=== PATIENT | female | born 1950 | race Caucasian/White ===

== ENCOUNTER → 2018-11-11 08:15 | Outpatient (CLI) | payer MEDICARE, SELFPAY ==
--- NOTE | 2018-11-11 08:19 | CT_ITS ---
CT lung screening EXAM: CT LUNG LOW DOSE WO CONTRAST HISTORY: 41 pack smoking history asymptomatic for lung cancer ITS.REASON: H/O TOBACCO DEPENDENCE ORDERING PHYSICIAN: Anne Whyte MD PATIENT AGE: 68 years COMPARISON: None TECHNIQUE: The exam was performed on a GE Light Speed [address] scanner using 2.90 mGy CTDI. A low dose helical CT CHEST was performed on a multi-detector scanner. All CT scans at the facility use one or more dose reduction, viz: automated exposure control, ma/kV adjustment per patient size (including targeted exams where dose is matched to indication, i.e. head), or iterative reconstruction technique. The LDCT was performed in a facility that meets the criteria for the screening program. Data regarding this exam was submitted to ACR which is an approved registry. The order for this exam indicates that it came as a result of a lung cancer screening counseling shard decision-making visit that included all the elements required of such a visit including smoking cessation. The radiologist interpreting this exam meets the CMS criteria for the LDCT lung cancer screening program. The exam is reported using the Lung-RADS classification scale and reported to the ACR registry. NOTE: This study was performed for the specific purposes of lung cancer screening and is not an alternative to diagnostic chest CT. RADIATION DOSE: CTDI vol(CT dose Index-volume) = 2.90mG DLP (Dose Length Product) = 102.00 mGcm FINDINGS: There is hyperinflation with bronchial thickening consistent with obstructive chronic bronchitis. 5 mm noncalcified nodule right apex 4 mm calcified nodule superior segment right lower lobe 4 mm nodule right middle lobe well-circumscribed Upper abdominal images show possible cholelithiasis. This may be confirmed with ultrasound. IMPRESSION: 1. Lung RADS Category: 2, benign 2. Other findings: COPD, possible cholelithiasis. RECOMMENDATIONS: 12 month LDCT follow-up
--- NOTE | 2018-11-11 08:20 | MM_ITS ---
MM Dig screening mamm BI w/CAD CAD Screening COMPARISON: Digital mammograms with CAD 08/19/2016 and 10/27/2014 INDICATION: There is no personal or family history of breast cancer. There has been a previous biopsy in each breast for benign disease. TECHNIQUE: Standard CC and MLO images were obtained. R2 CAD reviewed. FINDINGS: Scattered fibroglandular densities are seen in each breast. A few benign-appearing microcalcifications in each breast. There is a possible developing asymmetric density central portion of the left breast with a central benign-appearing calcification. The borders are somewhat ill-defined and recommend patient return for spot compression views in MLO and CC projection and ultrasound may be necessary as well. There is a biopsy clip right breast and there is a mole marker right breast. IMPRESSION: Fibrofatty parenchyma with possible developing asymmetric density left breast BI-RADS Category: 0 Need Additional Imaging Evaluation RECOMMENDED FOLLOW-UP: IMM - IMMEDIATE FOLLOW-UP RECOMMENDED (A letter has been sent to the patient regarding results of the study.)
== END ==
PROVIDERS: PCP Family Medicine; Visit Provider Family Medicine
DX: Z12.31 Encounter for screening mammogram for malignant neoplasm of breast (principal); Z12.2 Encounter for screening for malignant neoplasm of respiratory organs; Z87.891 Personal history of nicotine dependence
CPT/HCPCS: 77067

== ENCOUNTER → 2018-11-24 13:37 | Outpatient (CLI) | payer MEDICARE, SELFPAY ==
--- NOTE | 2018-11-24 13:39 | US_ITS ---
MM Dig mamm DX unilat LT CAD Left breast ultrasound complete with axilla INDICATION: Follow-up abnormal screening study ORDERING PHYSICIAN: Anne Whyte MD PATIENT AGE: 68 years COMPARISON: None TECHNIQUE: Problem-solving views performed along with left breast ultrasound FINDINGS: There is average fibroglandular tissue. A stable nodule is present in the retroareolar region at 8 mm. A persistent area of asymmetric density is present in 5:00 region of the left breast at 10 mm. This is associated with a benign-appearing calcific density and corresponds to the abnormality noted on the screening study. Left breast ultrasound with axilla: Are scattered small hypoechoic nodules including a 2 mm area at 12:00 and additional 2 mm area 12:00, 4 mm hypoechoic area at 1:00, a 4 mm cyst at 3:00. At 5:00 there is a suspicious hypoechoic area with poor through transmission of sound. This measures approximately 10 x 8 mm and is suspicious. Biopsy is recommended. Small amount present in the left breast.. IMPRESSION: Suspicious hypoechoic nodule at 10 x 8 mm 5:00 which may correspond to the mammographic abnormality. Ultrasound guided mammotome biopsy is recommended. Postbiopsy mammogram will be needed to confirm that this corresponds to the mammographic abnormality. BI-RADS Category: 4 Suspicious Abnormality-Biopsy Considered RECOMMENDED FOLLOW-UP: BIO - BIOPSY RECOMMENDED (A letter has been sent to the patient regarding results of the study.)
== END ==
PROVIDERS: PCP Family Medicine; Visit Provider Family Medicine
DX: R92.8 Other abnormal and inconclusive findings on diagnostic imaging of breast (principal)
CPT/HCPCS: 76641; 77065

== ENCOUNTER → 2018-12-08 09:24 | Outpatient (CLI) | payer MEDICARE, SELFPAY ==
--- NOTE | 2018-12-08 09:31 | US_ITS ---
US mammotome bx LT, MM clip placement LT INDICATION: Abnormal mammogram and abnormal ultrasound with a suspicious lesion at 5:00 ORDERING PHYSICIAN: Anne Whyte MD PATIENT AGE: 68 years COMPARISON: 11/24/2018 TECHNIQUE: Following obtaining informed consent using ultrasound guidance and reforming time out procedure under aseptic conditions and local anesthesia with 1% buffered lidocaine and deeper anesthesia with lidocaine mixed with epinephrine, a dermotomy was performed and 9 gauge mammotomy needle inserted in appropriate position and multiple mammotomy cores were obtained. The lesion didn't decrease in size. A biopsy clip was then placed. Post clip placement mammogram images show a biopsy changes in the area of interest in the 5:00 region of the left breast with clip in place. The patient did tolerate the procedure well without evidence of immediate complication. Pathology: Invasive ductal carcinoma IMPRESSION: Successful and uneventful mammotome biopsy of the left breast at 5:00 showing invasive ductal carcinoma. Recommendations: Surgical consult with excisional biopsy.
== END ==
PROVIDERS: PCP Family Medicine; Visit Provider Family Medicine
DX: N63.24 Unspecified lump in the left breast, lower inner quadrant (principal); R92.8 Other abnormal and inconclusive findings on diagnostic imaging of breast
CPT/HCPCS: 19083; 76942; 77065; 88305; 88360; C2618

== ENCOUNTER → 2019-02-04 10:15 | Outpatient (CLI) | payer MEDICARE, SELFPAY ==
[2019-02-04 10:36] LABS: Basophils # 0.1 K/mm3 (0-0.2); Basophils % 0.6 % (0.1-2.0); Eosinophils # 0.2 K/mm3 (0.0-0.4); Eosinophils % 2.7 % (0.1-12.0); Hematocrit 40.6 % (37.0-47.0); Hemoglobin 13.6 g/dL (12.2-16.2); Lymphocytes # 1.8 K/mm3 (0.7-4.5); Lymphocytes % 22.8 % (10-50); Mean Corpuscular HGB Conc 33.5 g/dL (31.8-35.4); Mean Corpuscular Hemoglobin 30.2 pg (27.0-31.2); Mean Platelet Volume 7.1 fl (7.4-10.4); Monocytes # 0.5 K/mm3 (0.1-1.0); Monocytes % 5.8 % (1.7-9.3); Neutrophils # 5.3 K/mm3 (1.8-7.8); Platelet Count 306 K/mm3 (142-424); Red Blood Count 4.51 M/mm3 (4.20-5.40); Red Cell Distribution Width 12.8 % (11.5-17.5); White Blood Count 7.7 K/mm3 (4.8-10.8)
[2019-02-04 12:05] LABS: Anion Gap 15.7 mEq/L (5-15); Blood Urea Nitrogen 30 mg/dL (7-18); Calcium 9.4 mg/dL (8.5-10.1); Carbon Dioxide 27 mmol/L (21.0-32.0); Chloride 102 mmol/L (98-107); Creatinine,Serum 1.57 mg/dL (0.55-1.02); Estimated Glomerular Filt Rate 33 ml/min (>60); GFR (African American) 40 ML/MIN (>60); Glucose 96 mg/dL (74-106); Potassium 4.7 mmoL/L (3.5-5.1); Sodium 140 mmol/L (136-145)
== END ==
PROVIDERS: Visit Provider Surgery
DX: C50.912 Malignant neoplasm of unspecified site of left female breast (principal)
CPT/HCPCS: 36415; 80048; 85025

== ENCOUNTER → 2019-03-07 10:31 | Outpatient (CLI) | payer MEDICARE, SELFPAY ==
[2019-03-07 11:57] LABS: Basophils # 0.1 K/mm3 (0-0.2); Basophils % 1.4 % (0.1-2.0); Eosinophils # 0.2 K/mm3 (0.0-0.4); Eosinophils % 2.6 % (0.1-12.0); Hematocrit 42.9 % (37.0-47.0); Hemoglobin 13.7 g/dL (12.2-16.2); Lymphocytes # 1.9 K/mm3 (0.7-4.5); Lymphocytes % 26.1 % (10-50); Mean Corpuscular HGB Conc 31.9 g/dL (31.8-35.4); Mean Corpuscular Hemoglobin 29.5 pg (27.0-31.2); Mean Corpuscular Volume 92.6 fl (81-99); Mean Platelet Volume 7.9 fl (7.4-10.4); Monocytes # 0.6 K/mm3 (0.1-1.0); Monocytes % 7.5 % (1.7-9.3); Neutrophils # 4.6 K/mm3 (1.8-7.8); Neutrophils % 62.4 % (37.0-80.0); Platelet Count 350 K/mm3 (142-424); Red Blood Count 4.64 M/mm3 (4.20-5.40); Red Cell Distribution Width 13.3 % (11.5-17.5); White Blood Count 7.3 K/mm3 (4.8-10.8)
[2019-03-07 12:34] LABS: Alanine Aminotransferase 25 U/L (12-78); Albumin Level 3.6 gm/dL (3.4-5.0); Albumin/Globulin Ratio 1.1 (1.1-1.8); Alkaline Phosphatase 101 U/L (46-116); Anion Gap 15.7 mEq/L (5-15); Aspartate Amino Transferase 14 U/L (15-37); Bilirubin,Total 0.4 mg/dL (0.2-1.0); Blood Urea Nitrogen 29 mg/dL (7-18); Calcium 9.2 mg/dL (8.5-10.1); Carbon Dioxide 26 mmol/L (21.0-32.0); Chloride 101 mmol/L (98-107); Creatinine,Serum 1.37 mg/dL (0.55-1.02); Estimated Glomerular Filt Rate 38 ml/min (>60); GFR (African American) 47 ML/MIN (>60); Globulin 3.3 gm/dl (1.3-3.2); Glucose 93 mg/dL (74-106); Potassium 4.7 mmoL/L (3.5-5.1); Sodium 138 mmol/L (136-145); Total Protein,Serum 6.9 gm/dL (6.4-8.2)
== END ==
PROVIDERS: Visit Provider Internal Medicine Medical Oncology
DX: C50.912 Malignant neoplasm of unspecified site of left female breast (principal)
CPT/HCPCS: 36415; 80053; 85025

== ENCOUNTER 2019-03-10 10:45 | Outpatient (CLI) | payer MEDICARE, SELFPAY ==
[2019-03-10] VITALS (8 sets, daily range): BP systolic 107–128; BP diastolic 51–69; PULSE 79–91; RESP 16–18; TEMP 36.3; O2SAT 97
== END 2019-03-10 13:40 | disposition home or self-care (01) ==
LOC: INF 15:49
PROVIDERS: Visit Provider Internal Medicine Medical Oncology
DX: Z51.11 Encounter for antineoplastic chemotherapy (principal); C50.912 Malignant neoplasm of unspecified site of left female breast
CPT/HCPCS: 96413; 96415; 96417; J7060; J8501; J9070; J9171; Q0166

== ENCOUNTER 2019-03-31 11:49 | Outpatient (CLI) | payer MEDICARE, SELFPAY ==
[2019-03-31 11:51] VITALS: BMI 36.6
[2019-03-31 12:29] LABS: Basophils # 0.1 K/mm3 (0-0.2); Basophils % 0.8 % (0.1-2.0); Eosinophils # 0.1 K/mm3 (0.0-0.4); Eosinophils % 0.8 % (0.1-12.0); Hematocrit 34.5 % (37.0-47.0); Hemoglobin 11.2 g/dL (12.2-16.2); Lymphocytes # 2.2 K/mm3 (0.7-4.5); Lymphocytes % 17.7 % (10-50); Mean Corpuscular HGB Conc 32.5 g/dL (31.8-35.4); Mean Corpuscular Hemoglobin 28.2 pg (27.0-31.2); Mean Corpuscular Volume 86.6 fl (81-99); Mean Platelet Volume 7.2 fl (7.4-10.4); Monocytes # 0.8 K/mm3 (0.1-1.0); Monocytes % 6.1 % (1.7-9.3); Neutrophils # 9.4 K/mm3 (1.8-7.8); Neutrophils % 74.6 % (37.0-80.0); Platelet Count 336 K/mm3 (142-424); Red Blood Count 3.98 M/mm3 (4.20-5.40); Red Cell Distribution Width 13.3 % (11.5-17.5); White Blood Count 12.6 K/mm3 (4.8-10.8)
[2019-03-31 12:40] LABS: Alanine Aminotransferase 25 U/L (12-78); Albumin Level 3.1 gm/dL (3.4-5.0); Albumin/Globulin Ratio 0.9 (1.1-1.8); Alkaline Phosphatase 91 U/L (46-116); Anion Gap 10.9 mEq/L (5-15); Aspartate Amino Transferase 14 U/L (15-37); Bilirubin,Total 0.3 mg/dL (0.2-1.0); Blood Urea Nitrogen 26 mg/dL (7-18); Calcium 9.3 mg/dL (8.5-10.1); Carbon Dioxide 29 mmol/L (21.0-32.0); Chloride 101 mmol/L (98-107); Creatinine Clearance Estimated 61 mL/min (50-200); Creatinine,Serum 1.29 mg/dL (0.55-1.02); Estimated Glomerular Filt Rate 41 ml/min (>60); GFR (African American) 50 ML/MIN (>60); Globulin 3.5 gm/dl (1.3-3.2); Glucose 119 mg/dL (74-106); Potassium 3.9 mmoL/L (3.5-5.1); Sodium 137 mmol/L (136-145); Total Protein,Serum 6.6 gm/dL (6.4-8.2)
[2019-03-31 14:08] VITALS: BP 132/60; PULSE 82; RESP 18; TEMP 36.6; O2SAT 98
[2019-03-31 14:38] VITALS: BP 129/64; PULSE 88; RESP 18; O2SAT 97
[2019-03-31 15:08] VITALS: BP 136/68; PULSE 84; RESP 18; O2SAT 97
[2019-03-31 15:38] VITALS: BP 130/67; PULSE 85; RESP 18; O2SAT 96
[2019-03-31 16:10] VITALS: BP 127/69; PULSE 81; RESP 18; O2SAT 97
== END 2019-03-31 16:10 | disposition home or self-care (01) ==
LOC: INF 11:49
PROVIDERS: Visit Provider Internal Medicine Medical Oncology
DX: Z51.11 Encounter for antineoplastic chemotherapy (principal); C50.912 Malignant neoplasm of unspecified site of left female breast
CPT/HCPCS: 80053; 85025; 96413; 96415; 96417; J8501; J9070; J9171; Q0166

== ENCOUNTER 2019-04-21 09:52 | Outpatient (CLI) | payer MEDICARE, SELFPAY ==
[2019-04-21 09:56] VITALS: BMI 36.0
[2019-04-21 10:15] LABS: Basophils # 0.1 K/mm3 (0-0.2); Basophils % 0.6 % (0.1-2.0); Eosinophils % 0.4 % (0.1-12.0); Hematocrit 32.8 % (37.0-47.0); Hemoglobin 10.4 g/dL (12.2-16.2); Lymphocytes # 1.3 K/mm3 (0.7-4.5); Lymphocytes % 12.1 % (10-50); Mean Corpuscular HGB Conc 31.7 g/dL (31.8-35.4); Mean Corpuscular Hemoglobin 28.8 pg (27.0-31.2); Mean Corpuscular Volume 90.9 fl (81-99); Mean Platelet Volume 7.8 fl (7.4-10.4); Monocytes # 0.6 K/mm3 (0.1-1.0); Monocytes % 5.4 % (1.7-9.3); Neutrophils # 8.7 K/mm3 (1.8-7.8); Neutrophils % 81.5 % (37.0-80.0); Platelet Count 351 K/mm3 (142-424); Red Blood Count 3.61 M/mm3 (4.20-5.40); White Blood Count 10.7 K/mm3 (4.8-10.8)
[2019-04-21 10:28] LABS: Alanine Aminotransferase 20 U/L (12-78); Albumin Level 2.9 gm/dL (3.4-5.0); Albumin/Globulin Ratio 0.9 (1.1-1.8); Alkaline Phosphatase 99 U/L (46-116); Anion Gap 11.9 mEq/L (5-15); Aspartate Amino Transferase 13 U/L (15-37); Bilirubin,Total 0.2 mg/dL (0.2-1.0); Blood Urea Nitrogen 19 mg/dL (7-18); Calcium 8.9 mg/dL (8.5-10.1); Carbon Dioxide 28 mmol/L (21.0-32.0); Chloride 102 mmol/L (98-107); Creatinine Clearance Estimated 57 mL/min (50-200); Creatinine,Serum 1.36 mg/dL (0.55-1.02); Estimated Glomerular Filt Rate 39 ml/min (>60); GFR (African American) 47 ML/MIN (>60); Globulin 3.4 gm/dl (1.3-3.2); Glucose 127 mg/dL (74-106); Potassium 3.9 mmoL/L (3.5-5.1); Sodium 138 mmol/L (136-145); Total Protein,Serum 6.3 gm/dL (6.4-8.2)
[2019-04-21 12:18] VITALS: BP 124/65; PULSE 78; RESP 18; TEMP 36.6; O2SAT 98
[2019-04-21 12:48] VITALS: BP 120/68; PULSE 76; RESP 18; O2SAT 97
[2019-04-21 13:18] VITALS: BP 121/67; PULSE 77; RESP 18; O2SAT 97
[2019-04-21 13:48] VITALS: BP 119/67; PULSE 77; RESP 18; O2SAT 97
[2019-04-21 14:18] VITALS: BP 127/69; PULSE 78; RESP 18; O2SAT 98
== END 2019-04-21 14:18 | disposition home or self-care (01) ==
LOC: INF 09:52
PROVIDERS: Visit Provider Internal Medicine Medical Oncology
DX: Z51.11 Encounter for antineoplastic chemotherapy (principal); C50.912 Malignant neoplasm of unspecified site of left female breast
CPT/HCPCS: 80053; 85025; 96413; 96415; 96417; J8501; J9070; J9171; Q0166

== ENCOUNTER 2019-05-12 10:30 | Outpatient (CLI) | payer MEDICARE, SELFPAY ==
[2019-05-12 10:32] VITALS: BMI 33.6
[2019-05-12 11:01] LABS: Basophils # 0.1 K/mm3 (0-0.2); Basophils % 0.5 % (0.1-2.0); Eosinophils % 0.2 % (0.1-12.0); Hematocrit 32.8 % (37.0-47.0); Hemoglobin 10.4 g/dL (12.2-16.2); Lymphocytes # 1.5 K/mm3 (0.7-4.5); Lymphocytes % 13.6 % (10-50); Mean Corpuscular HGB Conc 31.7 g/dL (31.8-35.4); Mean Corpuscular Hemoglobin 29.4 pg (27.0-31.2); Mean Corpuscular Volume 92.7 fl (81-99); Mean Platelet Volume 6.9 fl (7.4-10.4); Monocytes # 0.6 K/mm3 (0.1-1.0); Monocytes % 5.4 % (1.7-9.3); Neutrophils # 8.6 K/mm3 (1.8-7.8); Neutrophils % 80.3 % (37.0-80.0); Platelet Count 395 K/mm3 (142-424); Red Blood Count 3.54 M/mm3 (4.20-5.40); Red Cell Distribution Width 16.4 % (11.5-17.5); White Blood Count 10.8 K/mm3 (4.8-10.8)
[2019-05-12 12:29] LABS: Alanine Aminotransferase 22 U/L (12-78); Albumin/Globulin Ratio 0.8 (1.1-1.8); Alkaline Phosphatase 97 U/L (46-116); Aspartate Amino Transferase 23 U/L (15-37); Bilirubin,Total 0.3 mg/dL (0.2-1.0); Blood Urea Nitrogen 16 mg/dL (7-18); Carbon Dioxide 26 mmol/L (21.0-32.0); Chloride 100 mmol/L (98-107); Creatinine Clearance Estimated 57 mL/min (50-200); Creatinine,Serum 1.31 mg/dL (0.55-1.02); Estimated Glomerular Filt Rate 40 ml/min (>60); GFR (African American) 49 ML/MIN (>60); Globulin 3.7 gm/dl (1.3-3.2); Glucose 114 mg/dL (74-106); Sodium 134 mmol/L (136-145); Total Protein,Serum 6.7 gm/dL (6.4-8.2)
[2019-05-12 12:32] VITALS: BP 125/51; PULSE 90; RESP 20; TEMP 36.7; O2SAT 98
[2019-05-12 13:02] VITALS: BP 130/50; PULSE 84; RESP 20; O2SAT 97
[2019-05-12 13:32] VITALS: BP 138/51; PULSE 88; RESP 20; O2SAT 97
[2019-05-12 14:02] VITALS: BP 151/60; PULSE 82; RESP 20; O2SAT 97
[2019-05-12 14:45] VITALS: BP 136/55; PULSE 84; RESP 20; O2SAT 98
== END 2019-05-12 14:45 | disposition home or self-care (01) ==
LOC: INF 10:30
PROVIDERS: Visit Provider Internal Medicine Medical Oncology
DX: Z51.11 Encounter for antineoplastic chemotherapy (principal); C50.912 Malignant neoplasm of unspecified site of left female breast
CPT/HCPCS: 80053; 85025; 96413; 96415; 96417; J1642; J8501; J9070; J9171; Q0166

== ENCOUNTER 2019-06-20 13:53 | Outpatient (CLI) | payer MEDICARE, SELFPAY | END 2019-06-20 14:16 | disposition home or self-care (01) | LOC: INF 13:53 | PROVIDERS: Visit Provider Internal Medicine Medical Oncology | DX: Z45.2 Encounter for adjustment and management of vascular access device (principal); C50.912 Malignant neoplasm of unspecified site of left female breast | CPT/HCPCS: 96523; J1642 ==

== ENCOUNTER 2019-07-15 10:25 | Outpatient (CLI) | payer MEDICARE, SELFPAY ==
[2019-07-15 10:27] VITALS: BMI 34.0
[2019-07-15 10:49] LABS: Basophils % 0.6 % (0.1-2.0); Eosinophils # 0.2 K/mm3 (0.0-0.4); Eosinophils % 2.8 % (0.1-12.0); Hematocrit 36.1 % (37.0-47.0); Hemoglobin 11.5 g/dL (12.2-16.2); Lymphocytes # 0.6 K/mm3 (0.7-4.5); Lymphocytes % 10.6 % (10-50); Mean Corpuscular HGB Conc 31.8 g/dL (31.8-35.4); Mean Corpuscular Hemoglobin 32.3 pg (27.0-31.2); Mean Corpuscular Volume 101.4 fl (81-99); Mean Platelet Volume 8.7 fl (7.4-10.4); Monocytes # 0.4 K/mm3 (0.1-1.0); Monocytes % 6.7 % (1.7-9.3); Neutrophils # 4.7 K/mm3 (1.8-7.8); Neutrophils % 79.2 % (37.0-80.0); Platelet Count 282 K/mm3 (142-424); Red Blood Count 3.56 M/mm3 (4.20-5.40); Red Cell Distribution Width 16.5 % (11.5-17.5); White Blood Count 5.9 K/mm3 (4.8-10.8)
[2019-07-15 11:00] LABS: Alanine Aminotransferase 14 U/L (12-78); Albumin Level 3.2 gm/dL (3.4-5.0); Alkaline Phosphatase 75 U/L (46-116); Anion Gap 9.9 mEq/L (5-15); Aspartate Amino Transferase 11 U/L (15-37); Bilirubin,Total 0.3 mg/dL (0.2-1.0); Blood Urea Nitrogen 16 mg/dL (7-18); Calcium 9.4 mg/dL (8.5-10.1); Carbon Dioxide 28 mmol/L (21.0-32.0); Chloride 103 mmol/L (98-107); Creatinine Clearance Estimated 63 mL/min (50-200); Creatinine,Serum 1.16 mg/dL (0.55-1.02); Estimated Glomerular Filt Rate 47 ml/min (>60); GFR (African American) 56 ML/MIN (>60); Globulin 3.3 gm/dl (1.3-3.2); Glucose 101 mg/dL (74-106); Potassium 3.9 mmoL/L (3.5-5.1); Sodium 137 mmol/L (136-145); Total Protein,Serum 6.5 gm/dL (6.4-8.2)
== END 2019-07-15 10:40 | disposition home or self-care (01) ==
LOC: INF 10:25
PROVIDERS: Visit Provider Internal Medicine Medical Oncology
DX: C50.912 Malignant neoplasm of unspecified site of left female breast (principal); Z45.2 Encounter for adjustment and management of vascular access device
CPT/HCPCS: 80053; 85025; J1642

== ENCOUNTER 2019-08-18 10:47 | Outpatient (CLI) | payer MEDICARE, SELFPAY ==
[2019-08-18 10:50] VITALS: BMI 32.0
[2019-08-18 11:19] LABS: Basophils # 0.1 K/mm3 (0-0.2); Basophils % 0.7 % (0.1-2.0); Eosinophils # 0.2 K/mm3 (0.0-0.4); Eosinophils % 2.6 % (0.1-12.0); Hemoglobin 12.2 g/dL (12.2-16.2); Lymphocytes # 0.9 K/mm3 (0.7-4.5); Lymphocytes % 13.5 % (10-50); Mean Corpuscular Hemoglobin 31.3 pg (27.0-31.2); Mean Corpuscular Volume 97.7 fl (81-99); Monocytes # 0.4 K/mm3 (0.1-1.0); Monocytes % 6.1 % (1.7-9.3); Neutrophils # 5.4 K/mm3 (1.8-7.8); Neutrophils % 77.2 % (37.0-80.0); Platelet Count 274 K/mm3 (142-424); Red Blood Count 3.89 M/mm3 (4.20-5.40); Red Cell Distribution Width 14.7 % (11.5-17.5)
[2019-08-18 11:31] LABS: Alanine Aminotransferase 17 U/L (12-78); Albumin Level 3.3 gm/dL (3.4-5.0); Albumin/Globulin Ratio 0.9 (1.1-1.8); Alkaline Phosphatase 85 U/L (46-116); Aspartate Amino Transferase 18 U/L (15-37); Bilirubin,Total 0.3 mg/dL (0.2-1.0); Blood Urea Nitrogen 21 mg/dL (7-18); Calcium 9.3 mg/dL (8.5-10.1); Carbon Dioxide 26 mmol/L (21.0-32.0); Chloride 100 mmol/L (98-107); Creatinine Clearance Estimated 54 mL/min (50-200); Creatinine,Serum 1.27 mg/dL (0.55-1.02); Estimated Glomerular Filt Rate 42 ml/min (>60); GFR (African American) 51 ML/MIN (>60); Globulin 3.5 gm/dl (1.3-3.2); Glucose 96 mg/dL (74-106); Sodium 137 mmol/L (136-145); Total Protein,Serum 6.8 gm/dL (6.4-8.2)
== END 2019-08-18 11:10 | disposition home or self-care (01) ==
LOC: INF 10:47
PROVIDERS: Visit Provider Internal Medicine Medical Oncology
DX: C50.912 Malignant neoplasm of unspecified site of left female breast (principal); Z45.2 Encounter for adjustment and management of vascular access device
CPT/HCPCS: 80053; 85025; J1642

== ENCOUNTER → 2019-11-15 10:51 | Outpatient (CLI) | payer MEDICARE, SELFPAY ==
--- NOTE | 2019-11-15 10:55 | MM_ITS ---
PROCEDURE: MM DIG SCREENING MAMM BI W/CAD CLINICAL INDICATION: SCREENING There has been a previous lumpectomy left breast for malignancy with follow-up radiation therapy. There has been a previous biopsy right breast for benign disease. COMPARISON: [facility] DIG MAMM-SCREEN SALLY from 08/19/2016 [facility] MM Dig screening mamm BI w/CAD from 11/11/2018 DXLT MM Dig mamm DX unilat LT CAD from 11/24/2018 CLIPLT MM clip placement LT from 12/08/2018 DIG MAMM-NEEDLE LOC-LT from 02/09/2019 TECHNIQUE: Standard CC and MLO images and 3D Tomosynthesis was obtained. R2 CAD reviewed. FINDINGS: Moderate postlumpectomy changes are seen left breast with surgical clips at the lumpectomy site and also surgical clips in the axilla secondary to a node resection there is mild skin thickening of the left breasts likely secondary to the previous radiation therapy. Scattered fibroglandular densities are seen in the central portion of the right breast which are stable unchanged from previous exams. A biopsy clip is seen upper outer quadrant right breast. There are few scattered benign-appearing microcalcifications in each breast. There is no new or suspicious lesion in either breast and no suspicious microcalcifications. IMPRESSION: Mild breast density bilaterally with postlumpectomy changes left breast BI-RAD Category: 2 Benign Finding(s) FOLLOW-UP: 1YR 1 Year Follow-up (A letter has been sent to the patient regarding results of the study.) Dictated by: Dr. Derick Capps MD 11/17/2019 10:[address] Derick Capps MD in [place] 11/17/2019 10:04
== END ==
PROVIDERS: PCP Family Medicine; Visit Provider Family Medicine
DX: Z12.31 Encounter for screening mammogram for malignant neoplasm of breast (principal); Z85.3 Personal history of malignant neoplasm of breast
CPT/HCPCS: 77063; 77067

== ENCOUNTER → 2020-01-26 10:18 | Outpatient (CLI) | payer MEDICARE, SELFPAY ==
[2020-01-26 10:57] LABS: Basophils # 0.1 K/mm3 (0-0.2); Basophils % 0.7 % (0.1-2.0); Eosinophils # 0.2 K/mm3 (0.0-0.4); Eosinophils % 1.9 % (0.1-12.0); Hematocrit 40.8 % (37.0-47.0); Lymphocytes # 1.1 K/mm3 (0.7-4.5); Lymphocytes % 13.5 % (10-50); Mean Corpuscular HGB Conc 31.8 g/dL (31.8-35.4); Mean Corpuscular Volume 97.2 fl (81-99); Mean Platelet Volume 7.7 fl (7.4-10.4); Monocytes # 0.5 K/mm3 (0.1-1.0); Monocytes % 6.4 % (1.7-9.3); Neutrophils # 6.1 K/mm3 (1.8-7.8); Neutrophils % 77.5 % (37.0-80.0); Platelet Count 352 K/mm3 (142-424); Red Blood Count 4.19 M/mm3 (4.20-5.40); Red Cell Distribution Width 13.6 % (11.5-17.5); White Blood Count 7.9 K/mm3 (4.8-10.8)
[2020-01-26 12:21] LABS: Chloride 100 mmol/L (98-107)
[2020-01-26 12:22] LABS: Potassium 4.6 mmoL/L (3.5-5.1); Sodium 135 mmol/L (136-145)
[2020-01-26 12:24] LABS: Alanine Aminotransferase 13 U/L (12-78); Aspartate Amino Transferase 22 U/L (14-36); Blood Urea Nitrogen 24 mg/dl (7-17); Estimated Glomerular Filt Rate 41 ml/min (>60); GFR (African American) 49 ML/MIN (>60)
[2020-01-26 12:25] LABS: Albumin Level 4.2 g/dl (3.5-5.0); Albumin/Globulin Ratio 1.6 (1.1-1.8); Alkaline Phosphatase 92 U/L (38-126); Anion Gap 11.6 mEq/L (5-15); Bilirubin,Total 0.4 mg/dl (0.2-1.3); Calcium 10.2 mg/dl (8.4-10.2); Carbon Dioxide 28 mmol/L (22.0-30.0); Globulin 2.7 g/dL (1.3-3.2); Glucose 86 mg/dl (74-100); Total Protein,Serum 6.9 g/dl (6.3-8.2)
== END ==
PROVIDERS: Visit Provider Internal Medicine Medical Oncology
DX: C50.912 Malignant neoplasm of unspecified site of left female breast (principal)
CPT/HCPCS: 36415; 80053; 85025

== ENCOUNTER → 2020-05-07 09:50 | Outpatient (CLI) | payer MEDICARE, SELFPAY ==
--- NOTE | 2020-05-07 09:52 | XR_ITS ---
PROCEDURE: XR DEXA AXIAL SKELETON CLINICAL HISTORY: OSTEOPENIA COMPARISON: No exams were available for comparison FINDINGS: The right hip BMD is 0.669 with a t-score of -1.6. The left hip BMD is 0.726 with a t-score of -1.1. The lumbar spine BMD is 1.076 with a t-score of 0.3. IMPRESSION: This patient is considered osteopenic according to the World Health Organization criteria. Bone density is between 10 and 25 percent below young normal . Fracture risk is moderate. Treatment is advised. Based on these results of follow-up exam is recommended in 2 years Dictated by: Efren Marina MD 05/08/2020 20:15 Efren Marina MD in [place] 05/09/2020 06:16
== END ==
PROVIDERS: PCP Family Medicine; Visit Provider Family Medicine
DX: M85.89 Other specified disorders of bone density and structure, multiple sites (principal)
CPT/HCPCS: 77080

== ENCOUNTER → 2020-08-02 09:12 | Outpatient (CLI) | payer MEDICARE, SELFPAY ==
[2020-08-02 09:56] LABS: Basophils # 0.1 K/mm3 (0-0.2); Eosinophils # 0.1 K/mm3 (0.0-0.4); Eosinophils % 1.6 % (0.1-12.0); Hematocrit 44.6 % (37.0-47.0); Lymphocytes # 1.2 K/mm3 (0.7-4.5); Lymphocytes % 16.6 % (10-50); Mean Corpuscular HGB Conc 31.3 g/dL (31.8-35.4); Mean Corpuscular Hemoglobin 30.8 pg (27.0-31.2); Mean Corpuscular Volume 98.5 fl (81-99); Mean Platelet Volume 7.6 fl (7.4-10.4); Monocytes # 0.5 K/mm3 (0.1-1.0); Monocytes % 6.7 % (1.7-9.3); Neutrophils # 5.2 K/mm3 (1.8-7.8); Platelet Count 319 K/mm3 (142-424); Red Blood Count 4.53 M/mm3 (4.20-5.40); Red Cell Distribution Width 13.2 % (11.5-17.5)
[2020-08-02 10:04] LABS: Chloride 99 mmol/L (98-107); Potassium 5.4 mmoL/L (3.5-5.1); Sodium 137 mmol/L (136-145)
[2020-08-02 10:07] LABS: Alanine Aminotransferase 14 U/L (12-78); Albumin Level 4.2 g/dl (3.5-5.0); Albumin/Globulin Ratio 1.4 (1.1-1.8); Alkaline Phosphatase 86 U/L (38-126); Anion Gap 11.4 mEq/L (5-15); Aspartate Amino Transferase 23 U/L (14-36); Bilirubin,Total 0.4 mg/dl (0.2-1.3); Blood Urea Nitrogen 25 mg/dl (7-17); Carbon Dioxide 32 mmol/L (22.0-30.0); Estimated Glomerular Filt Rate 41 ml/min (>60); GFR (African American) 49 ML/MIN (>60); Glucose 107 mg/dl (74-100); Total Protein,Serum 7.2 g/dl (6.3-8.2)
== END ==
PROVIDERS: Visit Provider Internal Medicine Medical Oncology
DX: C50.912 Malignant neoplasm of unspecified site of left female breast (principal); Z17.0 Estrogen receptor positive status [ER+]
CPT/HCPCS: 36415; 80053; 85025

== ENCOUNTER → 2020-12-25 10:21 | Outpatient (CLI) | payer MEDICARE, SELFPAY ==
--- NOTE | 2020-12-25 10:24 | MM_ITS ---
PROCEDURE: MM DIG SCREENING MAMM BI W/CAD Digital Breast Tomosynthesis Included CLINICAL INDICATION: SCREENING There has been a previous lumpectomy left breast follow-up radiation therapy and a previous biopsy right breast for benign disease. COMPARISON: MG CLIPLT MM clip placement LT from 12/08/2018 MG DIG MAMM-NEEDLE LOC-LT from 02/09/2019 MG MM DIG SCREENING MAMM BI W/CAD from 11/15/2019 TECHNIQUE: Standard CC and MLO images and 3D Tomosynthesis was obtained. R2 CAD reviewed. FINDINGS: Moderate scattered fibroglandular densities are seen throughout both breasts. There are surgical clips deep within the left breast at the lumpectomy site in addition to surgical clips in the left axilla. Stable mild post lumpectomy scarring is seen adjacent to the biopsy clips left breast. There is a biopsy clip upper outer quadrant right breast. There is a mole marker inner quadrant right breast. There are few scattered benign-appearing microcalcifications in each breast. There is a possible new somewhat suspicious lesion central portion right breast with somewhat irregular borders immediately adjacent to a more benign appearing nodular density. These are best seen on the CC projection and somewhat difficult to visualize on the MLO view. However strongly recommend the patient return for spot compression views of the areas marked on the film and ultrasound for additional evaluation. IMPRESSION: Stable exam with postlumpectomy changes left breast with possible new somewhat suspicious lesion right breast BI-RAD Category: 0 Need Additional Imaging Evaluation FOLLOW-UP: IMM Immediate Follow-up Recommended (A letter has been sent to the patient regarding results of the study.) Dictated by: Dr. Derick Capps MD 12/28/2020 11:03 Dr. Derick Capps MD in [place] 12/28/2020 11:03
== END ==
PROVIDERS: PCP Family Medicine; Visit Provider Surgery
DX: Z12.31 Encounter for screening mammogram for malignant neoplasm of breast (principal); Z85.3 Personal history of malignant neoplasm of breast
CPT/HCPCS: 77063; 77067

== ENCOUNTER → 2021-01-03 14:01 | Outpatient (CLI) | payer MEDICARE, SELFPAY ==
--- NOTE | 2021-01-03 14:01 | MM_ITS ---
PROCEDURE: MM DIG MAMM DX UNILAT RT CAD Digital Breast Tomosynthesis Included CLINICAL INDICATION: additonal views per mamm report Follow-up abnormal mammogram COMPARISON: US BR US BREAST-RT COMPLETE W/AXILLA from 11/07/2014 MG DIG MAMM-NEEDLE LOC-LT from 02/09/2019 MG MM DIG SCREENING MAMM BI W/CAD from 11/15/2019 MG MM DIG SCREENING MAMM BI W/CAD from 12/25/2020 US US BREAST RT COMPLETE from 01/03/2021 TECHNIQUE: Problem solving views along with right breast ultrasound FINDINGS: Average fibroglandular tissue. No discrete nodule evident in the area of concern on the spot views or rolled views or the orthogonal view. Right breast ultrasound: There is some scattered small partially calcified rounded nodule/or oil cyst. No malignant appearing mass is evident. At 9 o'clock are 4 x 2 mm and 2 x 2 mm possibly corresponding to the area of concern on the previous mammogram. No other significant anomalies are evident. IMPRESSION: Probably benign. Recommend six-month sonographic and mammographic follow-up BI-RAD Category: 3 Probably Benign Finding Short Term Follow-up FOLLOW-UP: 6M 6Month Follow-up (A letter has been sent to the patient regarding results of the study.) Dictated by: Efren Marina MD 01/05/2021 18:08 Efren Marina MD in [place] 01/05/2021 18:08
== END ==
PROVIDERS: PCP Family Medicine; Visit Provider Surgery
DX: N64.9 Disorder of breast, unspecified (principal)
CPT/HCPCS: 76641; 77061; 77065; G0279

== ENCOUNTER → 2021-01-14 13:06 | Outpatient (CLI) | payer MEDICARE, SELFPAY ==
--- NOTE | 2021-01-14 13:09 | CA_ITS ---
APPROVED REPORT Left Lower Extremity Venous Study for DVT. Ladle Patcher: Erendira Harris RVT Indications Lower Extremity Edema: Left Current Smoker Risk Factors HX BREAST CA Medications Aspirin Vein Imaging CFV (L): compressive, spontaneous, phasic, augmentation FEM (L): compressive, spontaneous, phasic, augmentation POP (L): compressive, spontaneous, phasic, augmentation PTV (L): Compressible GSV (L): Compressible Peroneals (L):Compressible GAS (L): Compressible Findings Study suggests no evidence of DVT of the left lower extremity. Study suggests no evidence of SVT of the left lower extremity. Conclusion Study suggests no evidence of DVT of the left lower extremity. Study suggests no evidence of SVT of the left lower extremity. Critical Notification Physician Notified Date: 01/14/2021 Time: 13:45 Physician Name: Tiffanie Whyte's office Electronically signed by : Efren Marina MD 01/14/2021 17:08:00
[2021-01-14 14:57] LABS: Chloride 102 mmol/L (98-107); Potassium 4.3 mmoL/L (3.5-5.1); Sodium 137 mmol/L (136-145)
[2021-01-14 14:59] LABS: Blood Urea Nitrogen 20 mg/dl (7-17); Estimated Glomerular Filt Rate 49 ml/min (>60); GFR (African American) 60 ML/MIN (>60)
[2021-01-14 15:00] LABS: Alanine Aminotransferase 15 U/L (12-78); Albumin Level 4.2 g/dl (3.5-5.0); Albumin/Globulin Ratio 1.6 (1.1-1.8); Alkaline Phosphatase 104 U/L (38-126); Anion Gap 11.3 mEq/L (5-15); Aspartate Amino Transferase 24 U/L (14-36); Bilirubin,Total 0.5 mg/dl (0.2-1.3); Calcium 9.7 mg/dl (8.4-10.2); Carbon Dioxide 28 mmol/L (22.0-30.0); Globulin 2.6 g/dL (1.3-3.2); Glucose 91 mg/dl (74-100); Total Protein,Serum 6.8 g/dl (6.3-8.2)
== END ==
PROVIDERS: PCP Family Medicine; Visit Provider Family Medicine
DX: M79.605 Pain in left leg (principal); R60.0 Localized edema
CPT/HCPCS: 36415; 80053; 93971

== ENCOUNTER → 2021-06-18 07:08 | Outpatient (CLI) | payer MEDICARE, SELFPAY ==
--- NOTE | 2021-06-18 | CA_ITS ---
APPROVED REPORT Exam: Exercise Treadmill Technologist: Lily Urias Ht: 5 ft 2 in Wt: 192 lbs BSA: 1.88 m2 HR: 80 bpm BP: 152/74 mmHg Indications: Chest pain Medical History Medications: Alprazolam,,,,, Clonidine,,,,, Aspirin,,,,, Vitamin D3,,,,, Citalopram,,,,, Nexium,,,,, Aleve,,,,, DulOXETINE,,,,, CQ10,,,,, LoTREL,,,,, ONdansetron,,,,, ANASTROZOLE,,,,, Stress Test Details Test: Ian HR Resting HR: 84 bpm Max Heart Rate (APMHR): 151.688313 bpm Max HR Achieved: 129 bpm Target HR (85% APMHR): 128.635054 bpm % of APMHR: 85.43 Recovery HR: 79 bpm BP Resting BP: 152.0/74.0 mmHg Max BP: 208.0/70.0 mmHg Recovery BP: 147.0/69.0 mmHg ECG Resting ECG: Normal sinus rhythm, low voltage QRS Clinical Exercise duration: 05:23 min Highest Stage Achieved: Exercise capacity: 4.6 METs Stress ECG Conclusion Patient exercised 5:23 in stage I of Ian Protocol. Stage I was held to completion due to shortness of air. Symptoms: No chest pain. Arrhythmias/Ectopy: Rare PVC (or junctional beat). ST-T Changes: Normal ST response to exercise. Conclusion: Normal GXT to heart rate achieved (79% of PM). Limited exercise tolerance. GXT only (no imaging). Test Summary REST . . . . . . . Sitting REST . . . . . . . Standing REST 04:26 0.0 0.0 84 . 152/ 74 . . Stage 1 01:00 10.0 1.7 92 . . . . Stage 1 . . . . . . . Stage held Stage 1 02:00 10.0 1.7 102 . . . . Stage 1 03:00 10.0 1.7 111 . 208/ 70 . . Stage 1 04:00 10.0 1.7 115 . 208/ 70 . . Stage 1 05:00 10.0 1.7 119 . 208/ 70 . . Stage 1 . . . . . . . Stage resumed Stage 1 05:23 10.0 1.7 119 . 208/ 70 . Stop exercise at 05:23 RECOVERY 01:00 0.0 0.0 111 . . . . RECOVERY 02:00 0.0 0.0 96 . . . . RECOVERY 03:00 0.0 0.0 86 . 185/ 69 . . RECOVERY 04:00 0.0 0.0 82 . 158/ 75 . . RECOVERY 05:00 0.0 0.0 80 . 158/ 75 . . RECOVERY 06:00 0.0 0.0 77 . 147/ 69 . . RECOVERY 07:00 0.0 0.0 80 . 147/ 69 . . RECOVERY 07:37 0.0 0.0 79 . 147/ 69 . . Electronically signed by : David De Paz MD 06/18/2021 10:52:25
--- NOTE | 2021-06-18 07:12 | CT_ITS ---
PROCEDURE: CT LUNG SCREENING CLINICAL INDICATION: H/O NICOTINE DEPENDENCE Just limited due COMPARISON: CT LUNGSCREEN CT lung screening from 11/11/2018 MG MM DIG SCREENING MAMM BI W/CAD from 12/25/2020 TECHNIQUE: The exam was performed on a GE Light Speed [address] scanner using 2.90 mGy CTDI. A low dose helical CT CHEST was performed on a multi-detector scanner. All CT scans at the facility use one or more dose reduction, viz: automated exposure control, ma/kV adjustment per patient size (including targeted exams where dose is matched to indication, i.e. head), or iterative reconstruction technique. The LDCT was performed in a facility that meets the criteria for the screening program. Data regarding this exam was submitted to ACR which is an approved registry. The order for this exam indicates that it came as a result of a lung cancer screening counseling shard decision-making visit that included all the elements required of such a visit including smoking cessation. The radiologist interpreting this exam meets the [facility] criteria for the LDCT lung cancer screening program. The exam is reported using the Lung-RADS classification scale and reported to the ACR registry. NOTE: This study was performed for the specific purposes of lung cancer screening and is not an alternative to diagnostic chest CT. RADIATION DOSE: CTDI vol(CT dose Index-volume) = 2.90mG DLP (Dose Length Product) = 105.25 mGcm FINDINGS: COPD changes. No suspicious nodule is evident. 4 mm noncalcified nodule right lower lobe laterally 4/40. Calcified granuloma right middle lobe inferiorly. OTHER FINDINGS: Postsurgical changes left breast and left axilla. Cholelithiasis IMPRESSION: Lung-RADS Category 2 Benign Appearance or Behavior Follow-up: Continue annual screening with LDCT in 12 months Cholelithiasis also noted. Dictated by: Efren Marina MD 07/01/2021 08:04 Efren Marina MD in [place] 07/01/2021 08:04
--- NOTE | 2021-06-18 07:28 | CA_ITS ---
APPROVED REPORT EXAM: Comprehensive 2D, Doppler, and color-flow Echocardiogram Rehabilitation Therapy Technician: Mary Fatima RDCS Ht: 5 ft 2 in Wt: 194lbs BSA: 1.89 BP: 140/83 mmHg Indications: CP,HTN,HLP,H/O CA BREAST 2D Dimensions LVDd 1.64 cm F: 3.9 - 5.3 M-Mode Dimensions RVDd 1.53 cm (0.9-2.6) LA Diam 2.77 cm (1.9-4.0) LVDd 5.01 cm (3.5-5.7) Ao Diam 2.68 cm (2.0-3.7) LVDs 3.70 cm (3.5-5.7) IVSd 0.85 cm (0.6-1.1) PWd 0.72 cm (0.6-1.1) EF (Teich) 51.10% FS 26.10% EDV (Teich) 118.80 mL TAPSE 2.13 (<1.7) ESV (Teich) 58.10 mL LV Diastology E Decel Time 130.00 (160-240 msec) E/A Ratio 1.1 MED E' 7.00 (< 7 cm/sec) E'/MED E' Ratio 11.47 (>14) LAT E' 6.20 (<10 cm/sec) E/LAT E' Ratio 12.95 (>14) Mitral Valve MV E Max Blue. 80.00 (40-130 cm/s) MV A Velocity 71.00 (40-130 cm/s) E/A Ratio 1.13 MV Decel. Time 130.00 (160-240 ms) MV PHT 38.00 ms Left Ventricle Left atrium is mildly enlarged, left ventricle is normal size, mild concentric left ventricular hypertrophy, visually estimated ejection fraction 55% with no regional wall motion abnormality, grade 1 diastolic dysfunction seen without tissue Doppler evidence of raise left atrial pressure. Right Ventricle Right atrium and right ventricle are normal size and contractility. Aortic Valve Aortic valve is minimally thickened and fibrosed, there is no aortic stenosis or aortic insufficiency. Mitral Valve Mitral valve grossly normal, there is trace mitral regurgitation. Tricuspid Valve Tricuspid valve grossly normal, there is trace tricuspid regurgitation, tricuspid regurgitation jet velocity is inadequate for calculation of the right ventricular systolic pressure. Pulmonic Valve Pulmonic valve is poorly visualized. Great Vessels Aortic root is normal size. Inferior vena cava is normal size with normal inspiratory collapse. Pericardium No significant pericardial effusion noted, there is anterior echo-free space seen. Conclusion 1. Mildly enlarged left atrium, normal left ventricular size, mild concentric hypertrophy, visually estimated ejection fraction 45% with no regional wall motion abnormality, grade 1 diastolic dysfunction seen without tissue Doppler evidence of raise left atrial pressure. 2. Trace mitral and tricuspid regurgitation. 3. No significant pericardial effusion noted, there is anterior echo-free space seen. Electronically signed by : Frank Vasquez MD 06/18/2021 21:59:56
== END ==
PROVIDERS: PCP Family Medicine; Visit Provider Family Medicine
DX: Z87.891 Personal history of nicotine dependence (principal); Z12.2 Encounter for screening for malignant neoplasm of respiratory organs; R07.9 Chest pain, unspecified; I10 Essential (primary) hypertension
CPT/HCPCS: 71271; 93017; 93306

== ENCOUNTER → 2021-07-10 12:49 | Outpatient (CLI) | payer MEDICARE, SELFPAY ==
--- NOTE | 2021-07-10 12:50 | MM_ITS ---
PROCEDURE: MM DIG MAMM DX UNILAT RT CAD Digital Breast Tomosynthesis Included CLINICAL INDICATION: rt breast lump COMPARISON: MG MM DIG SCREENING MAMM BI W/CAD from 11/15/2019 MG MM DIG SCREENING MAMM BI W/CAD from 12/25/2020 MG MM DIG MAMM DX UNILAT RT CAD from 01/03/2021 US US BREAST RT COMPLETE from 01/03/2021 US US BREAST RT COMPLETE from 07/10/2021 TECHNIQUE: Diagnostic mammogram performed with standard images along with spot compression views and right breast ultrasound. FINDINGS: There are scattered areas of fibroglandular density There are scattered calcifications. No suspicious mass or calcifications apparent. Previously noted asymmetry in the lateral right breast is less apparent. Biopsy clip is present in the lateral aspect of the right breast. There is scattered fibroglandular elements Right breast ultrasound: Hypoechoic nodule at 12 o'clock near the nipple with rim like peripheral calcification consistent with AA or oil cyst unchanged. 3 mm cyst 9 o'clock right breast unchanged. 2 mm hypoechoic nodule near this cyst which may represent an additional cyst. IMPRESSION: Benign findings. No evidence of malignancy. No significant change. Recommend resume bilateral screening mammogram December 2021. BI-RAD Category: 2 Benign Finding FOLLOW-UP: 6M 6 Month Follow-up (A letter has been sent to the patient regarding results of the study.) Dictated by: Efren Marina MD 07/22/2021 10:11 Efren Marina MD in [place] 07/22/2021 10:11
== END ==
PROVIDERS: PCP Family Medicine; Visit Provider Surgery
DX: R92.8 Other abnormal and inconclusive findings on diagnostic imaging of breast (principal); N63.10 Unspecified lump in the right breast, unspecified quadrant
CPT/HCPCS: 76641; 77061; 77065; G0279

== ENCOUNTER → 2021-08-29 10:23 | Outpatient (CLI) | payer MEDICARE, SELFPAY ==
[2021-08-29 10:54] LABS: Basophils # 0.1 K/mm3 (0-0.2); Basophils % 0.6 % (0.1-2.0); Eosinophils # 0.1 K/mm3 (0.0-0.4); Eosinophils % 0.8 % (0.1-12.0); Hematocrit 45.6 % (37.0-47.0); Hemoglobin 15.1 g/dL (12.2-16.2); Lymphocytes # 1.5 K/mm3 (0.7-4.5); Lymphocytes % 14.3 % (10-50); Mean Corpuscular Hemoglobin 30.9 pg (27.0-31.2); Mean Corpuscular Volume 93.5 fl (81-99); Mean Platelet Volume 6.9 fl (7.4-10.4); Monocytes # 0.7 K/mm3 (0.1-1.0); Monocytes % 6.8 % (1.7-9.3); Neutrophils % 77.6 % (37.0-80.0); Platelet Count 447 K/mm3 (142-424); Red Blood Count 4.88 M/mm3 (4.20-5.40); Red Cell Distribution Width 13.4 % (11.5-17.5); White Blood Count 10.3 K/mm3 (4.8-10.8)
[2021-08-29 11:23] LABS: Chloride 97 mmol/L (98-107); Potassium 4.6 mmoL/L (3.5-5.1); Sodium 138 mmol/L (136-145)
[2021-08-29 11:26] LABS: Blood Urea Nitrogen 17 mg/dl (7-17); Calcium 10.5 mg/dl (8.4-10.2); Estimated Glomerular Filt Rate 41 ml/min (>60); GFR (African American) 49 ML/MIN (>60); Glucose 97 mg/dl (74-100)
[2021-08-29 15:03] LABS: Anion Gap 15.6 mEq/L (5-15); Carbon Dioxide 30 mmol/L (22.0-30.0)
== END ==
PROVIDERS: Visit Provider Internal Medicine Medical Oncology
DX: C50.911 Malignant neoplasm of unspecified site of right female breast (principal)
CPT/HCPCS: 36415; 80048; 85025

== ENCOUNTER → 2021-10-10 09:12 | Outpatient (CLI) | payer MEDICARE, SELFPAY ==
--- NOTE | 2021-10-10 09:17 | CA_ITS ---
FINAL REPORT TECHNIQUE: Ultrasound images of the deep venous system were obtained from the left groin to the calf veins. CLINICAL HISTORY: . FINDINGS: The deep venous system is normally compressible. Normal flow is identified. IMPRESSION: No evidence of left lower extremity DVT. Reviewed, Interpreted and Dictated by Benjamin Evans MD Transcribed by Simi Blank Authenticated by Benjamin Evans MD on 10/10/2021 11:54:28 AM [facility]
== END ==
PROVIDERS: PCP Family Medicine; Visit Provider Family Medicine
DX: R60.0 Localized edema (principal)
CPT/HCPCS: 93971

== ENCOUNTER → 2021-12-30 13:46 | Outpatient (CLI) | payer MEDICARE, SELFPAY ==
--- NOTE | 2021-12-30 13:47 | MM_ITS ---
PROCEDURE INFORMATION: Exam: MG Bilateral Screening 3D Mammography Exam date and time: 12/30/2021 2:00 PM Age: 71 years old Clinical indication: Screening examination TECHNIQUE: Imaging protocol: Bilateral Screening tomosynthesis and 2D mammography including computer-aided detection (CAD) when performed. COMPARISON: 1. MG MM DIG MAMM DX UNILAT RT CAD 07/10/2021 1:10 PM 2. MG MM DIG MAMM DX UNILAT RT CAD 01/03/2021 2:10 PM 3. MG MM DIG SCREENING MAMM BI W/CAD 12/25/2020 10:37 AM 4. MG MM DIG SCREENING MAMM BI W/CAD 11/15/2019 11:21 AM FINDINGS: MAMMOGRAPHY: Breast composition: There are scattered areas of fibroglandular density. Mass: None. Architectural distortion: No new or suspicious architectural distortion. Calcifications: Stable benign-appearing calcifications are present. No new or suspicious cluster of microcalcifications have developed. Asymmetric density: No new or suspicious asymmetric density is present Skin thickening: None. Axillary adenopathy: Stable postoperative findings are present within the left breast and axilla. IMPRESSION: No mammographic evidence of malignancy. Recommend annual screening mammography unless otherwise clinically indicated. ASSESSMENT: BI-RADS category 2: Benign
== END ==
PROVIDERS: PCP Family Medicine; Visit Provider Surgery
DX: Z12.31 Encounter for screening mammogram for malignant neoplasm of breast (principal); C50.912 Malignant neoplasm of unspecified site of left female breast
CPT/HCPCS: 77063; 77067

== ENCOUNTER → 2022-01-20 12:07 | Outpatient (CLI) | payer MEDICARE, SELFPAY ==
--- NOTE | 2022-01-20 12:13 | XR_ITS ---
FINAL REPORT CLINICAL HISTORY: RIGHT UPPER QUADRANT ABD. PAIN FINDINGS: SINGLE VIEW ABDOMEN A single view of the abdomen was obtained. There are multiple air-filled bowel loops in a nonspecific bowel gas pattern. There are no abnormally dilated loops of small bowel. No abnormal calcifications are identified. IMPRESSION: Multiple air-filled bowel loops in a nonspecific pattern. Reviewed, Interpreted and Dictated by Jose Raul Fowler III, MD Transcribed by Christine Kam Authenticated by Jose Raul Fowler III, MD on 01/20/2022 01:24:08 PM [facility]
== END ==
PROVIDERS: PCP Family Medicine; Visit Provider Family Medicine
DX: R10.11 Right upper quadrant pain (principal)
CPT/HCPCS: 74018

== ENCOUNTER 2022-02-24 11:00 | Outpatient (RCR) | payer MEDICARE, SELFPAY ==
--- NOTE | 2021-11-28 09:03 | HMH.PTOPWND ---
Rehab Outpt Wound Evaluation Rehab OP Wound Evaluation Start: 11/28/21 08:04 Freq: Status: Active Protocol: Document 11/28/21 08:36 HOWARD (Rec: 11/28/21 09:03 HOWARD [id number]) Electronically Signed By Andi Reyes, PT 11/28/21 08:36 Subjective/History History History Pt is 71 yowf who presents with c/o L LE edema x ~ 3 mos with insidious onset of symptoms. She reports she originally had cellulitis and completed a 10 day course of oral abx. She states, I know I had a spider bite and thats what caused all this because I was itching real bad and I had a little red bump on my leg. She now reports continued mild edema which worsens during the day. She reports PMH of L breast cancer ~ 3 yrs ago with lumpectomy, 1 LN removed, and she underwent chemo and radiation. She also has hx of tubal ligation Subjective Subjective Currently pain 2/10 in the L LE, worse with walking. She has 1+ pitting edema to the L lower leg, 0/4 tenderness to palpation, mild erythema noted in the L gaitor area. Lymphedema Eval Classification of Lymphedema Secondary Lymphedema Yes Stemmer's sign Stemmer's Sign no Stage of Lymphedema Lymphedema stages Stage I (Pitting edema, reduces w/ elevation, no fibrosis) Skin Changes Dry Skin Yes Redness Yes Discoloration of Skin Yes Other Changes Yes Pain Scale Pain Scale (0-10) 2 Radiation Therapy Has received radiation therapy yes Chemo Therapy Has received chemo therapy yes Affected Extremities Areas Affected by Lymphedema/Edema Left Upper Extremity,Left Lower Extremity,Left Breast, Left Axilla Manual Lymphatic Drainage Treatment Area MLD Treatment Area Left Upper Extremity,Left Lower Extremity,Left Breast, Left Axilla Wound Problems/Impairments Impairments Problems/Impairmments Impaired Standing,Impaired
--- NOTE | 2021-12-23 11:12 | HMH.RHREAS ---
Rehab Reassessment Rehab OP Re-assessment Start: 12/23/21 11:07 Freq: Status: Active Protocol: Document 12/23/21 11:09 HOWARD (Rec: 12/23/21 11:11 HOWARD [id number]) Electronically Signed By Andi Reyes, PT 12/23/21 11:09 Rehab Re-assessment Subjective Subjective Pt reports less pain in the L LE overall. I notice a lot less swelling in the mornings when I wake up now. Objective Objective Notes 1+ pitting edema remains along lateral side of L lower leg. Less fibrotic edema noted. No tenderness to palpation. Assessment Progress Assessment Progressing as Expected Assessment Notes Pt has show significant change with less pitting edema throughout the L LE. Improving skin and tissue quality throughout the L lower leg. Less pain as well. Patient goals met ST,2,3 Goals Not Met LT,2,3,4,5 Revised Goals none Plan Plan Continue per initial POC. Frequency of Therapy 2 x/wk Duration of therapy 4 wks Time and Billing Re-Eval Time 14 Re-Eval Billing Units 1 PHYSICIAN CERTIFICATION: I certify the specified therapy services for Iveth Purcell are required, authorized, and reviewed every 30 days.
--- NOTE | 2022-01-20 10:36 | HMH.RHREAS ---
Rehab Reassessment Rehab OP Re-assessment Start: 12/23/21 11:07 Freq: Status: Active Protocol: Document 01/20/22 10:18 HOWARD (Rec: 01/20/22 10:21 HOWARD [id number]) Electronically Signed By Andi Reyes, PT 01/20/22 10:18 Rehab Re-assessment Subjective Subjective My legs feel a whole lot better! Pain in L LE 2/10 at worst. Objective Objective Notes Circumferential measurements: R LE total is 261.0 cm. L LE total is 268.2 cm. 1+ pitting edema remains along lateral side of L ankle only. No tenderness to palpation. Assessment Progress Assessment Progressing as Expected Assessment Notes Pt with decreased pain in L LE and improved feelings of LE heaviness. Less pitting and fibrotic edema noted. Continues to have worse edema in the L LE throughout vs the R. Patient goals met ST,2,3 Goals Not Met LT,2,3,4,5 Revised Goals none Plan Plan Continue per initial POC. Frequency of Therapy 2 x/wk Duration of therapy 4 wks Time and Billing Re-Eval Time 13 Re-Eval Billing Units 1 PHYSICIAN CERTIFICATION: I certify the specified therapy services for Iveth Purcell are required, authorized, and reviewed every 30 days.
--- NOTE | 2022-02-17 11:38 | HMH.RHREAS ---
Rehab Reassessment Rehab OP Re-assessment Start: 12/23/21 11:07 Freq: Status: Active Protocol: Document 02/17/22 11:34 HOWARD (Rec: 02/17/22 11:38 HOWARD [id number]) Electronically Signed By Andi Reyes, PT 02/17/22 11:34 Rehab Re-assessment Subjective Subjective Pt reports feelin gmuch better overall, but states, at the end of the day my leg feels hot on the inside and I seem more tired, otherwise its really good. Objective Objective Notes 1+ pitting edema remains in L ankle only. No tenderness to palpation. No Pain noted, 0/10. Assessment Progress Assessment Progressing as Expected Assessment Notes Significant changes noted with less pitting edema and less fibrotic edema. Pt with much improved ADLs at this time and mobility is continuing to increase. Patient goals met ST,2,3 Goals Not Met LT,2,3,4,5 Revised Goals none Plan Plan Continue per initial POC. Frequency of Therapy 2 x/wk Duration of therapy 4 wks Time and Billing Re-Eval Time 15 Re-Eval Billing Units 1 PHYSICIAN CERTIFICATION: I certify the specified therapy services for Iveth Purcell are required, authorized, and reviewed every 30 days.
== END 2022-02-24 11:05 | disposition home or self-care (01) ==
LOC: PT 11:00
PROVIDERS: PCP Family Medicine; Visit Provider Family Medicine
DX: I89.0 Lymphedema, not elsewhere classified (principal)
CPT/HCPCS: 97140; 97162; 97164

== ENCOUNTER → 2022-03-06 10:42 | Outpatient (CLI) | payer MEDICARE, SELFPAY ==
[2022-03-06 11:02] LABS: Basophils # 0.1 K/mm3 (0-0.2); Basophils % 0.7 % (0.1-2.0); Eosinophils # 0.1 K/mm3 (0.0-0.4); Eosinophils % 1.1 % (0.1-12.0); Hematocrit 40.1 % (37.0-47.0); Hemoglobin 13.4 g/dL (12.2-16.2); Lymphocytes # 1.2 K/mm3 (0.7-4.5); Lymphocytes % 17.8 % (10-50); Mean Corpuscular HGB Conc 33.4 g/dL (31.8-35.4); Mean Corpuscular Hemoglobin 29.9 pg (27.0-31.2); Mean Corpuscular Volume 89.6 fl (81-99); Monocytes # 0.5 K/mm3 (0.1-1.0); Monocytes % 7.6 % (1.7-9.3); Neutrophils % 72.8 % (37.0-80.0); Platelet Count 327 K/mm3 (142-424); Red Blood Count 4.48 M/mm3 (4.20-5.40); Red Cell Distribution Width 13.2 % (11.5-17.5); White Blood Count 6.9 K/mm3 (4.8-10.8)
[2022-03-06 11:06] LABS: Chloride 99 mmol/L (98-107); Potassium 3.9 mmoL/L (3.5-5.1); Sodium 134 mmol/L (136-145)
[2022-03-06 11:09] LABS: Alanine Aminotransferase 23 U/L (12-78); Albumin Level 4.1 g/dl (3.5-5.0); Albumin/Globulin Ratio 1.4 (1.1-1.8); Alkaline Phosphatase 110 U/L (38-126); Anion Gap 9.9 mEq/L (5-15); Aspartate Amino Transferase 30 U/L (14-36); Bilirubin,Total 0.5 mg/dl (0.2-1.3); Blood Urea Nitrogen 19 mg/dl (7-17); Carbon Dioxide 29 mmol/L (22.0-30.0); Estimated Glomerular Filt Rate 40 ml/min (>60); GFR (African American) 49 ML/MIN (>60); Glucose 101 mg/dl (74-100); Total Protein,Serum 7.1 g/dl (6.3-8.2)
== END ==
PROVIDERS: PCP Family Medicine; Visit Provider Internal Medicine Medical Oncology
DX: C50.919 Malignant neoplasm of unspecified site of unspecified female breast (principal); Z17.0 Estrogen receptor positive status [ER+]
CPT/HCPCS: 36415; 80053; 85025

== ENCOUNTER → 2022-05-21 13:08 | Outpatient (CLI) | payer MEDICARE, SELFPAY ==
--- NOTE | 2022-05-21 13:16 | XR_ITS ---
FINAL REPORT CLINICAL HISTORY: SALLY KNEE PAIN FINDINGS: RIGHT KNEE Three views of the right knee reveal no evidence of fracture or dislocation. The bony alignment is normal. There are [id number] degenerative changes which are worse involving the medial compartment. There is mild medial compartment narrowing. There is a small joint effusion. No localized soft tissue abnormality is identified. IMPRESSION: Mild to moderate degenerative change as described. Small joint effusion. Reviewed, Interpreted and Dictated by Jose Raul Fowler III, MD Transcribed by Nadiya Marx Authenticated and [facility]
--- NOTE | 2022-05-21 13:16 | XR_ITS ---
FINAL REPORT CLINICAL HISTORY: SALLY KNEE PAIN FINDINGS: LEFT KNEE Three views of the left knee were obtained. There is no acute fracture or dislocation. Visualized joint spaces are normally aligned. There are mild degenerative changes. There is no joint effusion. Soft tissues are unremarkable. IMPRESSION: Mild degenerative change with no acute bony abnormality. Reviewed, Interpreted and Dictated by Jose Raul Fowler III, MD Transcribed by Nadiya Marx Authenticated and [facility]
== END ==
PROVIDERS: PCP Family Medicine; Visit Provider Nurse Practitioner Family
DX: M25.562 Pain in left knee (principal); M25.561 Pain in right knee
CPT/HCPCS: 73562

== ENCOUNTER → 2022-05-29 11:04 | Outpatient (CLI) | payer MEDICARE, SELFPAY ==
--- NOTE | 2022-05-29 11:10 | XR_ITS ---
FINAL REPORT CLINICAL HISTORY: SOB COUGH x 2019little worse recently....., swabbed for covid but no results, hx of breast cancer in 2019, hx of smoking FINDINGS: Two views of the chest were obtained. The heart size and pulmonary vascularity are within normal limits. The mediastinum is normal. No acute pulmonary abnormality is identified. There is no pneumothorax. The bony thorax is intact. IMPRESSION: No active cardiopulmonary disease. Reviewed, Interpreted and Dictated by Jose Raul Fowler III, MD Transcribed by Clinton Anderson Authenticated and [facility]
[2022-05-29 11:18] LABS: Coronavirus 19, PCR Not Detected (NotDetected); Influenza A, PCR Not Detected (NotDetected); Influenza B, PCR Not Detected (NotDetected)
== END ==
PROVIDERS: PCP Family Medicine; Visit Provider Surgery
DX: R05.9 Cough, unspecified (principal); Z01.812 Encounter for preprocedural laboratory examination; Z20.822 Contact with and (suspected) exposure to COVID-19
CPT/HCPCS: 71046; C9803; U0003; U0005

== ENCOUNTER → 2022-06-16 12:55 | Outpatient (CLI) | payer MEDICARE, SELFPAY ==
--- NOTE | 2022-06-16 12:58 | MR_ITS ---
FINAL REPORT CLINICAL HISTORY: BILATERAL KNEE PAIN. PATIENT TWISTED KNEE AND FELL. PAIN ON MEDIAL SIDE OF KNEE. INSTABILITY. FINDINGS: Multiplanar MR imaging of the right knee was performed without contrast. There is a tear of the posterior horn of the medial meniscus. There is lateral meniscal degeneration with a possible tear of the posterior horn. The anterior and posterior cruciate ligaments are intact. The medial collateral ligament and lateral ligamentous complex are intact. There are foci of patellar tendinitis. There is no evidence of fracture. There are mild and moderate degenerative changes. There is mild and moderate chondromalacia. A small joint effusion is seen. The musculature is intact. There is a moderate popliteal cyst. IMPRESSION: Tear of the posterior horn of the medial meniscus. Lateral meniscal degeneration with a possible tear of the posterior horn. Patellar tendinitis. Mild and moderate degenerative changes with mild and moderate chondromalacia. Reviewed, Interpreted and Dictated by Jose Raul Fowler III, MD Transcribed by Sanjana Marinelli Authenticated and [facility]
--- NOTE | 2022-06-16 12:58 | MR_ITS ---
FINAL REPORT CLINICAL HISTORY: BILATERAL KNEE PAIN. PATIENT FELL AND HAS LATERAL SIDED KNEE PAIN. INSTABILITY FINDINGS: Multiplanar MR imaging of the right knee was performed without contrast. There is a tear of the posterior horn of the medial meniscus. The lateral meniscus is intact. The anterior and posterior cruciate ligaments are intact. The medial collateral ligament and lateral ligamentous complex are intact. There are foci of patellar tendinitis. There is no evidence of fracture. There are oxyb-vd-ggudyahb degenerative changes. There is mild moderate chondromalacia. A small joint effusion is seen. The musculature is intact. There is a moderate popliteal cyst. IMPRESSION: Tear of the posterior horn of the medial meniscus. Patellar tendinitis. Mild to moderate degenerative changes with mild to moderate chondromalacia. Reviewed, Interpreted and Dictated by Jose Raul Fowler III, MD Transcribed by Sanjana Marinelli Authenticated and [facility]
--- NOTE | 2022-06-16 14:41 | US_ITS ---
PROCEDURE INFORMATION: Exam: US Left Breast, Complete Exam date and time: 06/16/2022 2:53 PM Age: 72 years old Clinical indication: Nipple discharge; Left; Prior surgery; Surgery date: 6+ months; Surgery type: Lumpectomy 2019; Additional info: Nipple discoloration TECHNIQUE: Imaging protocol: Complete ultrasound of all four quadrants of the Left breast and the retroareolar regions, including ultrasound of the axilla when performed. COMPARISON: BREASTLT US breast LT complete 11/24/2018 2:30 PM FINDINGS: Breast: Sonographic images of left breast including the retroareolar region, all 4 quadrants and the axilla demonstrates an irregularly marginated hypoechoic solid appearing mass in the 6 o'clock axis 2 cm from the nipple measuring 0.3 x 0.2 x 0.5 cm in dimension. Architectural distortion and clips in the 5 o'clock axis 4 cm from the nipple are within the patient's prior lumpectomy site. No suspicious architectural distortion or suspicious acoustical shadowing. No skin thickening or axillary adenopathy. IMPRESSION: A diagnostic left mammogram is recommended for further evaluation of left nipple discharge as well as for correlative purposes for an irregularly marginated 6 o'clock axis mass seen on sonography. ASSESSMENT: BI-RADS Category 0: Incomplete- Need Additional Imaging Evaluation and/or Prior Mammograms for Comparison
== END ==
PROVIDERS: PCP Family Medicine; Visit Provider Nurse Practitioner Family
DX: N64.4 Mastodynia (principal); M25.562 Pain in left knee; M25.561 Pain in right knee
CPT/HCPCS: 73721; 76642

== ENCOUNTER 2022-07-01 12:18 | Observation (INO) | payer MEDICARE, SELFPAY ==
[2022-07-01] VITALS (9 sets, daily range): BP systolic 135–165; BP diastolic 60–112; PULSE 84–100; RESP 18–20; TEMP 36.6–36.8; O2SAT 92–100; BMI 34.7; BMI 33.9
[2022-07-01 13:04] LABS: Chloride 94 mmol/L (98-107); Potassium 3.5 mmoL/L (3.5-5.1); Sodium 137 mmol/L (136-145)
[2022-07-01 13:05] LABS: Basophils # 0.1 K/mm3 (0-0.2); Basophils % 0.7 % (0.1-2.0); Eosinophils # 0.2 K/mm3 (0.0-0.4); Eosinophils % 1.6 % (0.1-12.0); Hematocrit 42.9 % (37.0-47.0); Hemoglobin 13.8 g/dL (12.2-16.2); Lymphocytes # 1.3 K/mm3 (0.7-4.5); Lymphocytes % 9.4 % (10-50); Mean Corpuscular HGB Conc 32.3 g/dL (31.8-35.4); Mean Corpuscular Hemoglobin 30.1 pg (27.0-31.2); Mean Corpuscular Volume 93.2 fl (81-99); Mean Platelet Volume 8.5 fl (7.4-10.4); Monocytes # 0.8 K/mm3 (0.1-1.0); Monocytes % 6.1 % (1.7-9.3); Neutrophils # 11.1 K/mm3 (1.8-7.8); Neutrophils % 82.3 % (37.0-80.0); Platelet Count 405 K/mm3 (142-424); White Blood Count 13.4 K/mm3 (4.8-10.8)
[2022-07-01 13:06] LABS: Blood Urea Nitrogen 21 mg/dl (7-17); Creatinine Clearance Estimated 65 mL/min (50-200); Estimated Glomerular Filt Rate 49 ml/min (>60); GFR (African American) 59 ML/MIN (>60)
[2022-07-01 13:07] LABS: Alanine Aminotransferase 37 U/L (12-78); Albumin Level 4.3 g/dl (3.5-5.0); Albumin/Globulin Ratio 1.2 (1.1-1.8); Alkaline Phosphatase 144 U/L (38-126); Anion Gap 16.5 mEq/L (5-15); Aspartate Amino Transferase 45 U/L (14-36); Bilirubin,Total 0.7 mg/dl (0.2-1.3); Calcium 9.4 mg/dl (8.4-10.2); Carbon Dioxide 30 mmol/L (22.0-30.0); Globulin 3.6 g/dL (1.3-3.2); Glucose 118 mg/dl (74-100); Total Protein,Serum 7.9 g/dl (6.3-8.2)
--- NOTE | 2022-07-01 13:13 | CT_ITS ---
FINAL REPORT CLINICAL HISTORY: RUQ PAIN FINDINGS: CT OF THE ABDOMEN AND PELVIS WITH CONTRAST Axial CT images of the abdomen and pelvis were obtained after the administration of intravenous contrast. Coronal reformatted images were also obtained and reviewed.This study was performed with techniques to keep radiation doses as low as reasonably achievable (ALARA). Individualized dose reduction techniques using automated exposure control or adjustment of mA and/or kV according to the patient's size were employed. Abdomen: The lung bases are clear. The heart is normal in size. There is a gallstone in the neck of the gallbladder. There are other gallstones. There is gallbladder wall thickening and pericholecystic fat stranding. Findings are most worrisome for acute cholecystitis. There is mild biliary duct dilatation. Common bile duct stone cannot be excluded. There is focal fatty infiltration of the left hepatic lobe. The spleen is unremarkable. There is mild enlargement of the left adrenal gland that may represent an adenoma. The pancreas has an unremarkable appearance. The kidneys are normal, without evidence of mass or hydronephrosis. The aorta is normal in caliber. No mass or abnormal fluid collection is seen. Pelvis: The appendix is normal. There is mild bladder wall thickening that may be inflammatory. There is no evidence of mass or adenopathy. There is no evidence of bowel obstruction. IMPRESSION: Cholelithiasis with gallbladder wall thickening and pericholecystic fat stranding most worrisome for acute cholecystitis. Common bile duct stone cannot be excluded. If indicated, MRCP could further evaluate. Reviewed, Interpreted and Dictated by Jose Raul Fowler III, MD Transcribed by Clinton Anderson Authenticated and [facility]
--- NOTE | 2022-07-01 13:28 | HMH.EDABDPAI ---
Discharge Plan Disposition Patient Disposition: Admitted As Inpatient Condition: Fair Chief Complaint: Abdominal Pain Clinical Impressions Clinical Impression: Acute cholecystitis Discharge ED Provider: Travis Magallanes Abdominal Pain HPI General Chief Complaint: Abdominal Pain Stated Complaint: pain on Rt side, Soa Time Seen by Provider: 07/01/22 12:30 Mode of Arrival: Wheelchair Limitations: No Limitations Description of Symptoms (Recalled from ER Triage Doc. by RN): PT REPORTS RIGHT SIDED PAIN BETWEEN RIBS AND PELVIS SINCE THURSDAY. REPORTS BM ON THURSDAY. VOMITING ON THURSDAY. NAUSEA AT THIS TIME. DENIES FEVER OR CHILLS History of Present Illness HPI narrative: Patient is a 72-year-old female with no pertinent past medical history who presents with concern for right-sided abdominal pain. She states that since Thursday she has been having right-sided abdominal pain. She says it is intermittent it is worse when she is eating. She has not had a bowel movement since Thursday and says that she is at intermittent times where she vomited. She said she decided to come in today because she has not been able to eat well as she gets nauseous. No fever or chills. She locates the most of her pain in the right upper quadrant but says that it does extend down the right side. Denies any urinary symptoms. She says that she has struggled with constipation in the past. Related Data Home Medications Medication Instructions Recorded Confirmed alprazolam 0.5 mg tablet 0.5 mg PO BID Anxiety 12/24/18 07/01/22 aspirin 81 mg tablet,delayed 81 mg PO DAILY Heart disease 12/24/18 07/01/22 release cholecalciferol (vitamin D3) 25 1,000 unit PO DAILY Supplement 12/24/18 07/01/22 mcg (1,000 unit) capsule duloxetine 60 mg capsule,delayed 60 mg PO DAILY moood 12/24/18 07/01/22 release (Cymbalta) coenzyme Q10 50 mg-vitamin E 5 1 each PO DAILY Supplement 02/04/19 07/01/22 unit capsule anastrozole 1 mg tablet 1 mg PO DAILY chemo 08/19/19 07/01/22 bupropion HCl 150 mg 24 hr tablet, 150 mg PO DAILY Depression 07/01/21 07/01/22 extended release hydrochlorothiazide 12.5 mg tablet 12.5 mg PO DAILY High blood 07/01/21 07/01/22 pressure calcium carbonate 600 mg calcium 600 mg PO DAILY Supplement 08/29/21 07/01/22 (1,500 mg) tablet (Calcium) clotrimazole 1 % topical cream 1 applic topical BID RASH 08/29/21 07/01/22 (Antifungal (clotrimazole)) fexofenadine 60 mg tablet (So 60 mg PO Q12H Allergy symptoms 08/29/21 07/01/22 Allergy) amlodipine 5 mg tablet 5 mg PO DAILY High blood pressure 03/06/22 07/01/22 clonidine HCl 0.2 mg tablet 0.2 mg PO DAILY High blood pressure 03/06/22 07/01/22 losartan 25 mg tablet 25 mg PO DAILY High blood pressure 03/06/22 07/01/22 Allergies Allergy/AdvReac Type Severity Reaction Status Date / Time celecoxib [From CELEBREX] Allergy Intermediate RASH, Verified 06/24/22 13:19 HIVES, ITCHING Sulfa (Sulfonamide Allergy Intermediate I-HIVES, Verified 06/24/22 13:19 Antibiotics) RASH [SULFA (SULFONAMIDE ANTIBIOTICS)] hydrocodone Allergy Swelling Verified 06/24/22 13:19 of Lip/Tongue/Throat iodine Allergy Blister Verified 06/24/22 13:19 acetaminophen [From Percocet] AdvReac Hyper, No Verified 06/24/22 13:19 relief oxycodone [From Percocet] AdvReac Hyper, No Verified 06/24/22 13:19 relief PFSH PFSH Medical History (Updated 07/01/22 @ 18:16 by Travis Magallanes MD) Breast cancer, right Depression Fibromyalgia Hypertension Surgical History (Updated 07/01/22 @ 12:38 by Mariely Fraire RN) History of lumpectomy Tubal ligation status Social History Smoking Status: Current every day smoker tobacco type: cigarettes packs per day: 1 second hand exposure: No alcohol intake: never substance use type: denies use current occupational status: unemployed Travel in the last 8 weeks: N
[2022-07-01 13:36] LABS: Lipase 25 U/L (23-300)
--- NOTE | 2022-07-01 13:50 | PC.NURSE ---
PT TO CT AT THIS TIME
--- NOTE | 2022-07-01 13:58 | PC.NURSE ---
PT RETURNED FROM CT AT THIS TIME
--- NOTE | 2022-07-01 14:39 | PC.NURSE ---
dr crane paged
--- NOTE | 2022-07-01 15:10 | PC.NURSE ---
2ND PAGE OUT FOR DR BOOTH
--- NOTE | 2022-07-01 15:12 | PC.NURSE ---
DR PEGUERO TALKING TO DR BOOTH
--- NOTE | 2022-07-01 15:14 | US_ITS ---
PROCEDURE INFORMATION: Exam: US Abdomen, Limited; Right Upper Quadrant Exam date and time: 07/01/2022 3:56 PM Age: 72 years old Clinical indication: Abdominal pain; Additional info: Concern for acute cholecystitis TECHNIQUE: Imaging protocol: Real time ultrasound of the abdomen with image documentation. Limited exam focused on the right upper quadrant. COMPARISON: CT ABDOMEN PELVIS W CON 07/01/2022 1:44 PM FINDINGS: Liver: Normal. No masses. Gallbladder: Multiple gallstones with associated sludge demonstrated. There is thickening of the gallbladder wall. A small amount of pericholecystic fluid was demonstrated. Biliary ducts: 7 mm Pancreas: Pancreas suboptimally visualized. Right kidney: 8.7 cm in length by 3.7 cm in AP dimensions by 6.2 cm transversely. No evidence of hydronephrosis or perinephric fluid. Portal venous: Hepatopetal flow in the portal vein. IMPRESSION: Cholelithiasis and cholecystitis.
--- NOTE | 2022-07-01 15:18 | EXP.SURG.CON ---
History of Present Illness *Admission Date: 07/01/22 *Reason for visit:: Right-sided abdominal pain *History of present illness: Patient is a 72-year-old female who is very well-known to me as she has a history of left-sided breast cancer treated with breast conservation therapy. She had actually recently been seen in the office for a routine follow-up on 06/24/2010. Interestingly, when the patient had been seen several weeks ago in the office she was having some respiratory issues and I had a concern for possible COVID and I therefore had her undergo testing for this on 05/29/2022 which was negative. However, she had tested positive a couple days later. She presents to the emergency department in the afternoon today on 07/01/2022 with complaints of right-sided abdominal pain from her ribs to the pelvis for the past 3 days. It has been worse postprandially. She has been moving her bowels without difficulty. She presented to the emergency department today because that she has had poor nutritional intake due to postprandial nausea. Work-up in the emergency department revealed findings of a leukocytosis of 13,400 with 82% neutrophils. Liver function tests reveal AST of 45, ALT normal, bilirubin normal, alkaline phosphatase 144. She underwent CT scan which reveals findings of cholelithiasis with gallbladder wall thickening and pericholecystic fat stranding most worrisome for acute cholecystitis. Common bile duct stone cannot be excluded. If indicated, MRCP could further evaluate. [facility] Medical History (Updated 07/01/22 @ 15:26 by Jose Raul Carlos MD) Breast cancer, right Depression Fibromyalgia Hypertension Surgical History (Updated 07/01/22 @ 12:38 by Marieyl Fraire RN) History of lumpectomy Tubal ligation status Social History Smoking Status: Current every day smoker tobacco type: cigarettes packs per day: 1 second hand exposure: No alcohol intake: never substance use type: denies use current occupational status: unemployed Travel in the last 8 weeks: None household members: significant other housing: house current occupational exposures/hazards: No caffeine: Yes Meds Home Medications and Allergies Home Medications Medication Instructions Recorded Confirmed Type alprazolam 0.5 mg tablet 0.5 mg PO BID Anxiety 12/24/18 06/24/22 History aspirin 81 mg tablet,delayed 81 mg PO DAILY Heart disease 12/24/18 06/24/22 History release cholecalciferol (vitamin D3) 25 1,000 unit PO DAILY Supplement 12/24/18 06/24/22 History mcg (1,000 unit) capsule citalopram 10 mg tablet 10 mg PO DAILY Pain 12/24/18 06/24/22 History duloxetine 60 mg capsule,delayed 60 mg PO DAILY moood 12/24/18 06/24/22 History release (Cymbalta) coenzyme Q10 50 mg-vitamin E 5 1 each PO DAILY Supplement 02/04/19 06/24/22 History unit capsule anastrozole 1 mg tablet 1 mg PO DAILY chemo 08/19/19 06/24/22 History bupropion HCl 150 mg 24 hr tablet, mg PO 07/01/21 06/24/22 History extended release hydrochlorothiazide 12.5 mg tablet 12.5 mg PO 07/01/21 06/24/22 History calcium carbonate 600 mg calcium 600 mg PO DAILY 08/29/21 06/24/22 History (1,500 mg) tablet (Calcium) clotrimazole 1 % topical cream 1 applic topical BID 08/29/21 06/24/22 History (Antifungal (clotrimazole)) fexofenadine 60 mg tablet (So 60 mg PO Q12H 08/29/21 06/24/22 History Allergy) amlodipine 5 mg tablet 5 mg PO DAILY 03/06/22 06/24/22 History clonidine HCl 0.2 mg tablet 0.2 mg PO DAILY 03/06/22 06/24/22 History losartan 25 mg tablet 25 mg PO DAILY 03/06/22 06/24/22 History New Prescriptions to Start Prescriptions: Allergies Allergy/AdvReac Type Severity Reaction Status Date / Time celecoxib [From CELEBREX] Allergy Intermediate RASH, Verified 06/24/22 13:19 HIVES, ITCHING Sulfa (Sulfonamide Allergy Intermediate I-HIVES, Verified 06/24/22 13:19 Antibiotics)
--- NOTE | 2022-07-01 15:40 | PC.NURSE ---
DR BOOTH AT BS
--- NOTE | 2022-07-01 15:40 | PC.NURSE ---
DR. BOOTH AT BEDSIDE
--- NOTE | 2022-07-01 15:52 | PC.NURSE ---
PT TO US AT THIS TIME
[2022-07-01 15:54] LABS: Influenza A, PCR Not Detected (NotDetected); Influenza B, PCR Not Detected (NotDetected)
[2022-07-01 16:52] LABS: Coronavirus 19, PCR Detected (NotDetected)
--- NOTE | 2022-07-01 17:07 | PC.NURSE ---
Notified house of admission
--- NOTE | 2022-07-01 18:43 | PC.NURSE ---
REPORT GIVEN TO RADHIKA DUTTON RN AT THIS TIME
--- NOTE | 2022-07-01 18:55 | PC.NURSE ---
pt arrived to the floor at this time
[2022-07-02] VITALS (8 sets, daily range): BP systolic 113–172; BP diastolic 55–68; PULSE 76–101; RESP 16–20; TEMP 36.4–37.3; O2SAT 92–98; BMI 34.1; BMI 35.0
--- NOTE | 2022-07-02 05:23 | PC.NURSE ---
NO ACUTE CHANGES SINCE PREVIOUS ASSESSMENT. PT HAS RESTED INTERMITTENTLY THIS SHIFT. LUNG SOUNDS ARE CLEAR. REMAINS ON ROOM AIR. PT HAS AMBULATED TO THE BATHROOM WITH STANDBY ASSIST. PT HAS C/O ABD PAIN X1 THIS SHIFT. MEDICATED PER MAR FOR PAIN. VSS. NO C/O N/V/D. ABD REMAINS SOFT AND TENDER.
--- NOTE | 2022-07-02 07:22 | HMH.PHAINT1 ---
Pharmacy Intervention Comments: Home medication reconciliation completed using outpatient pharmacy medication fill history.
[2022-07-02 07:23] LABS: Chloride 98 mmol/L (98-107)
[2022-07-02 07:24] LABS: Sodium 137 mmol/L (136-145)
[2022-07-02 07:26] LABS: Blood Urea Nitrogen 19 mg/dl (7-17); Creatinine Clearance Estimated 58 mL/min (50-200); Estimated Glomerular Filt Rate 44 ml/min (>60); GFR (African American) 54 ML/MIN (>60)
[2022-07-02 07:27] LABS: Calcium 8.8 mg/dl (8.4-10.2); Carbon Dioxide 30 mmol/L (22.0-30.0); Glucose 106 mg/dl (74-100)
[2022-07-02 07:34] LABS: Basophils # 0.1 K/mm3 (0-0.2); Basophils % 0.7 % (0.1-2.0); Eosinophils # 0.2 K/mm3 (0.0-0.4); Eosinophils % 1.9 % (0.1-12.0); Hematocrit 37.7 % (37.0-47.0); Lymphocytes # 1.3 K/mm3 (0.7-4.5); Lymphocytes % 13.1 % (10-50); Mean Corpuscular HGB Conc 32.7 g/dL (31.8-35.4); Mean Corpuscular Hemoglobin 30.1 pg (27.0-31.2); Mean Corpuscular Volume 92.1 fl (81-99); Mean Platelet Volume 8.3 fl (7.4-10.4); Monocytes # 0.9 K/mm3 (0.1-1.0); Monocytes % 8.6 % (1.7-9.3); Neutrophils # 7.7 K/mm3 (1.8-7.8); Neutrophils % 75.7 % (37.0-80.0); Platelet Count 363 K/mm3 (142-424); White Blood Count 10.1 K/mm3 (4.8-10.8)
[2022-07-02 07:38] LABS: Hemoglobin 12.3 g/dL (12.2-16.2)
--- NOTE | 2022-07-02 07:41 | PC.NURSE ---
Spoke with sanju ni about pt critical K value
--- NOTE | 2022-07-02 07:44 | PC.NURSE ---
Spoke with Dr. Valverde about pts K level
--- NOTE | 2022-07-02 08:10 | EXP.SURG.PN ---
Subjective Patient reports: no new complaints Narrative: She states that she is pretty sore from where the ultrasound was done . Exam Data for Last 24 hours Vital signs and Labs for Last 24 Hours: Temp Pulse Resp BP Pulse Ox 98.9 F 91 H 16 136/57 L 98 07/02/22 04:00 07/02/22 04:00 07/02/22 04:00 07/02/22 04:00 07/02/22 04:00 Laboratory Results - last 24 hr 07/01/22 12:30: WBC 13.4 H, RBC 4.60, Hgb 13.8, Hct 42.9, MCV 93.2, MCH 30.1, MCHC 32.3, RDW 14.0, Plt Count 405, MPV 8.5, Neut % (Auto) 82.3 H, Lymph % (Auto) 9.4 L, [place] % (Auto) 6.1, Eos % (Auto) 1.6, Baso % (Auto) 0.7, Neut # (Auto) 11.1 H, Lymph # (Auto) 1.3, [place] # (Auto) 0.8, Eos # (Auto) 0.2, Baso # (Auto) 0.1 07/01/22 12:30: Sodium 137, Potassium 3.5, Chloride 94 L, Carbon Dioxide 30, Anion Gap 16.5 H, BUN 21 H, Creatinine 1.10 H, Estimated Creat Clear 65, Estimated GFR 49 L, Est GFR ( Amer) 59, Glucose 118 H, Calcium 9.4, Total Bilirubin 0.7, AST 45 H, ALT 37, Alkaline Phosphatase 144 H, Total Protein 7.9, Albumin 4.3, Globulin 3.6 H, Albumin/Globulin Ratio 1.2 07/01/22 12:30: Lipase 25 07/01/22 15:47: SARS-CoV-2 (PCR) Detected A, Influenza A Untype (PCR) Not detected, Influenza Type B (PCR) Not detected 07/02/22 06:53: WBC 10.1, RBC 4.10 L, Hgb 12.3 D, Hct 37.7, MCV 92.1, MCH 30.1, MCHC 32.7, RDW 14.0, Plt Count 363, MPV 8.3, Neut % (Auto) 75.7, Lymph % (Auto) 13.1, [place] % (Auto) 8.6, Eos % (Auto) 1.9, Baso % (Auto) 0.7, Neut # (Auto) 7.7, Lymph # (Auto) 1.3, [place] # (Auto) 0.9, Eos # (Auto) 0.2, Baso # (Auto) 0.1 07/02/22 06:53: Sodium 137, Potassium 3.0 L, Chloride 98, Carbon Dioxide 30, Anion Gap 12.0, BUN 19 H, Creatinine 1.20 H, Estimated Creat Clear 58, Estimated GFR 44 L, Est GFR ( Amer) 54 L, Glucose 106 H, Calcium 8.8 07/02/22 06:53: Blood Type A Positive, Antibody Screen Negative I & O for Last 24 hours: Intake & Output 06/29/22 06/30/22 07/01/22 07/02/22 11:59 11:59 11:59 11:59 Intake Total 709 / 709 Output Total 200 / 200 Balance 509 / 509 Weight 185 lb 6.999 oz Constitutional Constitutional: no acute distress *Routine Respiratory Exam Respiratory: Absent respiratory distress *Routine Cardiovascular Exam Cardiovascular: Absent tachycardia *Routine Abdominal Exam Abdominal: Present obese Progress Note: A&P Assessment and plan (1) Acute acalculous cholecystitis: Status: Acute Assessment and plan: Continue Zosyn Diet as per primary service today. NPO after midnight. Laparoscopic cholecystectomy tentatively scheduled for tomorrow (Dr. Carlos)
--- NOTE | 2022-07-02 09:02 | EXP.HP ---
History of Present Illness *Admission Date: 07/01/22 *Reason for visit:: Abdominal pain *History of present illness: Patient is a 72-year-old female who is very well-known to me as she has a history of left-sided breast cancer treated with breast conservation therapy. She had actually recently been seen in the office for a routine follow-up on 06/24/2010. Interestingly, when the patient had been seen several weeks ago in the office she was having some respiratory issues and I had a concern for possible COVID and I therefore had her undergo testing for this on 05/29/2022 which was negative. However, she had tested positive a couple days later. She presents to the emergency department in the afternoon today on 07/01/2022 with complaints of right-sided abdominal pain from her ribs to the pelvis for the past 3 days. It has been worse postprandially. She has been moving her bowels without difficulty. She presented to the emergency department today because that she has had poor nutritional intake due to postprandial nausea. Work-up in the emergency department revealed findings of a leukocytosis of 13,400 with 82% neutrophils. Liver function tests reveal AST of 45, ALT normal, bilirubin normal, alkaline phosphatase 144. She underwent CT scan which reveals findings of cholelithiasis with gallbladder wall thickening and pericholecystic fat stranding most worrisome for acute cholecystitis. Common bile duct stone cannot be excluded. If indicated, MRCP could further evaluate. The above as noted by Dr. Carlos on admission. In the emergency room with evaluation white blood cell count was 13,400. Hemoglobin was 13.8 hematocrit of 42.9. She did test positive for COVID. AST was elevated at 45 and alkaline phosphatase elevated at 144. BUN was 21 and creatinine was 1.1 in emergency room she was started on piperacillin IV and IV fluids lactated Ringer's at 75 an hour. This a.m. patient states her right upper quadrant of the abdomen is sore. She denies nausea. She has not vomited. Bowels have not moved since 06/29/2022. She is voiding QS. She has been seen by Dr. Fagan, surgeon, who states she can have a low-fat diet which she would request. [facility] Medical History (Updated 07/02/22 @ 09:38 by Simi Anton APRN) Breast cancer, right Depression Fibromyalgia History of anemia History of COVID-19 History of gastroesophageal reflux (GERD) Hypertension Migraine Osteoarthritis Pneumonia Surgical History (Updated 07/01/22 @ 21:25 by Aziza De Leon, RN) History of colonoscopy History of lumpectomy Tubal ligation status Family History (Updated 07/01/22 @ 21:25 by Aziza De Leon, RN) Family history of TIAs Family history of GERD Thyroid cancer Family history of stroke Family history of cancer Family history of hypertension Family history of hypothyroidism Family history of diabetes mellitus type II Family history of COPD (chronic obstructive pulmonary disease) Family history of migraine headaches Lung cancer Family history of hyperlipidemia Social History (Updated 07/01/22 @ 21:25 by Aziza De Leon, RN) Smoking Status: Current every day smoker tobacco type: cigarettes packs per day: 1 second hand exposure: No alcohol intake: never substance use type: denies use current occupational status: retired Travel in the last 8 weeks: None household members: significant other housing: house current occupational exposures/hazards: No caffeine: Yes Review of Systems Constitutional Constitutional: Reports as per HPI Eyes Eyes: Denies change in vision ENT Ears, Nose, Mouth, and Throat: Reports dizziness, Reports dry mouth, Denies otalgia and Denies sore throat *Cardiovascular Cardiovascular: Denies chest pain, Reports dyspnea (At times) and Denies leg edema *Respiratory Respiratory: Reports cough (Has had a cough since completing her chemotherapy.), Reports dyspnea (At times) and Denies hemoptysis *Gastrointestinal Ga
--- NOTE | 2022-07-02 09:03 | XR_ITS ---
PROCEDURE INFORMATION: Exam: XR Chest Exam date and time: 07/02/2022 9:25 AM Age: 72 years old Clinical indication: Shortness of breath; Additional info: Preop. . Covid, SOB TECHNIQUE: Imaging protocol: Radiologic exam of the chest. Views: 1 view. COMPARISON: CR XR CHEST 2V 05/29/2022 11:13 AM FINDINGS: Tubes, catheters and devices: Surgical clips project over the left axillary region. Lungs: Unremarkable. No consolidation. Pleural spaces: Unremarkable. No pleural effusion. No pneumothorax. Heart/Mediastinum: Unremarkable. No cardiomegaly. Bones/joints: Unremarkable. IMPRESSION: No acute cardiopulmonary abnormality.
--- NOTE | 2022-07-02 09:10 | PC.NURSE ---
Spoke with Cindy roy about sputum culture needed.
--- NOTE | 2022-07-02 09:22 | ECG_ITS ---
APPROVED REPORT Exam: Resting ECG HR:91 bpm ECG Measurements Heart Rate 91 AXES OK 161 P 72 QRSd 92 QRS 45 QT 366 T 55 QTc 414 Conclusion SINUS RHYTHM LOW QRS VOLTAGE IN PRECORDIAL LEADS [QRS DEFLECTION < 1.0 mV IN CHEST LEADS] NONSPECIFIC T-WAVE ABNORMALITY BORDERLINE ECG UNCONFIRMED REPORT Electronically signed by : David De Paz MD 07/02/2022 21:56:51
--- NOTE | 2022-07-02 20:02 | PC.NURSE ---
Pt is A/ox4. She has ambulated to the bathroom a few times. She had a BM today during my shift. She has been complaining of abdominal pain. She has tolerated her diet well today. She is expected to have surgery tomorrow, but no order for consent is in so no consent has been signed at this time. Pt is NPO @ midnight. I have an order for lovenox that was given verbally by Dr. Valverde. It is not to be given until after surgery tomorrow for her VTE. She is home meds in the omni. There is a sign on the door, and also pink paper is attached to report sheet. Spoke with Yadira BASS, and zhane. They stated permission for to be in the room. Only visitor that is aloud. They have to wear PPE.
--- NOTE | 2022-07-02 23:43 | PC.NURSE ---
PT IV IN HER RIGHT FOREARM WAS REMOVED AND A NEW 20G IV WAS PLACED FURTHER UP IN THE RIGHT FOREARM.
[2022-07-03] VITALS (25 sets, daily range): BP systolic 136–192; BP diastolic 54–78; PULSE 81–105; RESP 14–22; TEMP 36.4–43; O2SAT 91–99; BMI 35.0
--- NOTE | 2022-07-03 04:51 | PC.NURSE ---
NO ACUTE CHANGES SINCE PREVIOUS ASSESSMENT. PT HAS RESTED INTERMITTENTLY THIS SHIFT. LUNG SOUNDS HAVE INSIRATORY AND EXPIRATORY RONCHI. TOLERATING 2L NASAL CANNULA WELL. AMBULATING INDEPENDENTLY TO THE BATHROOM. VSS. BP IS SLIGHTLY ELEVATED THIS AM. NO C/O OF ABD PAIN THIS SHIFT.
--- NOTE | 2022-07-03 07:15 | EXP.SURG.PN ---
Subjective Narrative: Still having some abdominal pain with slight improvement. Exam Data for Last 24 hours Vital signs and Labs for Last 24 Hours: Temp Pulse Resp BP Pulse Ox 99.1 F 100 H 20 174/66 H 99 07/03/22 04:00 07/03/22 04:00 07/03/22 04:00 07/03/22 04:00 07/03/22 04:00 Laboratory Results - last 24 hr 07/02/22 06:53: WBC 10.1, RBC 4.10 L, Hgb 12.3 D, Hct 37.7, MCV 92.1, MCH 30.1, MCHC 32.7, RDW 14.0, Plt Count 363, MPV 8.3, Neut % (Auto) 75.7, Lymph % (Auto) 13.1, [place] % (Auto) 8.6, Eos % (Auto) 1.9, Baso % (Auto) 0.7, Neut # (Auto) 7.7, Lymph # (Auto) 1.3, [place] # (Auto) 0.9, Eos # (Auto) 0.2, Baso # (Auto) 0.1 07/02/22 06:53: Sodium 137, Potassium 3.0 L, Chloride 98, Carbon Dioxide 30, Anion Gap 12.0, BUN 19 H, Creatinine 1.20 H, Estimated Creat Clear 58, Estimated GFR 44 L, Est GFR ( Amer) 54 L, Glucose 106 H, Calcium 8.8 07/02/22 06:53: Blood Type A Positive, Antibody Screen Negative I & O for Last 24 hours: Intake & Output 06/30/22 07/01/22 07/02/22 07/03/22 11:59 11:59 11:59 11:59 Intake Total 709 / 709 2563 / 2563 Output Total 200 / 200 300 / 300 Balance 509 / 509 2263 / 2263 Weight 185 lb 6.999 oz 190 lb 6 oz Microbiology Reports for the Last 24 Hours: Microbiology 07/02/22 21:23 Sputum - Expectorated Sputum Gram Stain - Final *Routine Abdominal Exam Abdominal: Present tenderness Progress Note: A&P Assessment and plan (1) Acute acalculous cholecystitis: Status: Acute Assessment and plan: Cholecystectomy today (2) Tobacco abuse counseling: Status: Acute (3) History of gastroesophageal reflux (GERD): Status: Acute (4) Depression: Status: Acute (5) Osteoarthritis: Status: Acute (6) Hypothyroidism: Status: Acute (7) HTN (hypertension): Status: Acute (8) Hypokalemia: Status: Acute
[2022-07-03 07:21] LABS: Basophils # 0.1 K/mm3 (0-0.2); Basophils % 0.9 % (0.1-2.0); Eosinophils # 0.2 K/mm3 (0.0-0.4); Eosinophils % 2.8 % (0.1-12.0); Hemoglobin 11.7 g/dL (12.2-16.2); Lymphocytes # 1.6 K/mm3 (0.7-4.5); Lymphocytes % 18.2 % (10-50); Mean Corpuscular HGB Conc 33.5 g/dL (31.8-35.4); Mean Corpuscular Hemoglobin 30.7 pg (27.0-31.2); Mean Corpuscular Volume 91.7 fl (81-99); Monocytes # 0.7 K/mm3 (0.1-1.0); Monocytes % 7.6 % (1.7-9.3); Neutrophils # 6.2 K/mm3 (1.8-7.8); Neutrophils % 70.6 % (37.0-80.0); Platelet Count 332 K/mm3 (142-424); Red Blood Count 3.82 M/mm3 (4.20-5.40); Red Cell Distribution Width 14.1 % (11.5-17.5); White Blood Count 8.7 K/mm3 (4.8-10.8)
[2022-07-03 07:31] LABS: Chloride 105 mmol/L (98-107)
[2022-07-03 07:32] LABS: Potassium 4.3 mmoL/L (3.5-5.1); Sodium 140 mmol/L (136-145)
[2022-07-03 07:33] LABS: Blood Urea Nitrogen 13 mg/dl (7-17); Creatinine Clearance Estimated 59 mL/min (50-200); Estimated Glomerular Filt Rate 44 ml/min (>60); GFR (African American) 54 ML/MIN (>60)
[2022-07-03 07:34] LABS: Anion Gap 11.3 mEq/L (5-15); Carbon Dioxide 28 mmol/L (22.0-30.0)
[2022-07-03 07:35] LABS: Calcium 8.5 mg/dl (8.4-10.2); Glucose 116 mg/dl (74-100)
--- NOTE | 2022-07-03 08:23 | EXP.ACUTE.PN ---
Subjective *Date: 07/03/22 *Time: 08:46 Interval history: Patient states she is feeling a little bit better this morning. Her abdominal pain has improved but is still present. She does have shortness of breath when she gets up to go to the bathroom or move around the room. She denies any other pain and has been n.p.o. this morning for possible surgery. Medical Exam Vital signs and Labs for Last 24 Hours: Vital Signs Temp Pulse Pulse Resp BP Pulse Ox 07/03/22 04:00 99.1 F 100 H 20 174/66 H 99 07/03/22 04:00 100 H 07/03/22 00:00 100 H 07/03/22 00:00 98.4 F 94 H 20 136/69 91 L 07/02/22 20:00 100 H 07/02/22 20:00 98.2 F 99 H 20 155/55 H 92 L 07/02/22 16:00 90 07/02/22 12:00 76 07/02/22 15:46 98.3 F 89 17 144/57 H 92 L 07/02/22 11:29 97.6 F 79 17 113/59 L 95 Intake and Output 07/02/22 07/03/22 07/03/22 19:59 03:59 11:59 Intake Total 540 / 2563 2022 256 Output Total 0 / 300 300 / 300 0 / 300 Balance 540 / 2263 -300 / 2263 2022 Intake: Intake, Oral Amount 540 / 540 Intake, Total IV Amount 2022 Ringers Solution,Lactated 1,000 2022 ml @ 75 mls/hr IV .[id number] [facility] Rx#:[id number] Output: Output, Urine Amount 0 / 300 300 / 300 0 / 300 Other: Number of Unmeasured Voids 1 2 1 Weight 190 lb 6 oz Patient Weight 07/03/22 11:59 Weight 190 lb 6 oz Laboratory Results - last 24 hr 07/03/22 06:43: WBC 8.7, RBC 3.82 L, Hgb 11.7 L, Hct 35.0 L, MCV 91.7, MCH 30.7, MCHC 33.5, RDW 14.1, Plt Count 332, MPV 8.0, Neut % (Auto) 70.6, Lymph % (Auto) 18.2, [place] % (Auto) 7.6, Eos % (Auto) 2.8, Baso % (Auto) 0.9, Neut # (Auto) 6.2, Lymph # (Auto) 1.6, [place] # (Auto) 0.7, Eos # (Auto) 0.2, Baso # (Auto) 0.1 07/03/22 06:43: Sodium 140, Potassium 4.3 D, Chloride 105, Carbon Dioxide 28, Anion Gap 11.3, BUN 13 D, Creatinine 1.20 H, Estimated Creat Clear 59, Estimated GFR 44 L, Est GFR ( Amer) 54 L, Glucose 116 H, Calcium 8.5 I & O for Labs for Last 24 Hours: Intake & Output 06/30/22 07/01/22 07/02/22 07/03/22 11:59 11:59 11:59 11:59 Intake Total 709 / 709 2563 / 2563 Output Total 200 / 200 300 / 300 Balance 509 / 509 2263 / 2263 Weight 185 lb 6.999 oz 190 lb 6 oz Microbiology Reports for the Last 24 Hours: Microbiology 07/02/22 21:23 Sputum - Expectorated Sputum Gram Stain - Final Constitutional: Present no acute distress Respiratory: Present decreased breath sounds Cardiac: Present Reg Rate and Rhythm GI: Present soft, tenderness (RUQ) and normal bowel sounds; Absent distention Extremities: Absent edema, clubbing or cyanosis Skin: Present intact Neuro: Present alert and awake Assessment and Plan *Assessment and plan (1) Acute acalculous cholecystitis: Status: Acute Category: Medical Code(s): K81.0 - Acute cholecystitis (2) Tobacco abuse counseling: Status: Acute Category: Medical Code(s): Z71.6 - Tobacco abuse counseling (3) History of gastroesophageal reflux (GERD): Status: Acute Category: Medical Code(s): Z87.19 - Personal history of other diseases of the digestive system (4) Depression: Status: Acute Category: Medical Code(s): F32.A - Depression, unspecified (5) Osteoarthritis: Status: Acute Category: Medical Code(s): M19.90 - Unspecified osteoarthritis, unspecified site (6) Hypothyroidism: Status: Acute Category: Medical Code(s): E03.9 - Hypothyroidism, unspecified (7) HTN (hypertension): Status: Acute Category: Medical Code(s): I10 - Essential (primary) hypertension (8) Hypokalemia: Status: Acute Category: Medical Code(s): E87.6 - Hypokalemia Plan Patient is scheduled for cholecystectomy this morning. Renal function is stable. Dr. Valverde entry - saw patient, agree with above note. Pt to OR tod
--- NOTE | 2022-07-03 08:31 | EXP.ANES.CKL ---
PFSH PFS Medical History (Updated 07/02/22 @ 09:38 by Simi Anton APRN) Breast cancer, right Depression Fibromyalgia History of anemia History of COVID-19 History of gastroesophageal reflux (GERD) Hypertension Migraine Osteoarthritis Pneumonia Surgical History (Updated 07/01/22 @ 21:25 by Aziza De Leon, RN) History of colonoscopy History of lumpectomy Tubal ligation status Family History (Updated 07/01/22 @ 21:25 by Aziza De Leon, RN) Other Family history of COPD (chronic obstructive pulmonary disease) Family history of GERD Family history of TIAs Family history of cancer Family history of diabetes mellitus type II Family history of hyperlipidemia Family history of hypertension Family history of hypothyroidism Family history of migraine headaches Family history of stroke Lung cancer Thyroid cancer Social History (Updated 07/01/22 @ 21:25 by Aziza De Leon, RN) Smoking Status: Current every day smoker tobacco type: cigarettes packs per day: 1 second hand exposure: No alcohol intake: never substance use type: denies use current occupational status: retired Travel in the last 8 weeks: None household members: significant other housing: house current occupational exposures/hazards: No caffeine: Yes [facility] Anesthesia Checklist Patient Identification Patient Identification: Arm Band Structural Data Admitted From: Inpatient Planned Operative Procedure/s: Laparoscopic Cholecystectomy Consent for Planned Operative Procedure(s) Verified: Yes Verified Documents: Surgical Consent and History and Physical NPO Status Verified Time NPO: 00:00 Additional verifications Anesthesia Reactions: No Hx Blood Transfusions: No Blood Transfusion Reaction: Yes Airway Assessment C-Spine Mobility Assessed: Yes TMJ Mobility Assessed: Yes Dentition: Good Dentition Neurological Assessment Level of Consciousness: Awake and Alert Anesthesia Plan Anesthesia Risk discussed: Yes Anesthesia Plan: Verified ASA Class: III Anesthesia Type: General
--- NOTE | 2022-07-03 11:34 | EXP.OP.NOTE ---
Date of procedure: 07/03/22 Pre-op Diagnosis:: Acute calculus cholecystitis Post-op Diagnosis:: Same Procedure performed:: Laparoscopic cholecystectomy Surgeon:: Jose Raul Carlos MD WATCHMAKING TEACHER:: Artie Stuart Anesthesia: GOSIA Estimated blood loss (mL): 30 Clinical Note:: Patient is a 72-year-old female who is very well-known to me due to care for left-sided breast cancer. She had presented to the emergency department on 07/01/2022 with complaints of right-sided abdominal pain for approximately 3 or 4 days. She had some worsening symptoms postprandially with exacerbation. Evaluation in the emergency department revealed mild leukocytosis of 13,400 with 82% neutrophils. She had CT scan which revealed findings of cholelithiasis with gallbladder wall thickening and pericholecystic fat stranding most worrisome for acute cholecystitis. Surgical consultation was obtained. Patient had findings of clinical acute cholecystitis. She was admitted for inpatient management. She was given intravenous antibiotics. Gallbladder ultrasound was performed as an inpatient which revealed the findings of cholelithiasis with multiple gallstones and sludge with gallbladder wall thickening and pericholecystic fluid consistent with acute calculus cholecystitis. Operative findings:: Patient had a severely inflamed tense very thickened gallbladder with omental adhesions and duodenum adherent to the neck of the gallbladder. Gallbladder was somewhat hydropic. There were multiple moderate sized gallstones. There was intense inflammatory response around the neck and portahepatis with what appeared to be a very shortened cystic duct. Operative note:: Consent was obtained and patient was taken to the operating room. She was given preoperative intravenous antibiotics. In the operating room she was placed in a supine position. General anesthesia was induced via endotracheal tube. Abdomen was prepped and draped in the standard surgical fashion. Subumbilical skin incision was made and while performing abdominal wall lift Veress needle was inserted. CO2 pneumoperitoneum was achieved to 15 mmHg. 11 mm optical trocar was inserted at the umbilicus. Intraperitoneal contents were visualized. She was positioned in reverse Trendelenburg left side down. A couple of 5 mm trochars were inserted in the right upper abdomen. 10 mm trocar was inserted in the epigastrium. Gallbladder was somewhat more lateral than traditionally anticipated. Gallbladder was identified and completely obscured with omental adhesions. These were taken down allowing visualization of the fundus of the gallbladder which was quite thickened and tense. The gallbladder was then aspirated with a laparoscopic needle aspirator to allow for grasping of the gallbladder. It was retracted anteriorly. Additional dissection was carried out taking down adhesions. There was intense inflammatory response around the neck of the gallbladder and nayana hepatis. Very prolonged dissection was carried out ultimately identifying the cystic duct. This appeared to be quite foreshortened with very close common bile duct. It was ultimately isolated and dissected free enough to allow for placement of hemoclips. Of note there was a large stone impacted in the neck of the gallbladder. The cystic duct was isolated, multiply clipped, and sharply divided. After division 0 PDS Endoloop was placed on the cystic duct remnant. Further dissection was carried out identifying what appeared to be the cystic artery. This was isolated. To ensure that this was the cystic artery was clipped proximally and sharply divided. There was backbleeding. It was then clipped with hemoclips. Gallbladder was quite inflamed and was unable to be dissected free from the liver using harmonic valentina and therefore it was dissected free with the laparoscopic electrocautery. Ultimately the gallbladder was placed within an Endo Catch retrieval device and removed the peritoneal
--- NOTE | 2022-07-03 11:43 | P.PNANES_ITS ---
[facility] [place] Anesthesia Record Part I Anesthesia Record I Intake, IV Amount: 800 Estimated blood loss (mL): 20 Urine output (mL): 0 Blood Pressure: 147/73 SaO2: 96 Pulse Rate: 81 Respiratory Rate: 14 Temperature: 98.1 F Patient is:: Awake Stable to PACU at:: 11:40
--- NOTE | 2022-07-03 12:44 | SUR.PHASEI ---
1223 called and gave detailed report to Miguel Chacko RN [id number] transported via bed to med/surg room. vital signs stable. states she has some gas pain and rates it about 5. left in stable condition with Miguel Chacko RN at bedside.
--- NOTE | 2022-07-03 17:49 | PC.NURSE ---
PT IS RESTING IN BED. TOLERATING CLEAR LIQUIDS WELL. DRESSINGS TO THE ABDOMEN C/D/I. ABDOMEN SOFT/TENDER WITH HYPOACTIVE BOWEL SOUNDS. LUNG SOUND CLEAR. PT HAS BEEN AMBULATING TO THE BATHROOM. VSS. WILL CONTINUE TO MONITOR.
--- NOTE | 2022-07-03 23:22 | PC.NURSE ---
2100 [address] Round Patient awake and walking to bathroom. Patient's trash emptied . Patient voiced no other needs
[2022-07-04 04:00] VITALS: BP 157/67; PULSE 110; RESP 18; TEMP 36.6; O2SAT 96
[2022-07-04 04:51] VITALS: BMI 34.4
--- NOTE | 2022-07-04 05:18 | PC.NURSE ---
pt has c/o mild abdominal and leg pain t/o the night and was medicated prn per NOV. incision dressings to abd are c/d/i. abd soft. bs hypoactive. pt has ambulated to the bathroom this shift with a standby assist. call light in reach.
--- NOTE | 2022-07-04 05:47 | PC.NURSE ---
0600 [address] Round Trash and ice water refilled
--- NOTE | 2022-07-04 06:56 | PC.NURSE ---
20G IV in RFA d/c and new 20G IV started in RFA
--- NOTE | 2022-07-04 07:09 | EXP.SURG.PN ---
Subjective Narrative: Patient states that she feels pretty good. No significant complaints. Minor surgical soreness. Exam Data for Last 24 hours Vital signs and Labs for Last 24 Hours: Temp Pulse Resp BP Pulse Ox 97.9 F 110 H 18 157/67 H 96 07/04/22 04:00 07/04/22 04:00 07/04/22 04:00 07/04/22 04:00 07/04/22 04:00 Laboratory Results - last 24 hr 07/03/22 06:43: WBC 8.7, RBC 3.82 L, Hgb 11.7 L, Hct 35.0 L, MCV 91.7, MCH 30.7, MCHC 33.5, RDW 14.1, Plt Count 332, MPV 8.0, Neut % (Auto) 70.6, Lymph % (Auto) 18.2, [place] % (Auto) 7.6, Eos % (Auto) 2.8, Baso % (Auto) 0.9, Neut # (Auto) 6.2, Lymph # (Auto) 1.6, [place] # (Auto) 0.7, Eos # (Auto) 0.2, Baso # (Auto) 0.1 07/03/22 06:43: Sodium 140, Potassium 4.3 D, Chloride 105, Carbon Dioxide 28, Anion Gap 11.3, BUN 13 D, Creatinine 1.20 H, Estimated Creat Clear 59, Estimated GFR 44 L, Est GFR ( Amer) 54 L, Glucose 116 H, Calcium 8.5 I & O for Last 24 hours: Intake & Output 07/01/22 07/02/22 07/03/22 07/04/22 11:59 11:59 11:59 11:59 Intake Total 709 / 709 3363 / 3363 600 / 600 Output Total 200 / 200 300 / 300 0 / 0 Balance 509 / 509 3063 / 3063 600 / 600 Weight 190 lb 5.906 oz 190 lb 6 oz 187 lb 3.2 oz *Routine Abdominal Exam Abdominal: Present soft Progress Note: A&P Assessment and plan (1) Acute acalculous cholecystitis: Status: Acute Assessment and plan: Labs pending. Probable discharge. (2) Tobacco abuse counseling: Status: Acute (3) History of gastroesophageal reflux (GERD): Status: Acute (4) Depression: Status: Acute (5) Osteoarthritis: Status: Acute (6) Hypothyroidism: Status: Acute (7) HTN (hypertension): Status: Acute (8) Hypokalemia: Status: Acute
[2022-07-04 07:35] LABS: Basophils # 0.2 K/mm3 (0-0.2); Basophils % 1.2 % (0.1-2.0); Eosinophils % 0.3 % (0.1-12.0); Hematocrit 40.3 % (37.0-47.0); Hemoglobin 13.4 g/dL (12.2-16.2); Lymphocytes # 1.2 K/mm3 (0.7-4.5); Lymphocytes % 8.9 % (10-50); Mean Corpuscular HGB Conc 33.2 g/dL (31.8-35.4); Mean Corpuscular Hemoglobin 30.3 pg (27.0-31.2); Mean Corpuscular Volume 91.5 fl (81-99); Mean Platelet Volume 7.7 fl (7.4-10.4); Monocytes # 0.8 K/mm3 (0.1-1.0); Monocytes % 5.7 % (1.7-9.3); Neutrophils # 11.4 K/mm3 (1.8-7.8); Neutrophils % 83.9 % (37.0-80.0); Platelet Count 324 K/mm3 (142-424); Red Blood Count 4.41 M/mm3 (4.20-5.40); Red Cell Distribution Width 14.1 % (11.5-17.5); White Blood Count 13.5 K/mm3 (4.8-10.8)
[2022-07-04 08:00] VITALS: BP 194/73; PULSE 82; RESP 20; TEMP 36.6; O2SAT 94
--- NOTE | 2022-07-04 08:28 | EXP.ACUTE.PN ---
Subjective *Date: 07/04/22 *Time: 08:58 Interval history: Patient states she is feeling well this morning. Minimal abdominal pain after surgery. She is tolerating her diet. She has not been up to the bathroom because she feels a little dizzy from the anesthesia and pain medicine. Medical Exam Vital signs and Labs for Last 24 Hours: Vital Signs Temp Pulse Pulse Resp BP BP Pulse Ox 07/03/22 19:30 98.0 F 94 H 20 176/70 H 95 07/04/22 04:00 97.9 F 110 H 18 157/67 H 96 07/03/22 23:42 98.0 F 105 H 22 176/76 H 95 07/03/22 20:00 98.0 F 94 H 20 176/70 H 95 07/03/22 18:30 91 H 20 155/66 H 97 07/03/22 17:30 90 18 161/64 H 95 07/03/22 16:30 86 20 159/60 H 96 07/03/22 15:30 91 H 20 150/63 H 97 07/03/22 12:45 87 18 153/59 H 97 07/03/22 15:00 83 16 153/71 H 96 07/03/22 14:30 86 18 147/67 H 97 07/03/22 14:00 89 20 136/60 97 07/03/22 13:30 86 18 168/62 H 98 07/03/22 13:15 86 20 150/63 H 97 07/03/22 13:00 98.0 F 84 16 143/54 H 97 07/03/22 12:45 97.9 F 87 18 153/59 H 97 07/03/22 12:28 98.1 F 84 18 172/66 H 93 L 07/03/22 12:20 98.1 F 84 16 166/69 H 93 L 07/03/22 12:10 98.1 F 84 18 153/68 H 94 L 07/03/22 12:00 98.1 F 84 18 165/64 H 95 07/03/22 11:50 98.1 F 84 16 173/66 H 96 07/03/22 11:40 98.1 F 81 14 147/73 H 96 07/03/22 11:44 98.1 F 81 14 147/73 H Intake and Output 07/03/22 07/04/22 07/04/22 19:59 03:59 11:59 Intake Total 600 / 600 Output Total 0 / 0 0 / 0 Balance 600 / 600 0 / 600 0 / 600 Intake: Intake, Oral Amount 600 / 600 Output: Output, Urine Amount 0 / 0 0 / 0 Other: Number of Unmeasured Voids 1 1 Weight 187 lb 3.2 oz Patient Weight 07/04/22 11:59 Weight 187 lb 3.2 oz Laboratory Results - last 24 hr 07/04/22 07:15: WBC 13.5 H D, RBC 4.41, Hgb 13.4, Hct 40.3, MCV 91.5, MCH 30.3, MCHC 33.2, RDW 14.1, Plt Count 324, MPV 7.7, Neut % (Auto) 83.9 H, Lymph % (Auto) 8.9 L, [place] % (Auto) 5.7, Eos % (Auto) 0.3, Baso % (Auto) 1.2, Neut # (Auto) 11.4 H, Lymph # (Auto) 1.2, [place] # (Auto) 0.8, Eos # (Auto) 0.0, Baso # (Auto) 0.2 I & O for Labs for Last 24 Hours: Intake & Output 07/01/22 07/02/22 07/03/22 07/04/22 11:59 11:59 11:59 11:59 Intake Total 709 / 709 3363 / 3363 600 / 600 Output Total 200 / 200 300 / 300 0 / 0 Balance 509 / 509 3063 / 3063 600 / 600 Weight 190 lb 5.906 oz 190 lb 6 oz 187 lb 3.2 oz Microbiology Reports for the Last 24 Hours: Microbiology 07/02/22 21:23 Sputum - Expectorated Sputum Gram Stain - Final 07/02/22 21:23 Sputum - Expectorated Sputum Sputum Culture - Preliminary Constitutional: Present no acute distress Respiratory: Present CTA bilaterally Cardiac: Present Reg Rate and Rhythm GI: Present soft, tenderness (around surgical incision sites) and normal bowel sounds; Absent distention Extremities: Absent edema, clubbing or cyanosis Skin: Present intact Neuro: Present alert and awake Assessment and Plan *Assessment and plan (1) Acute acalculous cholecystitis: Status: Acute Category: Medical Code(s): K81.0 - Acute cholecystitis (2) Tobacco abuse counseling: Status: Acute Category: Medical Code(s): Z71.6 - Tobacco abuse counseling (3) History of gastroesophageal reflux (GERD): Status: Acute Category: Medical Code(s): Z87.19 - Personal history of other diseases of the digestive system (4) Depression: Status: Acute Category: Medical Code(s): F32.A - Depression, unspecified (5) Osteoarthritis: Status: Acute Category: Medical Code(s): M19.90 - Unspecified osteoarthritis, unspecified site (6) Hypothyroidism: Status: Acute Category: Medical Code(s): E03.9 - Hypothyroidism, unspecified (7) HTN (hypertension): Status: Acute Category: Medical
[2022-07-04 08:30] LABS: Alanine Aminotransferase 66 U/L (12-78); Albumin Level 3.8 g/dl (3.5-5.0); Albumin/Globulin Ratio 1.2 (1.1-1.8); Alkaline Phosphatase 144 U/L (38-126); Anion Gap 20.8 mEq/L (5-15); Aspartate Amino Transferase 95 U/L (14-36); Bilirubin,Total 0.7 mg/dl (0.2-1.3); Blood Urea Nitrogen 12 mg/dl (7-17); Calcium 9.2 mg/dl (8.4-10.2); Carbon Dioxide 22 mmol/L (22.0-30.0); Chloride 105 mmol/L (98-107); Creatinine Clearance Estimated 70 mL/min (50-200); Estimated Glomerular Filt Rate 55 ml/min (>60); GFR (African American) 66 ML/MIN (>60); Globulin 3.1 g/dL (1.3-3.2); Glucose 123 mg/dl (74-100); Potassium 4.8 mmoL/L (3.5-5.1); Sodium 143 mmol/L (136-145); Total Protein,Serum 6.9 g/dl (6.3-8.2)
--- NOTE | 2022-07-04 13:50 | HMH.PHAINT1 ---
Pharmacy Intervention Comments: DISCHARGE MEDICATION COUNSELING PROVIDED. DISCUSSED THERE WERE NO MEDICATION CHANGES. PATIENT STATED SHE THOUGHT SHE MIGHT BE GOING HOME ON A POTASSIUM SUPPLEMENT BUT ALSO THAT THEY MAY HAVE GOTTEN HER POTASSIUM LEVEL BACK UP TO NORMAL. PATIENT VERBALIZED NO QUESTIONS AT THIS TIME.
[2022-07-07 08:44] VITALS: BP 172/66; PULSE 84; TEMP 36.7
--- NOTE | 2022-07-07 08:44 | P.PNANES_ITS ---
[facility] Anesthesia Record Part II Anesthesia Record Part II Discharge Time: 12:28 Destination: Surgical Day Care (OP Surgery) PACU nurse assessment reviewed?: Yes Patient Condition:: Good Anesthesia Complications:: None Swallowing reflex intact?: Yes Cyanosis?: No Blood Pressure: 172/66 Pulse Rate: 84 Temperature: 98.1 F Mental Status: Alert & Oriented Pain level:: 5 Nausea and/or vomitting:: None Intake, IV Amount: 0
--- NOTE | 2022-07-07 12:49 | CARE MANAGER ---
Spoke with patient for post-discharge phone interview, patient states that she is doing well and has no issues. Patient is aware of MD appointments.
--- NOTE | 2022-07-10 21:39 | EXP.DC.SUM ---
General Admission date:: 07/01/22 Discharge date: 07/04/22 HPI HPI HPI: Patient is a 72-year-old female who is very well-known to me as she has a history of left-sided breast cancer treated with breast conservation therapy. She had actually recently been seen in the office for a routine follow-up on 06/24/2010. Interestingly, when the patient had been seen several weeks ago in the office she was having some respiratory issues and I had a concern for possible COVID and I therefore had her undergo testing for this on 05/29/2022 which was negative. However, she had tested positive a couple days later. She presents to the emergency department in the afternoon today on 07/01/2022 with complaints of right-sided abdominal pain from her ribs to the pelvis for the past 3 days. It has been worse postprandially. She has been moving her bowels without difficulty. She presented to the emergency department today because that she has had poor nutritional intake due to postprandial nausea. Work-up in the emergency department revealed findings of a leukocytosis of 13,400 with 82% neutrophils. Liver function tests reveal AST of 45, ALT normal, bilirubin normal, alkaline phosphatase 144. She underwent CT scan which reveals findings of cholelithiasis with gallbladder wall thickening and pericholecystic fat stranding most worrisome for acute cholecystitis. Common bile duct stone cannot be excluded. If indicated, MRCP could further evaluate. The above as noted by Dr. Carlos on admission. In the emergency room with evaluation white blood cell count was 13,400. Hemoglobin was 13.8 hematocrit of 42.9. She did test positive for COVID. AST was elevated at 45 and alkaline phosphatase elevated at 144. BUN was 21 and creatinine was 1.1 in emergency room she was started on piperacillin IV and IV fluids lactated Ringer's at 75 an hour. This a.m. patient states her right upper quadrant of the abdomen is sore. She denies nausea. She has not vomited. Bowels have not moved since 06/29/2022. She is voiding QS. She has been seen by Dr. Fagan, surgeon, who states she can have a low-fat diet which she would request. Hospital Course Hospital Course Hospital Course: The patient was admitted and clinically and radiographically had findings consistent with acute calculus cholecystitis without any definite choledocholithiasis. She did have leukocytosis. Dr. Carlos wanted her admitted with initial management of her acute cholecystitis with IV antibiotics and felt there would be a benefit of obtaining dedicated gallbladder ultrasound. Her ultrasound showed cholelithiasis with cholecystitis. She was started on a low-fat/low-cholesterol diet as well as potassium supplementation. Her abdominal pain improved but was still present. She was scheduled for cholecystectomy. This was performed on 07/03/2022. She tolerated the procedure well. By 07/04/2022, she was feeling well. Her white blood cell count normalized and she was able to tolerate a diet. She was slightly dizzy after receiving anesthesia. It was felt she was stable to discharge home and will follow-up with Dr. Carlos. Exam Data for Last 24 hours Vital signs and Labs for Last 24 Hours: Temp Pulse Resp BP Pulse Ox 98.1 F 84 20 172/66 H 94 L 07/07/22 08:44 07/07/22 08:44 07/04/22 08:00 07/07/22 08:44 07/04/22 08:00 Narrative: Constitutional Constitutional: no acute distress *Routine HEENT Exam Head: Present normocephalic and atraumatic Eye: Present PERRL; Absent conjunctival icterus, scleral injection or conjunctivae pink ENT: Present mucous membranes moist, oropharynx clear and dentition normal *Routine Neck Exam Neck: Absent carotid bruit, lymphadenopathy or thyromegaly *Routine Respiratory Exam Respiratory: Present CTA bilaterally and diminished air movement (Posteriorly) *Routine Cardiovascular Exam Cardiovascular: Present RRR *Routine Abdominal Exam Abdominal: Present soft, normoactive b
== END 2022-07-04 13:59 | disposition home or self-care (01) ==
LOC: ER 16:42 → 2ND 17:59
PROVIDERS: Family Medicine; Surgery; Admitting Provider Internal Medicine Adolescent Medicine; Emergency Provider Student in an Organized Health Care Education/Training Program; PCP Family Medicine; Visit Provider Family Medicine
PROC: 0FT44ZZ Resection of Gallbladder, Percutaneous Endoscopic Approach (ICD-10-PCS; CPT 47562; principal; 2022-07-03 09:00)
DX: K81.0 Acute cholecystitis (principal); F32.A Depression, unspecified; M19.90 Unspecified osteoarthritis, unspecified site; E03.9 Hypothyroidism, unspecified; I10 Essential (primary) hypertension; E87.6 Hypokalemia; F17.210 Nicotine dependence, cigarettes, uncomplicated; Z79.899 Other long term (current) drug therapy; Z20.822 Contact with and (suspected) exposure to COVID-19
CPT/HCPCS: 47562; G0378; 36415; 71045; 74177; 76705; 80048; 80053; 83690; 85025; 86850; 87070; 87205; 88304; 93005; 99285; C9803; J2405; J2543; Q9967; U0003; U0005

== ENCOUNTER → 2022-07-30 14:01 | Outpatient (CLI) | payer MEDICARE, SELFPAY ==
--- NOTE | 2022-07-30 14:01 | MM_ITS ---
PROCEDURE INFORMATION: Exam: MG Left Diagnostic Breast Tomosynthesis Exam date and time: 07/30/2022 1:59 PM Age: 72 years old Clinical indication: Recall on the basis of left sonography 06/16/2022 for mammographic evaluation of left nipple discharge and 0.5 cm irregularly marginated mass at 6 o'clock seen on sonography. TECHNIQUE: Imaging protocol: Left Diagnostic tomosynthesis and 2D mammography including computer-aided detection (CAD) when performed. Unilateral or bilateral exam. COMPARISON: 1. MG MM DIG SCREENING MAMM BI W/CAD 12/30/2021 2:00 PM 2. MG MM DIG SCREENING MAMM BI W/CAD 12/25/2020 10:37 AM 3. MG MM DIG SCREENING MAMM BI W/CAD 11/15/2019 11:21 AM 4. MG DIG MAMM-NEEDLE LOC-LT 02/09/2019 9:11 AM MG DMSB DIG MAMM-SCREEN SALLY 10/27/2014 10:19 AM FINDINGS: MAMMOGRAPHY: Breast composition: There are scattered areas of fibroglandular density. Mass: No suspicious mass. Architectural distortion: Postoperative architectural distortion, with progressive coarse calcification over 0.7 cm at the central aspect of the asymmetry related to the lumpectomy scarring (which appears to correspond to the sonographic findings at 5 o'clock 4 cm from the nipple) with related surgical clips, 5-6 o'clock posterior 3rd - this is visualized on the MLO image with only the edge of the architectural distortion included on the CC image. Calcifications: No suspicious calcifications. Asymmetric density: None. Skin thickening: None. Axillary adenopathy: None. Surgical clips in the left axilla. IMPRESSION: No mammographic correlate for the sonographic irregular marginated hypoechoic solid 0.5 cm mass at 6 o'clock. In addition, with history of left nipple discharge (especially if discharge is spontaneous and clear or bloody) and status post left lumpectomy - further evaluation with breast MRI and/or surgical consultation are suggested, as clinically warranted. Recall for targeted sonography on the left at 6 o'clock may also be helpful given negative mammography. ASSESSMENT: BI-RADS Category 0: Incomplete- Need Additional Imaging Evaluation and/or Prior Mammograms for Comparison
== END ==
PROVIDERS: PCP Family Medicine; Visit Provider Surgery
DX: N64.59 Other signs and symptoms in breast (principal)
CPT/HCPCS: 77061; 77065; G0279

== ENCOUNTER → 2022-08-12 13:55 | Outpatient (CLI) | payer MEDICARE, SELFPAY ==
[2022-08-12 15:27] LABS: Chloride 99 mmol/L (98-107); Sodium 137 mmol/L (136-145)
[2022-08-12 15:28] LABS: Potassium 4.2 mmoL/L (3.5-5.1)
[2022-08-12 15:30] LABS: Alanine Aminotransferase 24 U/L (12-78); Albumin Level 4.1 g/dl (3.5-5.0); Albumin/Globulin Ratio 1.5 (1.1-1.8); Alkaline Phosphatase 142 U/L (38-126); Anion Gap 14.2 mEq/L (5-15); Aspartate Amino Transferase 28 U/L (14-36); Bilirubin,Total 0.2 mg/dl (0.2-1.3); Blood Urea Nitrogen 18 mg/dl (7-17); Carbon Dioxide 28 mmol/L (22.0-30.0); Estimated Glomerular Filt Rate 44 ml/min (>60); GFR (African American) 54 ML/MIN (>60); Globulin 2.7 g/dL (1.3-3.2); Total Protein,Serum 6.8 g/dl (6.3-8.2)
[2022-08-12 15:31] LABS: Calcium 10.2 mg/dl (8.4-10.2); Glucose 103 mg/dl (74-100)
== END ==
PROVIDERS: PCP Family Medicine; Visit Provider Surgery
DX: R11.0 Nausea (principal)
CPT/HCPCS: 36415; 80053

== ENCOUNTER → 2022-08-15 08:53 | Outpatient (CLI) | payer MEDICARE, SELFPAY ==
--- NOTE | 2022-08-15 08:53 | CT_ITS ---
FINAL REPORT TECHNIQUE: After the administration of oral and intravenous contrast, axial images were obtained through the abdomen and pelvis by computed tomography. The study was performed with techniques to keep radiation dose as low as reasonably achievable, (ALARA). Individual dose reduction techniques using automated exposure control or adjustment of mA and/or kV according to the patient's size were employed. CLINICAL HISTORY: post lap rasheeda, pain and nausea since COMPARISON: June 2022 FINDINGS: Abdomen: The lung bases are clear. The liver parenchyma is homogeneous. There has been interval cholecystectomy. There is a rounded cystic collection in the gallbladder fossa measuring 2.6 cm. The spleen, pancreas, adrenals and kidneys appear unremarkable. The aorta is normal in caliber. There is no free fluid or adenopathy. Pelvis: The appendix is normal. The uterus is present and lies eccentric to the left. The urinary bladder is unremarkable. There is no free fluid or adenopathy. IMPRESSION: 2.6 cm rounded collection in the gallbladder fossa may represent postoperative seroma or biloma. Reviewed, Interpreted and Dictated by Benjamin Evans MD Transcribed by Clinton Anderson Authenticated and [facility]
== END ==
PROVIDERS: PCP Family Medicine; Visit Provider Surgery
DX: R11.0 Nausea (principal)
CPT/HCPCS: 74177; Q9967

== ENCOUNTER → 2022-09-03 07:36 | Outpatient (CLI) | payer MEDICARE, SELFPAY ==
--- NOTE | 2022-09-03 07:36 | US_ITS ---
FINAL REPORT CLINICAL HISTORY: lt breast mass FINDINGS: LEFT BREAST ULTRASOUND Comparison: 06/16/2022 FINDINGS: A subtle hypoechoic nodule was previously visualized in the left breast at 6:00 measuring 5 mm. This was separate from a hypoechoic shadowing area corresponding to postoperative change. The nodule at 6:00 is no longer evident. Therefore biopsy was not performed. IMPRESSION: Small subcentimeter nodule of interest previously seen at 6:00 no longer evident BI RAD-3: PROBABLY BENIGN RECOMMENDATION: Short-term sonographic follow-up left breast in 6 months for continued surveillance Authenticated and [facility]
== END ==
PROVIDERS: PCP Family Medicine; Visit Provider Surgery
DX: R92.8 Other abnormal and inconclusive findings on diagnostic imaging of breast (principal)
CPT/HCPCS: 76642

== ENCOUNTER → 2022-10-03 14:24 | Outpatient (CLI) | payer MEDICARE, SELFPAY ==
--- NOTE | 2022-10-03 14:27 | CT_ITS ---
FINAL REPORT TECHNIQUE: Axial images were obtained from the lung apex to the mid abdomen by computed tomography. This study was performed with techniques to keep radiation doses as low as reasonably achievable (ALARA). Individualized dose reduction techniques using automated exposure control or adjustment of mA and/or kV according to the patient's size were employed. CLINICAL HISTORY: TABACCO USE. SCREENING CURRENT SMOKER 1PPD X45 YEARS COMPARISON: 06/18/2021 FINDINGS: CHEST CT LOW DOSE CTDI vol (mGy): 2.90 DLP (mGy-cm): 92.21 There is no axillary adenopathy. There is no hilar or mediastinal adenopathy. The heart is normal in size. There is no pericardial or pleural effusion. There is a 4 mm subpleural left upper lobe nodule on image 23, unchanged. There is a right middle lobe 5 mm nodule on image 51, unchanged. In addition, there is a 4 mm right lower lobe nodule seen on image 36 which is unchanged. No new mass or nodule is identified Limited images of the upper abdomen are unremarkable. IMPRESSION: Stable pulmonary nodules as detailed above. Lung RADS category 2. Recommend 12 month follow-up low-dose chest CT. Reviewed, Interpreted and Dictated by Dominique Reynolds MD Transcribed by Simi Blank Authenticated and [facility]
== END ==
PROVIDERS: PCP Family Medicine; Visit Provider Family Medicine
DX: Z87.891 Personal history of nicotine dependence (principal); Z12.2 Encounter for screening for malignant neoplasm of respiratory organs
CPT/HCPCS: 71271

== ENCOUNTER → 2023-01-16 10:53 | Outpatient (CLI) | payer MEDICARE, SELFPAY ==
--- NOTE | 2023-01-16 10:57 | MM_ITS ---
PROCEDURE INFORMATION: Exam: MG Bilateral Screening 3D Mammography Exam date and time: 01/16/2023 10:49 AM Age: 73 years old Clinical indication: Screening examination . History of left breast cancer. TECHNIQUE: Imaging protocol: Bilateral Screening tomosynthesis and 2D mammography including computer-aided detection (CAD) when performed. COMPARISON: 1. MG MM DIG MAMM DX UNILAT LT CAD 07/30/2022 1:59 PM 2. MG MM DIG SCREENING MAMM BI W/CAD 12/30/2021 2:00 PM FINDINGS: MAMMOGRAPHY: Breast composition: There are scattered areas of fibroglandular density. Mass: None. Architectural distortion: Stable post operative architectural distortion in the left 12 o'clock axis due to prior lumpectomy for carcinoma. Calcifications: No suspicious calcifications. Asymmetric density: None. Skin thickening: None. Axillary adenopathy: None. Other findings: . IMPRESSION: No mammographic evidence of malignancy. Annual screening is recommended unless otherwise clinically indicated. ASSESSMENT: BI-RADS Category 2: Benign
== END ==
PROVIDERS: PCP Family Medicine; Visit Provider Family Medicine
DX: Z12.31 Encounter for screening mammogram for malignant neoplasm of breast (principal)
CPT/HCPCS: 77063; 77067

== ENCOUNTER → 2023-01-29 08:49 | Outpatient (CLI) | payer MEDICARE, SELFPAY ==
--- NOTE | 2023-01-29 08:52 | XR_ITS ---
FINAL REPORT TECHNIQUE: Bone mineral density was calculated of the lumbar spine and hip. CLINICAL HISTORY: osteopenia COMPARISON: 05/07/2020 FINDINGS: Using L1-4, the bone mineral density of the spine is 1.158 g/cm2, corresponding to T-score of 1.0. This may be falsely elevated secondary to hypertrophic changes. Using the left hip, the bone mineral density of the femoral neck is 0.755 g/cm2, corresponding to a T-score of -0.9. Using the right hip, the bone mineral density of the femoral neck is 0.625 g/cm2, corresponding to a T-score of -2.0. NOTE: T-score: Standard deviation compared with peak bone mass of young adult mean. *Following the recommendations of the International Society of Bone densitometry, classification of hip BMD is based on the lower of two T-scores; total hip or femoral neck. IMPRESSION: Findings consistent with low bone density. FRAX data reports major osteoporotic fracture of 12% and hip fracture of 3.5%. Reviewed, Interpreted and Dictated by Jose Raul Fowler III, MD Transcribed by Simi Blank Authenticated and [facility]
== END ==
PROVIDERS: PCP Family Medicine; Visit Provider Family Medicine
DX: M85.89 Other specified disorders of bone density and structure, multiple sites (principal)
CPT/HCPCS: 77080

== ENCOUNTER 2023-06-14 10:13 | Emergency (ER) | payer MEDICARE, SELFPAY ==
--- NOTE | 2023-06-14 10:20 | ECG_ITS ---
APPROVED REPORT Exam: Resting ECG HR:79 bpm ECG Measurements Heart Rate 79 AXES DE 189 P 71 QRSd 90 QRS 72 QT 385 T 73 QTc 420 Conclusion SINUS RHYTHM LOW QRS VOLTAGE IN PRECORDIAL LEADS [QRS DEFLECTION < 1.0 mV IN CHEST LEADS] BORDERLINE ECG UNCONFIRMED REPORT Electronically signed by : David De Paz MD 06/15/2023 17:12:38
[2023-06-14 10:25] VITALS: BP 156/93; PULSE 84; RESP 22; TEMP 36.9; O2SAT 98; BMI 34.7
--- NOTE | 2023-06-14 10:48 | XR_ITS ---
PROCEDURE INFORMATION: Exam: XR Chest Exam date and time: 06/14/2023 11:21 AM Age: 73 years old Clinical indication: Chest wall pain; Additional info: L chest wall pain. H/o radiation TECHNIQUE: Imaging protocol: Radiologic exam of the chest. Views: 1 view. Total images: 1 COMPARISON: CT LUNG SCREENING 10/03/2022 2:32 PM FINDINGS: Lungs: Atelectatic changes noted within both lung bases. No focal pneumonia or pneumothorax. Pleural spaces: No pleural effusions. Heart/Mediastinum: Unremarkable. No cardiomegaly. Bones/joints: The thoracic spine demonstrates mild degenerative changes at multiple levels. Soft tissues: Surgical clips noted within the left axilla. IMPRESSION: 1. Atelectatic changes noted within both lung bases. 2. No focal pneumonia or pneumothorax. 3. No pleural effusions.
[2023-06-14 10:56] LABS: Chloride 101 mmol/L (98-107); Sodium 138 mmol/L (136-145)
[2023-06-14 10:59] LABS: Alanine Aminotransferase 27 U/L (12-78); Albumin/Globulin Ratio 1.2 (1.1-1.8); Alkaline Phosphatase 115 U/L (38-126); Aspartate Amino Transferase 28 U/L (14-36); Bilirubin,Total 0.3 mg/dl (0.2-1.3); Blood Urea Nitrogen 21 mg/dl (7-17); Calcium 9.6 mg/dl (8.4-10.2); Carbon Dioxide 32 mmol/L (22.0-30.0); Creatinine Clearance Estimated 59 mL/min (50-200); Estimated Glomerular Filt Rate 44 ml/min (>60); GFR (African American) 54 ML/MIN (>60); Globulin 3.4 g/dL (1.3-3.2); Glucose 105 mg/dl (74-100); Lipase 34 U/L (23-300); Total Protein,Serum 7.4 g/dl (6.3-8.2)
[2023-06-14 11:01] LABS: Basophils # 0.1 K/mm3 (0-0.2); Basophils % 0.8 % (0.1-2.0); Eosinophils # 0.1 K/mm3 (0.0-0.4); Eosinophils % 1.6 % (0.1-12.0); Hemoglobin 14.5 g/dL (12.2-16.2); Lymphocytes # 1.7 K/mm3 (0.7-4.5); Lymphocytes % 20.1 % (10-50); Mean Corpuscular HGB Conc 31.6 g/dL (31.8-35.4); Mean Corpuscular Hemoglobin 29.3 pg (27.0-31.2); Mean Corpuscular Volume 92.7 fl (81-99); Mean Platelet Volume 7.3 fl (7.4-10.4); Monocytes # 0.5 K/mm3 (0.1-1.0); Monocytes % 6.4 % (1.7-9.3); Neutrophils # 5.9 K/mm3 (1.8-7.8); Neutrophils % 71.2 % (37.0-80.0); Platelet Count 344 K/mm3 (142-424); Red Blood Count 4.96 M/mm3 (4.20-5.40); Red Cell Distribution Width 13.7 % (11.5-17.5); White Blood Count 8.2 K/mm3 (4.8-10.8)
--- NOTE | 2023-06-14 11:05 | PC.NURSE ---
RAD at for CXR
--- NOTE | 2023-06-14 11:10 | HMH.EDGENADL ---
Discharge Plan Disposition Patient Disposition: Home, Self-Care Chief Complaint: Shortness of Breath/Dyspnea Prescriptions Prescriptions: No Action duloxetine [Cymbalta] 60 mg capsule,delayed release(DR/EC) 60 mg PO DAILY alprazolam 0.5 mg tablet 0.5 mg PO TID cholecalciferol (vitamin D3) 1,000 unit capsule 1,000 unit PO DAILY aspirin 81 mg tablet,delayed release (DR/EC) 81 mg PO DAILY fexofenadine [So Allergy] 60 mg tablet 60 mg PO Q12H clotrimazole [Antifungal (clotrimazole)] 1 % cream 1 applic TOPICAL BID calcium carbonate [Calcium 600] 600 mg calcium (1,500 mg) tablet 600 mg PO DAILY anastrozole 1 mg tablet 1 mg PO DAILY bupropion HCl 150 mg tablet extended release 24 hr 150 mg PO DAILY hydrochlorothiazide 12.5 mg tablet 12.5 mg PO DAILY losartan 25 mg tablet 25 mg PO DAILY clonidine HCl 0.2 mg tablet 0.2 mg PO DAILY amlodipine 5 mg tablet 5 mg PO BID coenzyme [id number] 1 EACH capsule 1 each PO DAILY Referrals Follow up/Referrals: Anne Whyte MD [Primary Care Provider] - See instructions Activity Restrictions/Add. Instructions Additional Instructions/Restrictions: Call your family doctor to establish care for this visit to the emergency department and schedule follow-up within 48 hours to ensure improvement. If you have any worsening of your condition or any other concerning signs or symptoms, return to the emergency department or your primary care doctor for further evaluation. Clinical Impressions Clinical Impression: Acute pleurisy without pleural effusion, Fibrosis of lung following radiation Discharge ED Provider: Joseph Chau General Adult HPI General Chief complaint: Shortness of Breath/Dyspnea Stated complaint: cough, chest congestion Time Seen by Provider: 06/14/23 10:26 Mode of Arrival: Ambulatory Source of Information: Patient Limitations: No Limitations Description of Symptoms (Recalled from ER Triage Doc. by RN): pt to ed c/o left rib pain and shortness of breath x3 days. pt reports a gradual onset that has been progressive. pt reports non-productive cough. History of Present Illness HPI narrative: 73-year-old female history of left-sided breast cancer status post radiation therapy currently on estrogen controller therapy, pneumonia, depression, fibromyalgia, anxiety, depression presenting with left-sided chest wall pain. Patient states this has been going on for about 3 months. It has been getting progressively worse. Starts in the posterior left chest, radiates through the chest to her left lower chest. Not associated with fevers, chills, nausea, vomiting, cough, but has shortness of breath when chest pain occurs because it prevents her from taking deep breaths. Not constant, intermittent. Not positional. Has not noticed anything that makes it any better. Patient currently on estrogen maintenance therapy for breast cancer. Related Data Home Medications Medication Instructions Recorded Confirmed alprazolam 0.5 mg tablet 0.5 mg PO TID Anxiety 12/24/18 10/09/22 aspirin 81 mg tablet,delayed 81 mg PO DAILY Heart disease 12/24/18 10/09/22 release cholecalciferol (vitamin D3) 25 1,000 unit PO DAILY Supplement 12/24/18 10/09/22 mcg (1,000 unit) capsule duloxetine 60 mg capsule,delayed 60 mg PO DAILY Depression 12/24/18 10/09/22 release (Cymbalta) coenzyme Q10 50 mg-vitamin E 5 1 each PO DAILY Supplement 02/04/19 10/09/22 unit capsule anastrozole 1 mg tablet 1 mg PO DAILY breast cancer 08/19/19 10/09/22 bupropion HCl 150 mg 24 hr tablet, 150 mg PO DAILY Depression 07/01/21 10/09/22 extended release hydrochlorothiazide 12.5 mg tablet 12.5 mg PO DAILY Hypertension 07/01/21 10/09/22 calcium carbonate 600 mg calcium 600 mg PO DAILY Supplement 08/29/21 10/09/22 (1,500 mg) tablet (Calcium) clotrimazole 1 % topical cream 1 applic topical BID RASH 08/29/21 10/09/22 (Antifungal
[2023-06-14 11:13] LABS: Troponin I < 0.01 ng/ml (0.00-0.034)
--- NOTE | 2023-06-14 12:01 | PC.NURSE ---
pt resting in bed no needs at this time,call light at bs
--- NOTE | 2023-06-14 12:27 | PC.NURSE ---
rounded on pt no needs,call light at bs
[2023-06-14 12:30] VITALS: BP 141/51; PULSE 82; O2SAT 96
[2023-06-14 13:00] VITALS: BP 151/61; PULSE 82; O2SAT 97
--- NOTE | 2023-06-14 13:10 | PC.NURSE ---
at bs with ultrasound
[2023-06-14 13:30] VITALS: BP 151/68; PULSE 80; RESP 20; TEMP 36.9; O2SAT 97
== END 2023-06-14 13:31 | disposition home or self-care (01) ==
PROVIDERS: Emergency Provider Emergency Medicine; PCP Family Medicine
DX: R09.1 Pleurisy (principal); J70.1 Chronic and other pulmonary manifestations due to radiation; R07.81 Pleurodynia; C50.911 Malignant neoplasm of unspecified site of right female breast; F32.A Depression, unspecified; M79.7 Fibromyalgia; I10 Essential (primary) hypertension; E03.9 Hypothyroidism, unspecified; F17.210 Nicotine dependence, cigarettes, uncomplicated
CPT/HCPCS: 71045; 80053; 83690; 84484; 85025; 93005; 99285

== ENCOUNTER → 2023-07-15 12:37 | Outpatient (CLI) | payer MEDICARE, SELFPAY ==
--- NOTE | 2023-07-15 12:40 | US_ITS ---
PROCEDURE INFORMATION: Exam: US Left Breast, Complete Exam date and time: 07/15/2023 1:11 PM Age: 73 years old Clinical indication: Palpable abnormalities in the left breast: HX of lumpectomy lt breast; Additional info: Lt breast mass TECHNIQUE: Imaging protocol: Complete ultrasound of all four quadrants of the left breast and the retroareolar regions, including ultrasound of the axilla when performed. COMPARISON: US BREAST LT LIMITED 09/03/2022 9:00 AM FINDINGS: Breast: Sonographic images of the left breast including the retroareolar region, all 4 quadrants and the axilla do not demonstrate any solid or cystic masses. This is with particular attention to the 12 o'clock axis 15 cm from the nipple and the 10 o'clock axis 9 cm from the nipple where the patient reports 2 palpable abnormalities. Predominantly adipose tissue is noted over both areas of palpable concern. Postoperative distortion in the 4 o'clock axis 4 cm from the nipple is due to prior lumpectomy. No architectural distortion or acoustical shadowing. No skin thickening or axillary adenopathy. IMPRESSION: Patient to return for a diagnostic left mammogram for full evaluation of the patient's complaint of 2 palpable abnormalities ASSESSMENT: BI-RADS Category 0: Incomplete- Need Additional Imaging Evaluation and/or Prior Mammograms for Comparison
--- NOTE | 2023-07-15 12:41 | CT_ITS ---
FINAL REPORT TECHNIQUE: The patient was injected with IV contrast. Axial images were obtained of the chest by computed tomography. Precontrast images were also obtained. This study was performed with techniques to keep radiation doses as low as reasonably achievable (ALARA). Individualized dose reduction techniques using automated exposure control or adjustment of mA and/or kV according to the patient's size were employed. CLINICAL HISTORY: CHEST PAIN, poss left rib fx also lung pain. hx of breast cancer. chemo and radiation scars? COMPARISON: 10/03/2022 CT low-dose FINDINGS: CT OF THE CHEST WITH AND WITHOUT CONTRAST: There is no mediastinal or hilar mass or adenopathy. Heart size is normal. Are postoperative changes of the left breast and left axilla. There is no pericardial or pleural effusion identified. There are several calcified granulomas in the right lung. No suspicious mass or nodule identified. There is a subacute left 7th lateral rib fracture with some callus formation at the fracture site. Limited images of the upper abdomen demonstrate no acute findings. Post cholecystectomy. IMPRESSION: Subacute left 7th lateral rib fracture with callus formation. Reviewed, Interpreted and Dictated by Jose Raul Fowler III, MD Transcribed by Carey De La O Authenticated and . [facility]
--- NOTE | 2023-07-15 14:39 | HMH.ITSTN ---
Allergy list states she allergic to Iodine. I questioned patient and she said its only topical solution. She had iv contrast in the past and had no reaction to iv contrast. Proceeded with contrast study today.
== END ==
PROVIDERS: PCP Family Medicine; Visit Provider Nurse Practitioner Family
DX: N63.20 Unspecified lump in the left breast, unspecified quadrant (principal); R07.89 Other chest pain; R92.8 Other abnormal and inconclusive findings on diagnostic imaging of breast
CPT/HCPCS: 71270; 76641; Q9967

== ENCOUNTER → 2023-08-03 14:41 | Outpatient (CLI) | payer MEDICARE, SELFPAY ==
--- NOTE | 2023-08-03 14:43 | MM_ITS ---
PROCEDURE INFORMATION: Exam: MG Left Diagnostic Breast Tomosynthesis Exam date and time: 08/03/2023 2:34 PM Age: 73 years old Clinical indication: Patient recalled on the basis of a screening mammogram for further evaluation; Left breast; palpable masses TECHNIQUE: Imaging protocol: Left Diagnostic tomosynthesis and 2D mammography including computer-aided detection (CAD) when performed. Unilateral or bilateral exam. COMPARISON: 1. MG MM DIG SCREENING MAMM BI W/CAD 01/16/2023 10:49 AM 2. MG MM DIG MAMM DX UNILAT LT CAD 07/30/2022 1:59 PM FINDINGS: MAMMOGRAPHY: The breast tissue is composed of scattered areas of fibroglandular density. There is no stellate mass, suspicious architectural distortion or suspicious microcalcifications to suggest malignancy. Two skin markers were placed over 2 palpable abnormalities in the left upper breast. Predominantly adipose tissue is seen on routine and spot compression views. No skin thickening or axillary adenopathy. IMPRESSION: Palpable abnormalities in the left breast correspond both mammographically and sonographically to normal fibroglandular structures. There is no mammographic evidence of malignancy. Further evaluation of a palpable abnormality should be based on clinical grounds regardless of radiographic findings or lack thereof. Annual mammographic screening is recommended in January 2024 unless otherwise clinically indicated. ASSESSMENT: BI-RADS Category 1: Negative
== END ==
PROVIDERS: PCP Family Medicine; Visit Provider Nurse Practitioner Family
DX: R92.8 Other abnormal and inconclusive findings on diagnostic imaging of breast (principal); N63.20 Unspecified lump in the left breast, unspecified quadrant
CPT/HCPCS: 77061; 77065; G0279

== ENCOUNTER 2023-11-16 17:04 | Emergency (ER) | payer MEDICARE, SELFPAY ==
--- NOTE | 2023-11-16 17:22 | ED_ITS ---
<Statement entered by Jennyfer Sánchez MD - 11/18/23 11:40> I was consulted by the ALAN, and we discussed the complexity of the problems being addressed. I approved the treatment and management plan for this patient's care in the emergency department, thus performing a substantive portion of the medical decision making. Jennyfer Sánchez MD, OPAL, FACEP Discharge Plan Disposition Patient Disposition: Home, Self-Care Condition: Good Prescriptions Prescriptions: New prednisone 50 mg tablet 50 mg PO DAILY 5 Days Qty: 5 0RF oseltamivir [Tamiflu] 75 mg capsule 75 mg PO BID 5 Days Qty: 10 0RF No Action duloxetine [Cymbalta] 60 mg capsule,delayed release(DR/EC) 60 mg PO DAILY alprazolam 0.5 mg tablet 0.5 mg PO TID cholecalciferol (vitamin D3) 1,000 unit capsule 1,000 unit PO DAILY aspirin 81 mg tablet,delayed release (DR/EC) 81 mg PO DAILY fexofenadine [So Allergy] 60 mg tablet 60 mg PO Q12H clotrimazole [Antifungal (clotrimazole)] 1 % cream 1 applic TOPICAL BID calcium carbonate [Calcium 600] 600 mg calcium (1,500 mg) tablet 600 mg PO DAILY anastrozole 1 mg tablet 1 mg PO DAILY bupropion HCl 150 mg tablet extended release 24 hr 150 mg PO DAILY hydrochlorothiazide 12.5 mg tablet 12.5 mg PO DAILY losartan 25 mg tablet 25 mg PO DAILY clonidine HCl 0.2 mg tablet 0.2 mg PO DAILY amlodipine 5 mg tablet 5 mg PO BID coenzyme [id number] 1 EACH capsule 1 each PO DAILY Referrals Follow up/Referrals: Anne Whyte MD [Primary Care Provider] - See instructions Activity Restrictions/Add. Instructions Additional Instructions/Restrictions: Follow-up with PCP or return to ER as needed for worsening patient. Clinical Impressions Clinical Impression: Acute exacerbation of chronic obstructive pulmonary disease, Influenza A Discharge ED Provider: Jennyfer Sánchez HPI General Chief Complaint: Shortness of Breath/Dyspnea Stated Complaint: fever 100.[address] Time Seen by Provider: 11/16/23 17:18 History of Present Illness HPI narrative: Patient presents with a 24-hour history of productive cough wheezing and fever. Patient smokes a pack of cigarettes a day but only utilizes a rescue inhaler every now and then and has no other COPD medications and is not on chronic oxygen. Patient denies chest pain chills hemoptysis hematochezia melena hematemesis nausea vomiting diarrhea hematuria diaphoresis. Patient has no known exposure to sick contacts. Related Data Home Medications Medication Instructions Recorded Confirmed alprazolam 0.5 mg tablet 0.5 mg PO TID Anxiety 12/24/18 10/13/23 aspirin 81 mg tablet,delayed 81 mg PO DAILY Heart disease 12/24/18 10/13/23 release cholecalciferol (vitamin D3) 25 1,000 unit PO DAILY Supplement 12/24/18 10/13/23 mcg (1,000 unit) capsule duloxetine 60 mg capsule,delayed 60 mg PO DAILY Depression 12/24/18 10/13/23 release (Cymbalta) coenzyme Q10 50 mg-vitamin E 5 1 each PO DAILY Supplement 02/04/19 10/13/23 unit capsule anastrozole 1 mg tablet 1 mg PO DAILY breast cancer 08/19/19 10/13/23 bupropion HCl 150 mg 24 hr tablet, 150 mg PO DAILY Depression 07/01/21 10/13/23 extended release hydrochlorothiazide 12.5 mg tablet 12.5 mg PO DAILY Hypertension 07/01/21 10/13/23 calcium carbonate 600 mg calcium 600 mg PO DAILY Supplement 08/29/21 10/13/23 (1,500 mg) tablet (Calcium) clotrimazole 1 % topical cream 1 applic topical BID RASH 08/29/21 10/13/23 (Antifungal (clotrimazole)) fexofenadine 60 mg tablet (So 60 mg PO Q12H Allergy symptoms 08/29/21 10/13/23 Allergy) amlodipine 5 mg tablet 5 mg PO BID High blood pressure 03/06/22 10/13/23 clonidine HCl 0.2 mg tablet 0.2 mg PO DAILY Hypertension 03/06/22 10/13/23 losartan 25 mg tablet 25 mg PO DAILY Hypertension 03/06/22 10/13/23 Previous Rx's Medication Instructions Recorded oseltamivir 75 mg capsule (Tamiflu) 75 mg PO BID 5 days #10 caps 11/16/23 prednisone 50 mg tablet 50 mg PO DAILY 5 days #5 tabs 11/16/23 Allergies Allergy/AdvReac Type Severity Reaction Status Date / Time celecoxib [From CELEBREX] Allergy Intermediate RASH, Verified 10/13/23 11:35 HIVES, ITCHING Sulfa (Sulfonamide Allergy Intermediate I-HIVES, Verified 10/13/23 11:35 Antibiotics) RASH [SULFA (SULFONAMIDE ANTIBIOTICS)] hydrocodone Allergy Swelling Verified 10/13/23 11:35 of Lip/Tongue/Throat iodine Allergy Blister Verified 10/13/23 11:35 acetaminophen [From Percocet] AdvReac Hyper, No Verified 10/13/23 11:35 relief oxycodone [From Percocet] AdvReac Hyper, No Verified 10/13/23 11:35 relief PFSH PFSH Disclaimer: The information contained in this section may have been updated after the patient was seen, as this information can be updated by other users. Medical History Breast cancer, right Depression Fibromyalgia History of anemia History of COVID-19 History of gastroesophageal reflux (GERD) HTN (hypertension) Hypertension Hypothyroidism Migraine Osteoarthritis Pneumonia Surgical History History of colonoscopy History of laparoscopic cholecystectomy History of lumpectomy Status post cholecystectomy Tubal ligation status Family History Other Family history of COPD (chronic obstructive pulmonary disease) Family history of GERD Family history of TIAs Family history of cancer Family history of diabetes mellitus type II Family history of hyperlipidemia Family history of hypertension Family history of hypothyroidism Family history of migraine headaches Family history of stroke Lung cancer Thyroid cancer Social History Smoking Status: Never smoker second hand exposure: No alcohol intake: never substance use type: denies use current occupational status: retired Travel in the last 8 weeks: None household members: significant other housing: house current occupational exposures/hazards: No caffeine: Yes ROS Obtained: Yes Systems reviewed as appropriate & no additional complaints except as documented Physical Exam General General appearance: alert and in no apparent distress Head Head exam: atraumatic and normal inspection Eye Eye exam: Present normal appearance, PERRL and EOMI ENT ENT exam: Present normal exam, normal oropharynx, mucous membranes moist and other (No exudate) Neck Neck exam: Present normal inspection, full ROM and lymphadenopathy Chest Chest inspection: Present normal inspection and symmetric chest wall rise Respiratory Respiratory exam: Present normal lung sounds bilaterally and wheezes; Absent respiratory distress, stridor or accessory muscle use Cardiovascular Cardiovascular exam: Present normal rhythm, tachycardia and normal heart sounds Abdominal Exam Abdominal exam: Present soft and normal bowel sounds; Absent tenderness, guard ing or rebound Extremities Exam Extremities exam: Present normal inspection and full ROM Back Exam Back exam: Present normal inspection and full ROM Neurological Exam Neurological exam: Present alert, oriented X3 and CN II-XII intact Psychiatric Psychiatric exam: Present normal affect and normal mood Skin Skin exam: Present warm, dry and normal color Lymphatic Lymphatic Findings: no adenopathy HEART Score HEART Score HEART Score assessment performed?: No Critical Care Critical Care Time Critical Care Time: No Medical Decision Making Medical Records Medical records reviewed: Yes I reviewed the patient's medical records. Eulogio Inquiry Pt receiving controlled substance: No Vital Signs Vital Signs: 11/16/23 17:24 11/16/23 18:00 11/16/23 18:29 Temperature 99.2 F 98.0 F Temperature Source Oral Pulse Rate 100 H 100 H Pulse Rate [Right] 105 H Respiratory Rate 20 20 20 Blood Pressure 179/73 H 159/73 H Blood Pressure [Right Arm] 163/75 H Blood Pressure Mean 108 Blood Pressure Mean [Right Arm] 104 02 Sat by Pulse Oximetry 94 L 93 L Oxygen Delivery Method Room Air Room Air Lab Data Lab results reviewed: Yes I reviewed the patient's lab results. Labs: Lab Results 11/16/23 17:29: SARS-CoV-2 (PCR) Not detected, Influenza A Untype (PCR) Detected A, Influenza Type B (PCR) Not detected Response Orders (Tests/Meds): ED MEDICATIONS Discontinued Medications Generic Name Dose Route Start Last Admin Trade Name Freq PRN Reason Stop Dose Admin Albuterol/Ipratropium 3 ml 11/16/23 17:25 11/16/23 18:02 Ipratropium/Albuterol 3 Ml Neb 11/16/23 17:26 3 ml ONCE ONE Administration Dexamethasone Sodium Phosphate 10 mg 11/16/23 17:22 11/16/23 18:01 Dexamethasone 4mg/Ml 1ml Vial IM 11/16/23 17:23 10 mg ONCE ONE Administration Oseltamivir Phosphate 75 mg 11/16/23 18:24 11/16/23 18:40 Oseltamivir 75mg Capsule PO 11/16/23 18:25 75 mg ONCE ONE Administration ORDERS Category Date Time Status Chest XR -- portable [XR chest portable] Stat Exams 11/16/23 17:22 Completed Rapid PCR Covid and Flu A/B Stat Lab 11/16/23 17:29 Completed MDM Narrative Medical Decision Narrative: In summary patient is a 73-year-old female who presents to the emergency department for evaluation of fever cough shortness of breath. Patient is normotensive tachycardic on arrival upon arrival, with a temperature of 99.2 on presentation. Physical exam is remarkable for end expiratory wheezes in all 4 lam that are mild with no respiratory distress or accessory muscle use. Remainder physical exam is nonfocal and unremarkable. Differential diagnosis includes COPD exacerbation versus respiratory tract infection (either viral or bacterial). Initial workup will be conducted with flu and COVID swabs. Initial interventions include DuoNeb Decadron acetaminophen Toradol. Initial workup reviewed by me is significant for being positive for influenza A.. Upon repeat evaluation patient had improvement of her constitutional symptoms of wheezing and shortness of breath administration of Decadron and DuoNeb. Patient's fever defervesced after ministration of acetaminophen.. Given this is appropriate for discharge for a prescription for Tamiflu and prednisone. Patient will utilize her home metered-dose inhaler. Patient to follow-up with PCP for any worsening or changing symptoms or will return to the ER
--- NOTE | 2023-11-16 17:22 | XR_ITS ---
PROCEDURE INFORMATION: Exam: XR Chest Exam date and time: 11/16/2023 5:37 PM Age: 73 years old Clinical indication: Dyspnea and fever; Additional info: Dyspnea, fever TECHNIQUE: Imaging protocol: Radiologic exam of the chest. Views: 1 view. COMPARISON: CT CHEST WO/W CON 07/15/2023 2:00 PM FINDINGS: Lungs: Possible perihilar opacities could reflect early infiltrate. Pleural spaces: No large effusion or pneumothorax. Heart/Mediastinum: No evidence of mediastinal widening or cardiac silhouette enlargement; the mediastinum and heart appear within normal limits for contour and size. Bones/joints: No evidence of acute osseous abnormalities within the visualized portions of the thoracic spine and ribs. Osseous structures appear appropriate for patient age. Soft tissues: Left axillary surgical clips. IMPRESSION: Possible perihilar opacities could reflect early infiltrate.
[2023-11-16 17:24] VITALS: BP 163/75; PULSE 105; RESP 20; TEMP 37.3; O2SAT 94; BMI 34.7
[2023-11-16 17:32] LABS: Coronavirus 19, PCR Not Detected (NotDetected); Influenza B, PCR Not Detected (NotDetected)
--- NOTE | 2023-11-16 17:40 | PC.NURSE ---
RAD at BS
[2023-11-16 18:00] VITALS: BP 179/73; PULSE 100; RESP 20; O2SAT 93
[2023-11-16 18:01] LABS: Influenza A, PCR Detected (NotDetected)
[2023-11-16] MEDS: DEXAMETHASONE 4MG/ML 1ML VIAL 10 MG IM (18:01)
[2023-11-16] MEDS: IPRATROPIUM/ALBUTEROL 3 ML NEB IH (18:02)
[2023-11-16 18:29] VITALS: BP 159/73; PULSE 100; RESP 20; TEMP 36.7; O2SAT 98
[2023-11-16] MEDS: OSELTAMIVIR 75MG CAPSULE 75 MG PO (18:40)
== END 2023-11-16 18:43 | disposition home or self-care (01) ==
PROVIDERS: Physician Assistant; Emergency Provider Student in an Organized Health Care Education/Training Program; PCP Family Medicine
DX: J10.1 Influenza due to other identified influenza virus with other respiratory manifestations (principal); J44.1 Chronic obstructive pulmonary disease with (acute) exacerbation; F17.210 Nicotine dependence, cigarettes, uncomplicated; R05.8 Other specified cough; R50.9 Fever, unspecified; I10 Essential (primary) hypertension; E03.9 Hypothyroidism, unspecified
CPT/HCPCS: 71045; 87636; 99283

== ENCOUNTER 2024-01-01 14:20 | Outpatient (CLI) | payer MEDICARE, SELFPAY ==
--- NOTE | 2024-01-01 14:24 | XR_ITS ---
FINAL REPORT CLINICAL HISTORY: INJURY OF NECK COMPARISON: None FINDINGS: CERVICAL SPINE 5 views were obtained. There is no acute fracture or malalignment. There is mild disc space narrowing at C5-6. The vertebrae are normal in height. The neuroforamen are adequately patent. IMPRESSION: No acute process. Reviewed, Interpreted and Dictated by Benjamin Evans MD Transcribed by Carey De La O Authenticated and . [facility]
== END 2024-01-01 23:59 | disposition home or self-care (01) ==
LOC: RAD 14:21
PROVIDERS: PCP Family Medicine; Visit Provider Family Medicine
DX: S19.9XXA Unspecified injury of neck, initial encounter (principal)
CPT/HCPCS: 72050

== ENCOUNTER 2024-04-26 10:49 | Outpatient (CLI) | payer MEDICARE, SELFPAY ==
--- NOTE | 2024-04-26 10:52 | MM_ITS ---
PROCEDURE INFORMATION: Exam: MG Bilateral Screening 3D Mammography Exam date and time: 04/26/2024 10:51 AM Age: 74 years old Clinical indication: Screening. Personal history of left breast cancer status post lumpectomy and radiation in 2019. TECHNIQUE: Imaging protocol: Bilateral Screening tomosynthesis and 2D mammography including computer-aided detection (CAD) when performed. COMPARISON: 1. MG MM DIG MAMM DX UNILAT LT CAD 08/03/2023 2:34 PM 2. MG MM DIG SCREENING MAMM BI W/CAD 01/16/2023 10:49 AM 3. MG MM DIG MAMM DX UNILAT LT CAD 07/30/2022 1:59 PM 4. MG MM DIG SCREENING MAMM BI W/CAD 12/30/2021 2:00 PM FINDINGS: MAMMOGRAPHY: Breast composition: There are scattered areas of fibroglandular density. Mass: No suspicious mass. Architectural distortion: Stable post lumpectomy architectural distortion surgical clips in the left breast and stable postsurgical distortion surgical clips in the left axilla. Calcifications: No suspicious calcifications. Asymmetric density: None. Skin thickening: None. Axillary adenopathy: None. IMPRESSION: No mammographic evidence of malignancy. Annual screening is recommended unless otherwise clinically indicated. ASSESSMENT: BI-RADS Category 2: Benign.
--- NOTE | 2024-04-26 10:56 | XR_ITS ---
FINAL REPORT CLINICAL HISTORY: SOB COMPARISON: 11/16/2023 FINDINGS: Two views of the chest were obtained. The heart size and pulmonary vascularity are within normal limits. Postoperative changes are noted in the left chest wall. The mediastinum is normal. No acute pulmonary abnormality is identified. There is no pneumothorax. The bony thorax is intact. IMPRESSION: No active cardiopulmonary disease. Reviewed, Interpreted and Dictated by Jose Raul Fowler III, MD Transcribed by Adela Morales Authenticated and [facility]
== END 2024-04-26 23:59 | disposition home or self-care (01) ==
LOC: RAD 10:49
PROVIDERS: PCP Family Medicine; Visit Provider Family Medicine
DX: Z12.31 Encounter for screening mammogram for malignant neoplasm of breast (principal); R06.02 Shortness of breath
CPT/HCPCS: 71046; 77063; 77067

== ENCOUNTER 2024-05-26 11:11 | Outpatient (CLI) | payer MEDICARE, SELFPAY ==
--- NOTE | 2024-05-26 11:13 | CA_ITS ---
APPROVED REPORT EXAM: Comprehensive 2D, Doppler, and color-flow Echocardiogram Cargo Bracer: Mary Fatima RDCS Ht: 5 ft 2 in Wt: 193lbs BSA: 1.88 BP: 161/111 mmHg Indications: SOA,COPD,EDEMA,HTN,HLP,H/O BREAST CA TDS SECONDARY TO COPD M-Mode Dimensions RVDd 2.57 cm (0.9-2.6) LA Diam 3.01 cm (1.9-4.0) LVDd 5.00 cm (3.5-5.7) LVDs 3.50 cm (3.5-5.7) IVSd 0.89 cm (0.6-1.1) PWd 0.70 cm (0.6-1.1) EF (Teich) 56.90% FS 30.00% EDV (Teich) 118.20 mL TAPSE 2.40 (<1.7) ESV (Teich) 50.90 mL LV Diastology E Decel Time 150 (160-240 msec) E/A Ratio 0.8 Mitral Valve MV E Max Blue. 58.0 (40-130 cm/s) MV A Velocity 73.0 (40-130 cm/s) E/A Ratio 0.80 MV PHT 44.0 ms Left Ventricle The left ventricle is normal size. The left ventricular systolic function is normal. The left ventricular ejection fraction is within the normal range. There is increased LV wall thickness. There is normal LV segmental wall motion. The left ventricular diastolic function is normal. LVEF is 55%. Right Ventricle The right ventricle is normal size. The right ventricular systolic function is normal. Atria The left atrium size is normal. The right atrium size is normal. There is no Doppler evidence of interatrial shunt. Aortic Valve The aortic valve is mildly thickened. There is no aortic valvular stenosis. Mild aortic regurgitation. Mitral Valve The mitral valve is mildly thickened. No evidence of mitral valve stenosis. Trace mitral regurgitation. Tricuspid Valve The tricuspid valve leaflets are thin and pliable. Trace tricuspid regurgitation. There is insufficient TR jet to estimate RVSP. Pulmonic Valve The pulmonary valve is normal in structure. Trace pulmonic regurgitation. Great Vessels The aortic root is not well-visualized. IVC is normal in size and collapses >50% with inspiration. Pericardium There is no pericardial effusion. Other Information Study Quality: Technically Difficult Conclusion Technically difficult study due to poor acoustic windows. Normal biventricular systolic function. Mild AI. Electronically signed by : Tory Fields MD 06/01/2024 12:22:44
== END 2024-05-26 23:59 | disposition home or self-care (01) ==
LOC: RT 11:12
PROVIDERS: PCP Family Medicine; Visit Provider Nurse Practitioner Family
DX: I35.1 Nonrheumatic aortic (valve) insufficiency (principal); R06.02 Shortness of breath; M79.89 Other specified soft tissue disorders
CPT/HCPCS: 93306

== ENCOUNTER 2024-11-04 12:33 | Outpatient (CLI) | payer MEDICARE, SELFPAY ==
[2024-11-04 12:42] LABS: Microscopic, Urine URINE MICROSCOPIC (MICROSCOPIC)
[2024-11-04 12:58] LABS: Basophils # 0.1 K/mm3 (0-0.2); Basophils % 0.9 % (0.1-2.0); Eosinophils # 0.1 K/mm3 (0.0-0.4); Eosinophils % 1.3 % (0.1-12.0); Hematocrit 40.1 % (37.0-47.0); Hemoglobin 12.9 g/dL (12.2-16.2); Lymphocytes # 1.4 K/mm3 (0.7-4.5); Lymphocytes % 17.2 % (10-50); Mean Corpuscular HGB Conc 32.2 g/dL (31.8-35.4); Mean Corpuscular Hemoglobin 29.7 pg (27.0-31.2); Mean Corpuscular Volume 92.2 fl (81-99); Mean Platelet Volume 8.9 fl (7.4-10.4); Monocytes # 0.6 K/mm3 (0.1-1.0); Monocytes % 7.1 % (1.7-9.3); Neutrophils # 5.9 K/mm3 (1.8-7.8); Neutrophils % 72.4 % (37.0-80.0); Platelet Count 289 K/mm3 (142-424); Red Blood Count 4.35 M/mm3 (4.20-5.40); Red Cell Distribution Width 12.7 % (11.5-17.5); White Blood Count 8.2 K/mm3 (4.8-10.8)
[2024-11-04 13:23] LABS: Albumin Level 4.3 g/dl (3.5-5.0); Chloride 100 mmol/L (98-107); Potassium 4.4 mmoL/L (3.5-5.1); Sodium 138 mmol/L (136-145)
[2024-11-04 13:25] LABS: Appearance,Urine CLEAR (Clear); Bilirubin,Urine Negative (Negative); Blood, Urine Negative (Negative); Color,Urine YELLOW (Yellow); Glucose,Urine (UA) 2+ (Negative); Ketones,Urine Negative (Negative); Leukocyte Esterase,Urine Negative (Negative); Nitrate,Urine Negative (Negative); Protein,Urine Negative (Negative); Urobilinogen,Urine 0.2 EU/dl (0.2)
[2024-11-04 13:26] LABS: Anion Gap 12.4 mEq/L (5-15); Blood Urea Nitrogen 18 mg/dl (7-17); Carbon Dioxide 30 mmol/L (22.0-30.0); Estimated Glomerular Filt Rate 34 ml/min (>60); GFR (African American) 41 ML/MIN (>60)
[2024-11-04 13:27] LABS: Glucose 89 mg/dl (74-100); Magnesium 1.9 mg/dl (1.6-2.3); Phosphorous 3.3 mg/dl (2.5-4.5)
[2024-11-04 13:39] LABS: Intact Parathyroid Hormone 62.9 pg/mL (7.5-53.5); WBC,Urine Occasional #/hpf (0-3)
[2024-11-04 14:07] LABS: Microalbumin/Creatinine Ratio 25.7
[2024-11-04 14:22] LABS: Creatinine,Urine Random 76 mg/dL (Not Estab.)
[2024-11-04 14:23] LABS: 25-OH Vitamin D, Total > 126 ng/mL (30-100)
[2024-11-05 03:36] LABS: Potassium, Urine 49.3 mmol/L (Not Estab.)
[2024-11-05 09:32] LABS: Calcium, Urine 8.3 mg/dL (Not Estab.)
[2024-11-07 13:10] LABS: Tandem-R Ostase 18.2 ug/L (.)
[2024-11-07 17:31] LABS: Free Kappa Lt Chains 31.7 mg/L (3.3-19.4); Free Lambda Lt Chains 21.7 mg/L (5.7-26.3)
[2024-11-08 14:54] LABS: Serial Monitoring PDF SCANNED IMAGE
== END 2024-11-04 23:59 | disposition home or self-care (01) ==
LOC: LAB 12:34
PROVIDERS: PCP Family Medicine; Visit Provider Student in an Organized Health Care Education/Training Program
DX: N28.9 Disorder of kidney and ureter, unspecified (principal); M81.8 Other osteoporosis without current pathological fracture
CPT/HCPCS: 36415; 80069; 81001; 82043; 82306; 82340; 82570; 83735; 83883; 83970; 84080; 84133; 84156; 84540; 85025

== ENCOUNTER 2024-11-11 14:01 | Outpatient (CLI) | payer MEDICARE, SELFPAY ==
--- NOTE | 2024-11-11 14:04 | US_ITS ---
FINAL REPORT TECHNIQUE: Ultrasound images of the kidneys and bladder were obtained. CLINICAL HISTORY: RENAL INSUFFICIENCEY FINDINGS: The right kidney is atrophic measuring 8.6 cm in length. It is normal in echogenicity. There is no hydronephrosis. The left kidney measures 11.8 cm in length. It is normal in echogenicity. There is no hydronephrosis. IMPRESSION: 1. No obstructive changes. 2. Mild right renal atrophy. Reviewed, Interpreted and Dictated by Anne Blanca MD Transcribed by Simi Blank Authenticated and . [facility]
== END 2024-11-11 23:59 | disposition home or self-care (01) ==
LOC: RAD 14:02
PROVIDERS: PCP Family Medicine; Visit Provider Student in an Organized Health Care Education/Training Program
DX: N28.9 Disorder of kidney and ureter, unspecified (principal); M81.8 Other osteoporosis without current pathological fracture
CPT/HCPCS: 76770

== ENCOUNTER 2025-01-27 10:23 | Outpatient (CLI) | payer MEDICARE, SELFPAY ==
--- OUTSIDE RECORDS SUMMARY | 2025-01-27 10:26 | XMS_ITS ---
Author Organization Unknown [facility] Start Date Provider Encounter for Check-up [phone] [facility]
[2025-01-27 10:30] LABS: Microscopic, Urine URINE MICROSCOPIC (MICROSCOPIC)
[2025-01-27 11:00] LABS: Appearance,Urine CLEAR (Clear); Bilirubin,Urine Negative (Negative); Blood, Urine Negative (Negative); Color,Urine YELLOW (Yellow); Glucose,Urine (UA) 1+ (Negative); Hematocrit 41.7 % (37.0-47.0); Hemoglobin 13.1 g/dL (12.2-16.2); Ketones,Urine Negative (Negative); Leukocyte Esterase,Urine TRACE (Negative); Mean Corpuscular HGB Conc 31.4 g/dL (31.8-35.4); Mean Corpuscular Hemoglobin 28.8 pg (27.0-31.2); Mean Corpuscular Volume 91.6 fl (81-99); Nitrate,Urine Negative (Negative); Nucleated Red Blood Cells # 0 10^3/uL; Nucleated Red Blood Cells % 0 %; Platelet Count 293 K/mm3 (142-424); Protein,Urine Negative (Negative); Red Blood Count 4.55 M/mm3 (4.20-5.40); Red Cell Distribution Width 13.2 % (11.5-17.5); Red Cell Distribution Width-SD 44.7 fL; Urobilinogen,Urine 0.2 EU/dl (0.2)
[2025-01-27 11:09] LABS: Creatinine,Urine Random 48 mg/dL (Not Estab.)
[2025-01-27 11:15] LABS: Squamous Epithelial Cell,Urine Occasional #/hpf (0-5); WBC,Urine Occasional #/hpf (0-3)
[2025-01-27 11:26] LABS: Albumin Level 4.3 g/dl (3.5-5.0); Anion Gap 13.3 mEq/L (5-15); Blood Urea Nitrogen 23 mg/dl (7-17); Calcium 10.1 mg/dl (8.4-10.2); Carbon Dioxide 29 mmol/L (22.0-30.0); Chloride 99 mmol/L (98-107); Estimated Glomerular Filt Rate 32 ml/min (>60); GFR (African American) 38 ML/MIN (>60); Glucose 88 mg/dl (74-100); Phosphorous 3.3 mg/dl (2.5-4.5); Potassium 4.3 mmoL/L (3.5-5.1); Sodium 137 mmol/L (136-145)
== END 2025-01-27 23:59 | disposition home or self-care (01) ==
LOC: LAB 10:24
PROVIDERS: PCP Family Medicine; Visit Provider Student in an Organized Health Care Education/Training Program
DX: N28.9 Disorder of kidney and ureter, unspecified (principal); M81.8 Other osteoporosis without current pathological fracture
CPT/HCPCS: 36415; 80069; 81001; 82570; 84156; 85027

== ENCOUNTER 2025-04-10 14:28 | Outpatient (CLI) | payer MEDICARE, SELFPAY ==
--- OUTSIDE RECORDS SUMMARY | 2024-12-02 07:30 | XMS_ITS ---
[facility] Organization [facility] Address [address] [facility] 36 [facility] [address] [place] [phone] Care Team Providers Care Sticker On Name Role Phone Jennyfer Whyte Primary Care [...] Encounter Location Date Provider Diagnosis M[place] [address] [facility] 36 [facility] [address] [place] [phone] 12/02/2024 Jennyfer Whyte Plan Of Treatment Next Appt Details Provider Name:Jennyfer Watt er, 05/29/2025 10:30:00 AM, [address] [facility], [address], [place], [phone], Progress Notes * TOÑO THOMAS LDOB: (75 yo F)Acc No.[id number]:12/02/2024 Progress Notes Patient: TOÑO THORNE David Provider: Jennyfer Whyte M.D. :1950 A ge:74 Y S ex:Female Date:12/02/2024 Address:[facility], [facility] [place], [id number] Subjective: * Chief Complaints: * 1 . [...] eyes , lumpectomy on left breast at [facility] with Dr Carlos 02/09/19, port placed 03/09/19, Cholecystectomy, Dr. Carlos, [facility] 08/03/22, Resection BCC of nose 08/03/2024. * [...] Electronic signature of Jennyfer Whyte MD on 04/10/2025 at 02:32 PM EDT Sign off status: Pending * Provider: Jennyfer Whyte M.D. Date: 0 12/02/2024 Generated for Jennifer del real/Tammie/Caryitting on: 0 04/10/2025 02:32 PM EDT
--- OUTSIDE RECORDS SUMMARY | 2024-12-26 10:00 | XMS_ITS ---
Author Organization [facility] Address [address] [facility] [address] [place] [phone] Care Team Providers Care Energy Derivatives Trader Name Role Phone Jennyfer Whyte Primary Care [...] 43 Performing Lab: Notes/Report: Test performed by [employer], [employer] [address] [place] [address] , [address], [place] [address] Pio Paiz MD, Art Coordinator CLIA: [id number] Sodium 140 135-145 mmol/L Potassium 4.4 3.5-5.3 [...] 0.2 MG TAKE 1 TABLET BY MO [facility] AT BEDTIME; Duration: 90 Active Ventolin [...] Encounter Location Date Provider Diagnosis [facility] [address] [place] [phone] 12/26/2024 Jennyfer Whyte Essential hypertensi on I10 [...] 05/29/2025 10:30:00 AM, [address] [facility], [address] [place] [address], [phone], Progress Notes * TOÑO THOMAS LDOB: 2 (75 yo F)Acc No.[id number]:12/26/2024 Progress Notes Patient: TOÑO THORNE Provider: Jennyfer Whyte M.D. :1950 A ge:74 Y S ex:Female Date:12/26/2024 Address:[address] [id number] Subjective: * Chief Complaints: * 1 . [...] eyes , lumpectomy on left breast at [facility] with Dr Carlos 02/09/19, port placed 03/09/19, Cholecystectomy, Dr. Carlos, [facility] 08/03/22, Resection BCC of nose 08/03/2024. [...] * Images: Billing Information: * Visit Code: 67488 Office Visit, Est Pt., Level 4. * Procedure Codes: G2211 Complex e/m visit add on. 3077F SYST BP = 140 MM HG6 IT. 3078F DIAST BP < 80 MM HG. * Electronic signature of Jennyfer Whyte MD on 04/10/2025 at 02:33 PM EDT Sign off status: Pending * Provider: Jennyfer Whyte M.D. Date: 0 12/26/2024 Generated for Jennifer del real/Tammie/eTransmitting on: 0 04/10/2025 02:33 PM EDT History and Physical Notes * HPI [...]
--- OUTSIDE RECORDS SUMMARY | 2025-03-27 07:00 | XMS_ITS ---
Author Organization [facility] Address [address] [facility] [address] [place] [id number] Care Team Providers Care Grain Manager Name Role Phone Jennyfer Whyte Primary Care [...] Unknown Drug Allergy Active REASON FOR VISIT 3 month f/u, Needs [...] 0.2 MG TAKE 1 TABLET BY MO UTH AT BEDTIME; Duration: 90 Active DULoxetine HCl [...] Status Risk Notes Problem Stress at home (148766587) Stress at home (F43.9) Active confirmed Problem Obese class II ([id number]) BMI 39.0-39.9,jenni lt (Z68.39) Active confirmed Vital Signs Blood pressure systolic 150 mm Hg 03/27/20 25 Blood pressure diastolic 60 mm Hg 025 Heart Rate 92 /min 03/27/2025 Height 62.75 in 03/27/2025 Weight 219.8 lbs 03/27/2025 BMI 39.24 kg/m2 03/27/2025 Encounters [facility]counter [facility] Date [facility] [address] [place] [phone] 03/27/2025 Jennyfer Whyte Essential hypertensi on I10 [...] 05/29/2025 10:30:00 AM, [address] [facility], [address] , [place], [place], [phone], Progress Notes * TOÑO PURCELL LDOB: 2 (75 yo F)Acc No.[id number]:03/27/2025 Progress Notes Patient: TOÑO THORNE Provider: Jennyfer Whyte M.D. :1950 A ge:75 Y S ex:Female Date:03/27/2025 Address:[place] [address], [facility] [id number] Subjective: * Chief Complaints: * 1 . [...] lumpectomy on left breast at [facility] with Dr Carlos 02/09/19, port placed 03/09/19, Cholecystectomy, Dr. Carlos, [facility] 08/03/22, Resection BCC of nose [...] 92, O2 Sat: 97% on RA, Nurse: artem, Ht: 62.75, Repeat BP: 132/64, BMI:39.24. * [...] tobacco use?Imaging: CT Scan : Chest, low dose* Florence Madrid 03/29/2025 02:0 0:31 PM EDT > no auth required; CPT code 69089; faxed to [facility] Scheduling * Procedure Codes: G 2211 Complex e/m visit add on, G8950 PREHTN/HTN BP DOC INDCD F/U DOC, G8752 MOST RECENT SYSTOLIC BP < 140MM HG, G8754 MOST RECENT DIASTOLIC BP < 90MM HG * Follow Up: 2 M * Images: Billing Information: * Visit Code: 51381 Office Visit, Est Pt., Level 4. * Procedure Codes: G2211 Complex e/m visit add on. G8950 PREHTN/HTN BP DOC INDCD F/U DOC. G8752 MOST RECENT SYSTOLIC BP < 140MM HG. G8754 MOST RECENT DIASTOLIC BP < 90MM HG. * Electronic signature of Jennyfer Whyte MD on 04/10/2025 at 02:33 PM EDT Sign off status: Pending * Provider: Jennyfer Whyte M.D. Date: 03/27/2025 Generated for Jennifer del real/Tammie/eTransmitting on: 04/10/2025 02:33 PM EDT History and Physical [...]
--- NOTE | 2025-04-10 14:29 | CT_ITS ---
FINAL REPORT TECHNIQUE: Thin section axial images were obtained through the lungs using a low-dose technique per lung cancer screening protocol. Reconstruction images were obtained using the axial data. Exam was performed using dose reduction technique. CLINICAL HISTORY: SCREENING former smoker, quit 18 month ago. smoked 1/2 pdd x 40 year COMPARISON: 07/15/2023 FINDINGS: CTDLvol: 2.90 DLP: 102.12 74-year-old former smoker, who quit 18 months ago 20 pack year history Lungs: No acute pulmonary abnormality. The 4 mm left upper lobe nodule noted on the prior exam remains present and is unchanged in appearance, best seen on image #26 of series 4. There is a stable 5 mm right middle lobe nodule noted, best seen on image #54 of series 4, also stable. The right lower lobe nodule seen on the prior exam is less conspicuous on the current exam. No new nodules are identified. Lymph nodes: No thoracic lymphadenopathy. Mediastinum: Heart size is normal. Pleura/pericardium: No pleural or pericardial effusion. Other: No acute abnormality in the upper abdomen. IMPRESSION: No suspicious pulmonary nodule or mass. Lung RADS: 2 Recommendation: 12-month follow-up LDCT Reviewed, Interpreted and Dictated by Dominique Reynolds MD Transcribed by Adela Morales Authenticated and [facility]
--- OUTSIDE RECORDS SUMMARY | 2025-04-10 14:32 | XMS_ITS | Clinical Summary ---
Author Organization [facility] Address [address] 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 Phone Doni Whyte MD Primary Care Provider [phone] Allergies Active Allergy Reactions Criticality Noted Date Comments Celecoxib Unknown - Patient states they do not know rxn details Low 10/25/2024 Oxaprozin Unknown - Patient states they do not know rxn details Low 10/25/2024 Iodinated Contrast Media Other - please document in the comment field High 10/25/2024 Blisters on tongue and lips Other Other - please document in the comment field Low 10/25/2024 Steroids makes patient nervous Nabumetone Unknown - Patient states they do not know rxn details Low 10/25/2024 Sulfa Drugs Unknown - Patient states they do not know rxn details Low 10/25/2024 Medications exemestane (Aromasin) 25 MG chemo tablet Take 1 tablet (25 mg total) by mouth 1 (one) time each day. Take after a meal. Try to take at the same time each day. Active polycarbophil (Fibercon) 625 MG tablet Take by mouth 1 (one) time each day. Active aspirin 81 MG EC tablet Take 1 tablet (81 mg) by mouth 1 (one) time each day. Active albuterol 108 (90 Base) MCG/ACT inhaler Inhale 2 puffs. Active ALPRAZolam (Xanax) 0.5 MG tablet Take 1 tablet (0.5 mg) by mouth 3 (three) times a day if needed for anxiety. Active DULoxetine (Cymbalta) [address] capsule Take 1 capsule (60 mg) by mouth 1 (one) time each day. Do not crush or chew. Active risedronate (Actonel) 35 MG tablet Take 1 tablet (35 mg) by mouth every 7 (seven) days. Take in morning with full glass of water on an empty stomach. No food, drink, meds, or lying down for 30 minutes after. Active amLODIPine (Norvasc) 5 MG tablet Take 1 tablet (5 mg) by mouth 2 (two) times a day. Active buPROPion SR (Wellbutrin SR) 150 MG 12 hr tablet Take 1 tablet (150 mg) by mouth 2 (two) times a day. Do not crush, chew, or split. Active losartan (Cozaar) 50 MG tablet Take 0.5 tablets (25 mg) by mouth 2 (two) times a day. Active cloNIDine (Catapres) 0.2 MG tablet Take 1 tablet (0.2 mg) by mouth every night. Active furosemide (Lasix) 20 MG tablet Take 1 tablet (20 mg) by mouth 1 (one) time if needed. Active Jardiance 10 MG Take 1 tablet by mouth daily. 01/11/2025 Active lactobacillus (Culturelle Immunity Support) capsule Take 1 capsule by mouth daily. Active Active Problems Problem Noted Date Diagnosed Date Class III obesity with body mass index (BMI) of 40.0 or higher 01/27/2025 Other osteoporosis without current pathological fracture 11/07/2024 Hypervitaminosis D 11/07/2024 Hypercalcemia 11/07/2024 Hyperkalemia 11/07/2024 Stage 3 chronic kidney disease 11/07/2024 Hypertensive chronic kidney disease with stage 1 through stage 4 chronic kidney disease, or unspecified chronic kidney disease 11/07/2024 Renal insufficiency 11/04/2024 Encounters Date Type Department Care Team Description 01/27/2025 11:20 AM EDT Office Visit [facility] [address] [place] [phone] Kevin Mack MD Renal insufficiency (Primary Dx); Other osteoporosis without current pathological fracture; Hypervitaminosis D; Hypercalcemia; Hyperkalemia; Stage 3 chronic kidney disease, unspecified whether stage 3a or 3b CKD (CMS/HCC); Hypertensive chronic kidney disease with stage 1 through stage 4 chronic kidney disease, or unspecified chronic kidney disease 01/27/2025 Travel from Last 3 Months Immunizations Immunization Administration Dates Next Due Hep B, adult 11/08/2004,05/08/2004,04/02/2004 Influenza, High-dose, Split Virus, Trivalent, Injectable, preservative free 06/21/2024,05/31/2018 Influenza, high-dose, quadrivalent 06/11/2021 Pneumococcal Conjugate PCV 13 11/03/2018 TD (adult), 2 Lf tetanus tox oid, preservative free, adsorbed 11/16/1996 Tdap 02/20/2015 Family History Medical History Relation Name Comments Emphysema Father Diabetes Mother Relation Name Status Comments Father Mother Social History Tobacco Use Types Packs/Day Years Used Date Smoking Tobacco: Former Cigarettes 2 40.2 S tarted: 01/27/1985 Smokeless Tobacco: Never Tobacco Cessation:Counseling Given: Not Answered Alcohol Use Standard Drinks/Week Comments Never 0 (1 standard drink = 0.6 oz pur e alcohol) Comments No Sex and Gender Information Value Date Recorded Sex Assigned at Not on file Legal Sex Female 7:15 PM EDT Gender Identity Not on file Sexual Orientation Not on file Last Filed Vital Signs Vital Sign Reading Time Taken Comments Blood Pressure 139/62 01/27/2025 11:09 AM EDT Pulse 76 01/27/2025 11:09 AM EDT Temperature 36.6 C (97.8 F) 11/04/2024 11:09 AM EST Respiratory Rate 22 01/27/2025 11:09 AM EDT Oxygen Saturation 96% 01/27/2025 11:09 AM EDT Inhaled Oxygen Concentration - - Weight 97.5 kg (215 lb) 01/27/2025 11:09 AM EDT Height 157.5 cm (5' 2 ) 01/27/2025 11:09 AM EDT Body Mass Index 39.32 01/27/2025 11:09 AM EDT Plan of Treatment Health Maintenance Due Date Last Done Comments [facility]-Bone Density Scan 1950 [facility]-Depression Screening 1950 [facility]-Hepatitis C Screening 1950 [facility]-Medicare Annual Wellness (AWV) 1950 [facility]-Infant/Child/Adol SDOH Screenings 1950 [facility]- SDOH Screenings 01/07/1970 [facility]-Adult SDOH Screenings 01/07/1970 [facility]-Zoster Vaccines (1 of 2) 01/07/1971 CT Colonography 01/07/1997 Colonoscopy 01/07/1997 FIT-DNA 01/07/1997 FIT 01/07/1997 FOBT 01/07/1997 Sigmoidoscopy 01/07/1997 [facility]-Colorectal Cancer Screening 01/07/1997 [facility]-Breast Cancer Screening 01/07/2002 [facility]-RSV Vaccine: 60+ Years or (1 - Risk 60-74 years 1-dose series) 2012 [facility]-Pneumococcal Vaccine: 50+ Years (3 of 3 - PCV20 or PCV21) 11/03/2023 11/03/2018, 08/04/2016 [id number]-40 Vaccine ( - season) 2024 12/19/2021, 08/02/2021, 11/02/2020, Additional history exists [facility]-DTaP,Tdap,and Td Vaccines (3 - Td or Tdap) 02/20/2025 02/20/2015, 05/24/2010, 11/16/1996 [facility]-Influenza Vaccine (#1) 05/15/202506/21, 06/11/2021, 06/04/2020, Additional history exists [facility]-Obesity Intervention Completed 01/27/2025, 10/16 HPV Vaccines Aged Out No longer eligi ble based on patient's age to complete this topic [facility]-HIB Vaccines Aged Out No longer e ligible based on patient's age to complete this topic [facility]-Hepatitis A Vaccines Aged Out No longer eligible based on patient's age to complete this topic [facility]-IPV Vaccines Aged Out No longer e ligible based on patient's age to complete this topic [facility]-Rotavirus Vaccines Aged Out No lo nger eligible based on patient's age to complete this topic Insurance [facility] MEDIC[facility] Care Teams 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
--- OUTSIDE RECORDS SUMMARY | 2025-04-10 14:32 | XMS_ITS | Patient Health Record ---
Author Organization [facility] Address [address] [facility] [address] [place] [id number] Care Team Providers Care Organic Extractions Technician Name Role Phone Jennyfer Whyte Primary Care Provider Nicolle Denny Unavailable [phone] Brigida Anton Unavailable [phone] Allergies Allergen (clinical drug ingredient) Drug/Non Drug [...] Active Results Component Value Reference Range Notes Glycohemoglobin A1c (in hous e) Reviewed date:10/04/2024 09:54:43 AM Interpretation:5.8% Performing Lab: Notes/Report: 5.8% glycohemoglobin 5.8% 5 - 6.5 % P-Comprehensive Metabolic Pa davis (CMP) Reviewed date:10/04/2024 09:54:43 AM Interpretation:K+ 5.8, bun 27, Cr 1.56, Ca 11.1, gfr 35, alk phos 131 Performing Lab: Notes/Report: Test performed by [employer] [facility] , [address], [place] [address] Pio Paiz MD, [facility] CLIA: [id number] Sodium 141 135-145 mmol/L Potassium 5.8 3.5-5.3 mmol/L Chloride 103 97-108 mmol/L CO2 28 22-32 mmol/L Glucose 88 65-99 mg/dL BUN 27 8-23 mg/dL Creatinine 1.56 0.50-1.00 mg/dL Calcium 11.1 8.6-10.4 mg/dL eGFR by Creatinine 35 >59 mL/min/1.73m2 Protein 7.2 6.0-8.3 g/dL Albumin 4.4 3.5-5.3 g/dL Alkaline Phosphatase 131 35-121 IU/L ALT (SGPT) 19 <5-47 IU/L AST (SGOT) 21 <5-40 IU/L Bilirubin, Total 0.2 <0.2-1.2 mg/dL A/G Ratio 1.6 1.1-2.5 P-Basic Metabolic Panel (BMP ) Reviewed date:12/30/2024 10:49:36 AM Interpretation:creat 1.32, eGFR 43 Performing Lab: Notes/Report: Test performed by [employer] [address] [place] [address] [address] , [place] [address] Pio Paiz MD, [facility] CLIA: [id number] Sodium 140 135-145 mmol/L Potassium 4.4 3.5-5.3 mmol/L Chloride 102 97-108 mmol/L CO2 26 22-32 mmol/L Glucose 93 65-99 mg/dL BUN 18 8-23 mg/dL Creatinine 1.32 0.50-1.00 mg/dL Calcium 10.1 8.6-10.4 mg/dL eGFR by Creatinine 43 >59 mL/min/1.73m2 P-Basic Metabolic Panel (BMP ) Reviewed date:08/22/2024 01:17:17 PM Interpretation:Cr 1.45, gfr 38 Performing Lab: Notes/Report: Test performed by [employer] [address] [place] [address] [place] [address] Pio Paiz MD, [facility] CLIA: [id number] Sodium 139 135-145 mmol/L Potassium 5.0 3.5-5.3 mmol/L Hemolysis present. Results should be interpreted in conjunction with clinical presentation and history. Chloride 101 97-108 mmol/L CO2 26 22-32 mmol/L Glucose 78 65-99 mg/dL BUN 19 8-23 mg/dL Creatinine 1.45 0.50-1.00 mg/dL Calcium 10.2 8.6-10.4 mg/dL eGFR by Creatinine 38 >59 mL/min/1.73m2 P-Basic Metabolic Panel (BMP ) Reviewed date:06/06/2024 03:42:28 PM Interpretation:GFR 44 Performing Lab: Notes/Report: Test performed by [employer] [address] [place] [address] , [place] [address] Pio Paiz MD, [facility] CLIA: [id number] Sodium 137 135-145 mmol/L Potassium 4.4 3.5-5.3 mmol/L Chloride 99 97-108 mmol/L CO2 29 22-32 mmol/L Glucose 90 65-99 mg/dL BUN 26 8-23 mg/dL Creatinine 1.30 0.50-1.00 mg/dL Calcium 10.5 8.6-10.4 mg/dL eGFR by Creatinine 44 >59 mL/min/1.73m2 P-Comprehensive Metabolic Pa davis (CMP) Reviewed date:05/02/2024 09:20:24 AM Interpretation:creat 1.29, gfr 44, alk phos 125 Performing Lab: Notes/Report: Test performed by [employer] [address] [place] [address] , [place] [address] Pio Paiz MD, [facility] CLIA: [id number] Sodium 138 135-145 mmol/L Potassium 4.0 3.5-5.3 mmol/L Chloride 99 97-108 mmol/L CO2 30 22-32 mmol/L Glucose 97 65-99 mg/dL BUN 22 8-23 mg/dL Creatinine 1.29 0.50-1.00 mg/dL Calcium 10.1 8.6-10.4 mg/dL eGFR by Creatinine 44 >59 mL/min/1.73m2 Protein 6.6 6.0-8.3 g/dL Albumin 4.3 3.5-5.3 g/dL Alkaline Phosphatase 125 35-121 IU/L ALT (SGPT) 17 <5-47 IU/L AST (SGOT) 20 <5-40 IU/L Bilirubin, Total 0.4 <0.2-1.2 mg/dL A/G Ratio 1.9 1.1-2.5 CXR Reviewed date:05/02/2024 09:19:53 AM Interpretation:Negative Performing Lab: Notes/Report: Negative P-Comprehensive Metabolic Pa davis (CMP) Reviewed date:07/19/2024 11:42:37 AM Interpretation:bun 24, creat 1.43, gfr 39 Performing Lab: Notes/Report: Test performed by [employer] [employer] [address] [facility] , [address], [place] [address] Pio Paiz MD, [facility] CLIA: [id number] Sodium 135 135-145 mmol/L Potassium 5.1 3.5-5.3 mmol/L Chloride 100 97-108 mmol/L CO2 29 22-32 mmol/L Glucose 97 65-99 mg/dL BUN 24 8-23 mg/dL Creatinine 1.43 0.50-1.00 mg/dL Calcium 10.1 8.6-10.4 mg/dL eGFR by Creatinine 39 >59 mL/min/1.73m2 Protein 6.8 6.0-8.3 g/dL Albumin 4.0 3.5-5.3 g/dL Alkaline Phosphatase 121 35-121 IU/L ALT (SGPT) 18 <5-47 IU/L AST (SGOT) 15 <5-40 IU/L Bilirubin, Total 0.3 <0.2-1.2 mg/dL A/G Ratio 1.4 1.1-2.5 Mammogram Reviewed date:05/02/2024 09:26:36 AM Interpretation:benign, annual f/u Performing Lab: Notes/Report: benign, annual f/u result benign Medications Medication SIG (Take, Route, Frequency, Duration) Notes Start Date End Date Status Clotrimazole-Betamethasone 1-0.05 % 1 application Externally Twice a day; Duration: 30 days 03/27/2025 Active Jardiance 10 mg take 1 tablet orally once a day; Duration: 30 days Active Ventolin HFA 108 (90 Base) MCG/ACT 1 puff as needed Inhalation bid and q4h prn Activ e Aspirin Adult Low Dose 81 MG 1 tab(s) orally once a day A ctive Vitamin D3 125 MCG (5000 UT) 1 cap(s) orally once a day; Duration: 30 day(s) Active Losartan Potassium 50 MG TAKE 1/2 TABLET BY MOUTH TWO TIMES A DAY; Duration: 90 Active FiberCon 2 OR 3 P.O. Q DAY 01/20/2022 A ctive amLODIPine Besylate 5 MG TAKE 1 TABLET B Y MOUTH TWICE A DAY; Duration: 90 Active Exemestane 25 MG 1 tablet with a meal Orally Once a day; Duration: 30 day(s) Active cloNIDine HCl 0.2 MG TAKE 1 [...] BY MOUTH TWICE DAILY; Duration: 90 Active Immunizations Vaccine Route Administration Date Status Comme nts xFluzone Intradermal (18-64yrs)-trivalent ID Intradermal 07/15/2012 Administered xFlu shot-36 months and older IM Intramuscular 08/09/2007 Administered xFlu shot-36 months and older IM Intramuscular 08/01/2008 Administered xFlu shot-36 months and older IM Intramuscular 08/21/2009 Administered xFlu shot-36 months and older IM Intramuscular 05/24/2010 Administered Tetanus Tdap-Adacel (over 7yrs) IM Intramuscular 05/24/2010 Administered Tetanus Tdap-Adacel (over 7yrs) Unknown 02/20/2015 Administered Prevnar (PCV13) IM Intramuscular 11/03/2018 Administered PNEUMOVAX 23 VACCINE IM Intramuscular 08/04/2016 Administe red Hepatitis B (20 and more) Unknown 04/02/2004 Administer ed Hepatitis B (20 and more) Unknown 04/02/2004 Administer ed Hepatitis B (20 and more) Unknown 05/08/2004 Administer ed Hepatitis B (20 and more) Unknown 05/08/2004 Administer ed Hepatitis B (20 and more) Unknown 11/08/2004 Administer ed H1N1 flu vaccine IM Intramuscular 08/21/2009 Administered Fluzone High Dose (65yr and older) IM Intramuscular 05/31/2018 Administered Fluzone High Dose (65yr and older) IM Intramuscular 07/29/2019 Administered Fluzone High Dose (65yr and older) IM Intramuscular 06/04/2020 Administered Fluzone High Dose (65yr and older) IM Intramuscular 06/11/2021 Administered Fluzone High Dose (65yr and older) IM Intramuscular 06/29/2023 Administered DT, 7 YEARS OR OLDER Unknown 11/16/1996 Administered COVID 19 Moderna IM Intramuscular 10/05/2020 Administered COVID 19 Moderna Unknown 11/02/2020 Administered COVID 19 Moderna Unknown 08/02/2021 Administered COVID 19 Moderna Unknown 12/19/2021 Administered Problems Problem Type SNOMED Code ICD Code Onset Dates Problem Status W/U Status Risk Notes Problem Essential hypertension (73429303) Essential (primary) hypertension (I10) Active confirmed Problem Hyperkalemia (63059606) Hyperkalemia (E87.5) Active confirmed Problem Right upper quadrant pain (512792833) Right upper quadrant abdominal pain (R10.11) Active confirmed Problem Hypertension (73097144) HTN (hypertension) (I10) Active confirmed Problem Hypothyroidism (27078536) Hypothyroidism (acquired) (E03.9) Active confirmed Problem Essential hypertension (80897107) Essential hypertension (I10) Active confirmed Problem Osteopenia (625215464) Osteopenia (M85.80) Active confirmed Problem Personal history of primary malignant neoplasm of breast (886354816) History of breast cancer (Z85.3) Active confirmed Problem Mixed anxiety and depressive disorder (989407096) Depression with anxiety (F41.8) Active confirmed Problem Lymphedema (19489148) Lymphedema (I89.0) Active confirmed Problem Skin cancer of nose (C44.301) Active confirmed Problem Fibromyalgia (182380717) Fibromyalgia (M79.7) Active confirmed Problem Mixed hyperlipidemia (824137057) Mixed hyperlipidemia (E78.2) Active confirmed Problem Gastroesophageal reflux disease (985130384) GERD without esophagitis (K21.9) Active confirmed Problem History of polyp of colon (situation) (797591495) History of colon polyps (Z86.010) Active confirmed Problem Constipation (86437158) Constipation, unspecified constipation type (K59.00) Active confirmed Problem Gastroesophageal reflux disease without esophagitis (146001012) Gastroesophageal reflux disease without esophagitis (K21.9) Active confirmed Problem Acquired hypothyroidism (385946915) Acquired hypothyroidism (E03.9) Active confirmed Problem Reactive depression (situational) (95782438) Situational depression (F43.21) Active confirmed Problem Stress at home (952505620) Stress at home (F43.9) Active confirmed Problem Renal insufficiency (027834962) Renal insufficiency (N28.9) Active confirmed Problem Mammography abnormal (919103851) Abnormal mammogram of left breast (R92.8) Active confirmed Problem Iron deficiency anemia (52750194) Other iron deficiency anemia (D50.8) Active confirmed Problem Obese class II (784745374400812) BMI 39.0-39.9,adult (Z68.39) Active confirmed Problem Ductal carcinoma (78515848) Ductal carcinoma (C80.1) Active confirmed Problem Seasonal allergic rhinitis (246469300) Seasonal allergic rhinitis, unspecified allergic rhinitis trigger (J30.2) Active confirmed Problem Osteoarthritis (825182590) Osteoarthritis, unspecified osteoarthritis type, unspecified site (M19.90) Active confirmed Problem History of excision of intestinal structure (622731296) S/P cholecystectomy (Z90.49) Active confirmed Problem History of psychiatric disorder (706837152) History of posttraumatic stress disorder (PTSD) (Z86.59) Active confirmed Problem Fibrocystic breast changes (44215798) Fibrocystic breast disease (FCBD), unspecified laterality (N60.19) Active confirmed Problem Asthma without status asthmaticus (88007381) Asthmatic bronchitis without complication, unspecified asthma severity, unspecified whether persistent (J45.909) Active confirmed Problem Chronic kidney disease stage 3B (disorder) (228513980) Chronic renal impairment, stage 3b (N18.32) Active confirmed Vital Signs Heart Rate 92 /min 03/27/2025 Blood pressure diastolic 60 mm Hg 03/27/2025 Height 62.75 in 03/27/2025 Blood pressure systolic 150 mm Hg 03/27/2025 Weight 219.8 lbs 03/27/2025 BMI 39.24 kg/m2 03/27/2025 Encounters Encounter Location Date Provider Diagnosis [facility] [address] [place] [id number] 04/25/2024 Brigida Anton SOB (shortness of breath) R06.02 ; Lesion of nose J34.89 ; HTN (hypertension) I10 ; Leg swelling M79.89 and Lesion of lower extremity L98.9 [facility] [address] [place], [place] [id number] 05/09/2024 Brigida Anton Renal insufficiency N28.9 ; Essential hypertension I10 and Leg swelling M79.89 [facility] [address] [place] [id number] 06/06/2024 Brigida Anton Renal insufficiency N28.9 ; Essential hypertension I10 and Leg swelling M79.89 [facility] [address] [place], [place] [id number] 07/18/2024 Brigida Anton Edema R60.9 and Essential hypertension I10 [facility] [address] [place] [id number] 08/15/2024 Jennyfer Whyte Essential hypertensi on I10 ; Renal insufficiency N28.9 and Skin cancer of nose C44.301 [facility] [address] [place], [place] [id number] 10/03/2024 Jennyfer Whyte Chronic renal impairment, stage 3b N18.32 ; Essential hypertension I10 ; Depression with anxiety F41.8 ; Fibromyalgia M79.7 and History of breast cancer Z85.3 [facility] [address] [place] [id number] 12/26/2024 Jennyfer Whyte Essential hypertensi on I10 ; Osteoarthritis, unspecified osteoarthritis type, unspecified site M19.90 ; Fibromyalgia M79.7 ; Seasonal allergic rhinitis, unspecified allergic rhinitis trigger J30.2 ; Renal insufficiency N28.9 ; History of breast cancer Z85.3 ; Hyperkalemia E87.5 ; Lymphedema I89.0 and Osteopenia M85.80 [facility] [address] [facility] [address] [place], [place] [id number] 03/27/2025 Jennyfer Whyte Essential hypertensi on I10 ; Depression with anxiety F41.8 ; Stress at home F43.9 ; History of posttraumatic stress disorder (PTSD) Z86.59 ; Localized edema R60.0 ; BMI 39.0-39.9,adult Z68.39 ; Renal insufficiency N28.9 ; Intertrigo L30.4 ; Osteopenia, unspecified location M85.80 ; History of tobacco use Z87.891 ; Acquired hypothyroidism E03.9 and Mixed hyperlipidemia E78.2 [facility] [address] [place], [place] [id number] 04/20/2024 Denny [place] Depression with anxi ety F41.8 [facility] [address] [place], [place] [id number] 05/02/2024 Brigida Anton SOB (shortness of breath) R06.02 and Leg swelling M79.89 [facility] [address] [place], [place] [id number] 06/27/2024 Jennyfer Whyte Essential hypertensi on I10 [facility] [address] [place], [place] [id number] 07/19/2024 Brigidadenia Anton Essential hypertensi on I10 and Edema R60.9 [facility] [address] [place], [place] [id number] 08/16/2024 Jennyfer Whyte Renal insufficiency N28.9 [facility] [address] [place], [place] [id number] 08/22/2024 Jennyfer Whyte [facility] [address] [facility] [address] [place], [place] [id number] 08/23/2024 Denny [place] Depression with anxi ety F41.8 [facility] [address] [facility] [address] [place], [place] [id number] 08/26/2024 Jennyfer Whyte [facility] [address] [place], [place] [id number] 09/03/2024 Jennyfer Whyte [facility] [address] [place], [place] [id number] 09/20/2024 J Austin Whyte Depression with anxi ety F41.8 [facility] [address] [facility] [address] [place], [place] [id number] 10/04/2024 Jennyfer Whyte Edema R60.9 [facility] [address] [facility] [address] [place], [place] [id number] 12/30/2024 Jennyfer Whyte [facility] [address] [facility] [address] [place], [place] [id number] 01/02/2025 Jennyfer Whyte Depression with anxi ety F41.8 [facility] [address] [facility] [address] [place], [place] [id number] 02/22/2025 Jennyfer Whyte Assessments Encounter Date Diagnosis (ICD Code) Assessment Notes Treatment Notes Treatment Clinical Notes Section Notes 04/20/2024 Depression with anxiety (ICD-10 - F41.8) 04/25/2024 SOB (shortness of breath) (ICD-10 - R06.02) 05/02/2024 SOB (shortness of breath) (ICD-10 - R06.02) 05/02/2024 Leg swelling (ICD-10 - M79.89) 05/09/2024 Essential hypertension (ICD-10 - I10) was only taking 25 mg bid; will take 50mg in AM and 25 mg in PM as discussed at last visit 05/09/2024 Renal insufficiency (ICD-10 - N28.9) 04/25/2024 Lesion of nose (ICD-10 - J34.89) derm referral 06/06/2024 Essential hypertension (ICD-10 - I10) due to the persistant leg edema will decrease Amlodipine and increase losartan to 50mg bid 06/06/2024 Renal insufficiency (ICD-10 - N28.9) will repeat labs at next visit 06/27/2024 Essential hypertension (ICD-10 - I10) 07/18/2024 Edema (ICD-10 - R60.9) 07/18/2024 Essential hypertension (ICD-10 - I10) will continue tyo monitor BP at home 08/15/2024 Renal insufficiency (ICD-10 - N28.9) 08/16/2024 Renal insufficiency (ICD-10 - N28.9) 08/23/2024 Depression with anxiety (ICD-10 - F41.8) 09/20/2024 Depression with anxiety (ICD-10 - F41.8) 10/03/2024 Essential hypertension (ICD-10 - I10) 07/19/2024 Essential hypertension (ICD-10 - I10) 08/15/2024 Essential hypertension (ICD-10 - I10) 10/03/2024 Chronic renal impairment, stage 3b (ICD-10 - N18.32) [facility] 10/04/2024 Edema (ICD-10 - R60.9) 12/26/2024 Essential hypertension (ICD-10 - I10) 12/26/2024 Osteoarthritis, unspecified osteoarthritis type, unspecified site (ICD-10 - M19.90) 01/02/2025 Depression with anxiety (ICD-10 - F41.8) 03/27/2025 Essential hypertension (ICD-10 - I10) 03/27/2025 Depression with anxiety (ICD-10 - F41.8) 12/26/2024 Fibromyalgia (ICD-10 - M79.7) 08/15/2024 Skin cancer of nose (ICD-10 - C44.301) 10/03/2024 Depression with anxiety (ICD-10 - F41.8) 03/27/2025 Stress at home (ICD-10 - F43.9) 07/19/2024 Edema (ICD-10 - R60.9) 06/06/2024 Leg swelling (ICD-10 - M79.89) is adjusting her foods 05/09/2024 Leg swelling (ICD-10 - M79.89) is adjusting her foods 04/25/2024 HTN (hypertension) (ICD-10 - I10) will increase Losartan; discussed low salt diet; encouraged exercising; suggested simple walking program and chair exercises 04/25/2024 Leg swelling (ICD-10 - M79.89) will get new pressure hose that do not act like a tourniquet 03/27/2025 History of posttraumatic stress disorder (PTSD) (ICD-10 - Z86.59) 12/26/2024 Seasonal allergic rhinitis, unspecified allergic rhinitis trigger (ICD-10 - J30.2) 10/03/2024 Fibromyalgia (ICD-10 - M79.7) 12/26/2024 Renal insufficiency (ICD-10 - N28.9) 03/27/2025 Localized edema (ICD-10 - R60.0) 10/03/2024 History of breast cancer (ICD-10 - Z85.3) 04/25/2024 Lesion of lower extremity (ICD-10 - L98.9) 03/27/2025 BMI 39.0-39.9,adult (ICD-10 - Z68.39) 12/26/2024 History of breast cancer (ICD-10 - Z85.3) 12/26/2024 Hyperkalemia (ICD-10 - E87.5) 03/27/2025 Renal insufficiency (ICD-10 - N28.9) 03/27/2025 Intertrigo (ICD-10 - L30.4) 12/26/2024 Lymphedema (ICD-10 - I89.0) 12/26/2024 Osteopenia (ICD-10 - M85.80) 03/27/2025 Osteopenia, unspecified location (ICD-10 - M85.80) 03/27/2025 History of tobacco use (ICD-10 - Z87.891) 03/27/2025 Acquired hypothyroidism (ICD-10 - E03.9) 03/27/2025 Mixed hyperlipidemia (ICD-10 - E78.2) Plan Of Treatment Pending Test Test Name Order Date Echocardiogram 05/02/2024 DEXA Hip and Spine 03/27/2025 CT Scan : Chest, low dose 03/27/2025 Next Appt Details Provider Name:Jennyfer Avila Shukri er, 05/29/2025 10:30:00 AM, [address] [facility] [address] [facility], [address], [place], [place], [id number], Insurance Providers Payer Name Payer Address Payer Phone Subscriber Number Group Number Insured Name Patient Relationship to Insured Coverage Start Date Coverage End Date [employer] (MEDICAR E) [address] [address] [place] [address] [id number] TOÑO THOMAS Self - patient is the insured Medications Administered Medication Instructions Date of Administration Dosage Notes Dexamethasone 06/05/2009 1 mL Medical (General) History Medical History History ICD Code neg Cardiolyte GXT 08/19 neg cardiolyte 07/19/09, EF=77% HBP Diverticulosis Anxiety disorder GERD Fibromyalgia ABNORMAL MAMMOGRAM Flu shot at [facility] 2016 last chemo 05/12/19 radiation 06/06/19 COVID 19 Moderna vaccine x2, last was 06/18/2021 Normal GXT COVID Booster 08/02/2021 left Invasive ductal cancer Surgical History Surgery Date(Month/Year) tubal ligation Cataract surgery L eye Jan 19 2014 Cataract surgery R eye Feb 09 2014 cataract, both eyes lumpectomy on left breast at [facility] with Dr Carlos 02/09/19 port placed 03/09/19 Cholecystectomy, Dr. Carlos, [facility] 2 Resection BCC of nose 08/03/2024
--- OUTSIDE RECORDS SUMMARY | 2025-04-10 14:33 | XMS_ITS | CCD ---
Author Name Interface, [id number] lity Address [address] [place] [address] Organization [facility] Address [address] [place], [place] [address] Care Team Providers Care Tubing Mill Setter Name Role Phone Noel WEST, [place] Unavailable Unavailable Allergies and Adverse Reactions Medication/Group Name Reaction Severity Date Sulfa (Sulfonamide Antibiotics) 01/18/2019 Reason for Visit [employer] [facility] DR. MARTE Functional Status Date Name Score 01/18/2019 ECOG performance status - grade 0 0 Medications Date Name Route Dose Frequency Instructions Start Date End Date Status Alprazolam Oral orally 0.5 mg 3 times p er day prn anxiety active Esomeprazole (Magnesium) Oral Delayed Release Capsule orally 40.0 mg daily active Duloxetine Oral Delayed Release orally 60.0 mg daily acti ve Fexofenadine-Pseudo ephedrine Oral 12 hr Tab 60 mg-120 mg orally 1.0 every 12 hours prn active Cholecalciferol [place] [address].0 unit daily active Citalopram Oral orally 10.0 mg daily active Clonidine Oral orally 0.1 mg 2 times pe r day active Aspirin Oral orally 81.0 mg daily act justyna Pravastatin Sodium Oral orally 20.0 mg daily active Amlodipine-Benazepr il Oral 5 mg-20 mg orally 1.0 daily a ctive Social History Date Name Value Sex Female
== END 2025-04-10 23:59 | disposition home or self-care (01) ==
LOC: RAD 14:28
PROVIDERS: PCP Family Medicine; Visit Provider Family Medicine
DX: R91.8 Other nonspecific abnormal finding of lung field (principal); Z13.9 Encounter for screening, unspecified; Z87.891 Personal history of nicotine dependence
CPT/HCPCS: 71271

== ENCOUNTER 2025-04-18 09:21 | Outpatient (CLI) | payer MEDICARE, SELFPAY ==
--- OUTSIDE RECORDS SUMMARY | 2024-12-02 07:30 | XMS_ITS ---
[facility] [address] [place] [phone] Care Team Providers Care Toxicology Supervisor Name Role Phone Jennyfer Whyte Primary Care Provider Allergies Allergen (clinical drug ingredient) Drug/Non Drug Allergy documented on EMR Reaction Allergy Type Onset Date Status Steroids STEROIDS (uncoded) make patient nervous Allergy Active celecoxib CeleBREX Unknown Drug Allergy Active oxaprozin Daypro Unknown Drug Allergy Active nabumetone Relafen DS Unknown Drug Allergy Activ e Iodinated contrast media (substance) Iodinated Contrast Media blisters on tongue and lips Drug Allergy Active Substance with sulfonamide structure and antibacterial mechanism of action (substance) Sulfa Antibiotics Unknown Drug Allergy Active REASON FOR VISIT checkup, Needs low dose chest CT, colon cancer screening, & Prevnar vaccine Encounters Encounter Location Date Provider Diagnosis [place] [address] [place] [phone] 12/02/2024 Jennyfer Whyte Plan Of Treatment Next Appt Details Provider Name:Jennyfer Watt er, 05/29/2025 10:30:00 AM, [address], [address], [place], [phone], Progress Notes * TOÑO THOMAS LDOB: (75 yo F)Acc No.[id number]:12/02/2024 Progress Notes Patient: TOÑO THORNE David Provider: Jennyfer Whyte M.D. :1950 A ge:74 Y S ex:Female Date:12/02/2024 Address:[facility] [address] [facility] [place], [id number] Subjective: * Chief Complaints: * 1 . Checkup. 2. Needs low dose chest CT, colon cancer screening, & Prevnar vaccine. * ROS: D ERMATOLOGY: no R sonido. n o H melanie. G ASTROENTEROLOGY: no N ausea. n o V omiting. n o D iarrhea.? U ROLOGY: no D ifficulty urinating. n o B lood in urine. * Medical History: n eg Cardiolyte GXT 08/19, neg cardiolyte 07/19/09, EF=77%, HBP, Diverticulosis, Anxiety disorder, GERD, Fibromyalgia, ABNORMAL MAMMOGRAM, Flu shot at [place] 2015, Last chemo 05/12/19, Radiation 06/06/19, COVID 19 Moderna vaccine x2, last was 11/02/2020, 06/18/2021 Normal GXT, COVID Booster 08/02/2021, left Invasive ductal cancer . * Surgical History: t ubal ligation , Cataract surgery L eye Jan 19 2014, Cataract surgery R eye Feb 09 2014, cataract, both eyes , lumpectomy on left breast at [facility] with Dr Carlos 02/09/19, port placed 03/09/19, Cholecystectomy, Dr. Carlos, [facility] 08/03/22, Resection BCC of nose 08/03/2024. * Family History: F ather: , emphysema. M other: , diabetes, diagnosed with Diabetes. S iblings: brother with diabetes, sisters with lung disease, one with small cell lung cancer, sister with heart attack. C hildren: no children. 2 brother(s) , 5 sister(s) . . * Social History: C URRENT TOBACCO USE S moking Status: Patient does smoke, packs per day: 0.5, Smoking preference: cigarettes. C affeine: no, frequency:. Home smoke detector use: yes. Marital Status: . Past smoking status: yes, Smoking status: Patient does smoke, Number Cigarettes per day: 15. Alcohol: no. * Allergies: R elafen DS, Daypro, CeleBREX, Sulfa Antibiotics, STEROIDS: make patient nervous, Iodinated Contrast Media: blisters on tongue and lips. Objective: * Vitals: Assessment: Plan: * Treatment: * Images: Billing Information: * Visit Code: * Procedure Codes: * Electronic signature of Jennyfer Whyte MD on 04/18/2025 at 09:24 AM EDT Sign off status: Pending * Provider: Jennyfer Whyte M.D. Date: 0 12/02/2024 Generated for Jennifer del real/Tammie/Stephaniesmitting on: 0 04/18/2025 09:24 AM EDT
--- OUTSIDE RECORDS SUMMARY | 2024-12-26 10:00 | XMS_ITS ---
Author Organization [facility] Address [address] [facility] [address] [place] [phone] Care Team Providers Care Industrial Manufacturing Technician Name Role Phone Jennyfer Whyte Primary Care [...] (substance) Sulfa Antibiotics Unknown Drug Allergy Active Results Component Value Reference Range Notes P-Basic Metabolic Panel (BMP ) Reviewed date:12/30/2024 10:49:36 AM Interpretation:creat 1.32, eGFR 43 Performing Lab: Notes/Report: Test performed by [employer], [employer] [address] [place] [address] , [address], [place] [address] Pio Paiz MD, Bakery Deliverer CLIA: [id number] Sodium 140 135-145 mmol/L Potassium 4.4 3.5-5.3 mmol/L Chloride 102 97-108 mmol/L CO2 26 22-32 mmol/L Glucose 93 65-99 mg/dL BUN 18 8-23 mg/dL Creatinine 1.32 0.50-1.00 mg/dL Calcium 10.1 8.6-10.4 mg/dL eGFR by Creatinine 43 >59 mL/min/1.73m2 REASON FOR VISIT F/U Medications Medication SIG (Take, Route, Frequency, Duration) Notes Start Date End Date Status Losartan Potassium 50 MG 1/2 tablet Oral ly Two times a day; Duration: 90 days Active Risedronate Sodium 35 MG TAKE 1 TABLET B Y MOUTH ONCE A WEEK.. AT LEAST 30 MINUTES BEFORE THE FIRST FOOD OR DRINK, OTHER THAN WATER, OF THE DAY ORALLY; Duration: 28 Active DULoxetine HCl 60 MG TAKE 1 CAPSULE BY M OUTH ONCE DAILY; Duration: 90 Active amLODIPine Besylate 5 MG TAKE 1 TABLET B Y MOUTH TWICE A DAY; Duration: 90 Active cloNIDine HCl 0.2 MG TAKE 1 TABLET BY MO [facility] AT BEDTIME; Duration: 90 Active Ventolin HFA 108 (90 Base) MCG/ACT 1 puff as needed Inhalation bid and q4h prn Active ALPRAZolam 0.5 MG 1 tab(s) orally 3 ti mes a day 09/25/2024 Active Lasix 20 MG 1 tablet Orally Once a day as needed 07/19/2024 Active buPROPion HCl ER (XL) 150 MG TAKE 1 TABLET BY MOUTH TWICE DAILY; Duration: 90 Active Jardiance 10 MG 1 tablet Orally Once a day; Duration: 30 day(s) 10/03/2024 Active Aspirin Adult Low Dose 81 MG 1 tab(s) orally once a day Active FiberCon 2 OR 3 P.O. Q DAY 01/20/2022 A ctive Exemestane 25 MG 1 tablet with a meal Orally Once a day; Duration: 30 day(s) Active Vitamin D3 125 MCG (5000 UT) 1 cap(s) orally once a day; Duration: 30 day(s) Active Vital Signs Blood pressure systolic 140 mm Hg 12/27/19 25 Blood pressure diastolic 62 mm Hg 025 Heart Rate 89 /min 12/26/2024 Height 62.75 in 12/26/2024 Weight 217.6 lbs 12/26/2024 BMI 38.85 kg/m2 12/26/2024 Encounters Encounter Location Date Provider Diagnosis [facility]ERESA[facility]Joao 1210 [facility] [address] [place] [phone] 12/26/2024 Jennyfer Whyte Essential hypertensi on I10 ; Osteoarthritis, unspecified osteoarthritis type, unspecified site M19.90 ; Fibromyalgia M79.7 ; Seasonal allergic rhinitis, unspecified allergic rhinitis trigger J30.2 ; Renal insufficiency N28.9 ; History of breast cancer Z85.3 ; Hyperkalemia E87.5 ; Lymphedema I89.0 and Osteopenia M85.80 Assessments Encounter Date Diagnosis (ICD Code) Assessment Notes Treatment Notes Treatment Clinical Notes Section Notes 12/26/2024 Essential hypertension (ICD-10 - I10) 12/26/2024 Osteoarthritis, unspecified osteoarthritis type, unspecified site (ICD-10 - M19.90) 12/26/2024 Fibromyalgia (ICD-10 - M79.7) 12/26/2024 Seasonal allergic rhinitis, unspecified allergic rhinitis trigger (ICD-10 - J30.2) 12/26/2024 Renal insufficiency (ICD-10 - N28.9) 12/26/2024 History of breast cancer (ICD-10 - Z85.3) 12/26/2024 Hyperkalemia (ICD-10 - E87.5) 12/26/2024 Lymphedema (ICD-10 - I89.0) 12/26/2024 Osteopenia (ICD-10 - M85.80) Plan Of Treatment Medication Medication Name Sig Start Date Stop Date Notes Risedronate Sodium 35 MG TAKE 1 TABLET B Y MOUTH ONCE A WEEK.. AT LEAST 30 MINUTES BEFORE THE FIRST FOOD OR DRINK, OTHER THAN WATER, OF THE DAY ORALLY; Duration: 28 Next Appt Details Follow Up: 3 Months, Reason: Provider Name:Jennyfer Watt er, 05/29/2025 10:30:00 AM, [address] [facility], [address] [place] [address], [phone], Progress Notes * TOÑO THOMAS LDOB: 2 (75 yo F)Acc No.[id number]:12/26/2024 Progress Notes Patient: TOÑO THORNE Provider: Jennyfer Whyte M.D. :1950 A ge:74 Y S ex:Female Date:12/26/2024 Address:[address] [id number] Subjective: * Chief Complaints: * 1 . F/U. * HPI: C ardiology: The patient is here today for a check up on Hypertension and Hypothyroidism. Pt states she is doing about the same. Pt states she is still having pain in both knees. Pt states she is having a lot of pain in the right shoulder over the past 2-3 months. Pt states she is having numbness and tingling in the right wrist and hand. Pt states when she reaches with the right arm she has pain shoot up to the right elbow. Denies : Chest Pain. D enies : Short of Breath. D enies : Dizziness. D enies : Palpitations. c/o edema and has not been taking Furosemide. * ROS: D ERMATOLOGY: no R sonido. [...] eyes , lumpectomy on left breast at [facility] with Dr Carlos 02/09/19, port placed 03/09/19, Cholecystectomy, Dr. Carlos, [facility] 08/03/22, Resection BCC of nose 08/03/2024. * [...] Cigarettes per day: 15. Alcohol: no. * Medications: T aking Exemestane 25 MG Tablet 1 tablet with a meal Orally Once a day , Taking FiberCon 2 OR 3 P.O. Q DAY , Taking Vitamin D3 125 MCG (5000 UT) Capsule 1 cap(s) orally once a day , Taking Aspirin Adult Low Dose 81 MG Tablet Delayed Release 1 tab(s) orally once a day , Taking Ventolin HFA 108 (90 Base) MCG/ACT Aerosol Solution 1 puff as needed Inhalation bid and q4h prn , Taking Risedronate Sodium 35 MG Tablet TAKE 1 TABLET BY MOUTH ONCE A WEEK.. AT LEAST 30 MINUTES BEFORE THE FIRST FOOD OR DRINK, OTHER THAN WATER, OF THE DAY ORALLY , Taking buPROPion HCl ER (XL) 150 MG Tablet Extended Release 24 Hour TAKE 1 TABLET BY MOUTH TWICE DAILY , Taking Lasix 20 MG Tablet 1 tablet Orally Once a day as needed , Taking ALPRAZolam 0.5 MG Tablet 1 tab(s) orally 3 times a day , Taking Jardiance 10 MG Tablet 1 tablet Orally Once a day , Taking cloNIDine HCl 0.2 MG Tablet TAKE 1 TABLET BY MOUTH AT BEDTIME , Taking amLODIPine Besylate 5 MG Tablet TAKE 1 TABLET BY MOUTH TWICE A DAY , Taking DULoxetine HCl 60 MG Capsule Delayed Release Particles TAKE 1 CAPSULE BY MOUTH ONCE DAILY , Taking Losartan Potassium 50 MG Tablet 1/2 tablet Orally Two times a day , Medication List reviewed and reconciled with the patient * Allergies: R elafen DS, Daypro, CeleBREX, Sulfa Antibiotics, STEROIDS: make patient nervous, Iodinated Contrast Media: blisters on tongue and lips. Objective: * Vitals: W t:217.6, Temp:98.6, BP:140/62, HR:89, O2 Sat:97% on RA, Nurse:MIGUELINA, Ht: 62.75, BMI:38.85. * Examination: G eneral Examination: General Appearance: N AD. H EENT: h ealing repair of the right side of the nose . O ral cavity: n o lesions, mucosa moist and WNL, no erythema. N roma: s upple, no lymphadenopathy. C hest: n ormal shape and expansion. H eart: R SR. L ungs: c lear to auscultation. A bdomen: soft and nontender.?Neurologic Exam: I ntact, gait normal, median, radial, ulnar strength intact. S kin: n ormal, no rash. P eripheral pulses: n ormal . E xtremities: n o leg edema.? Assessment: * Assessment: 1. E ssential hypertension - I10 (Primary) 2 . O steoarthritis, unspecified osteoarthritis type, unspecified site - M19.90 3 . F ibromyalgia - M79.7 ? 4 . S easonal allergic rhinitis, unspecified allergic rhinitis trigger - J30.2 & #160; 5 . R enal insufficiency - N28.9 6 . H istory of breast cancer - Z85.3 7 . H yperkalemia - E87.5 8 . L ymphedema - I89.0 ? 9 . O steopenia - M85.80 Plan: * Treatment: Value Reference Range B UN 18 8-23 - mg/dL * C alcium 10.1 8.6-10.4 - mg/dL * C hloride 102 97-108 - mmol/L * C O2 26 22-32 - mmol/L * C reatinine 1.32 H 0.50-1.00 - mg/dL * G lucose 93 65-99 - mg/dL * P otassium 4.4 3.5-5.3 - mmol/L * S odium 140 135-145 - mmol/L * e GFR by Creatinine 43 L >59 - mL/min/1.73m2 * Jenny Adame 12/30/2024 10: 49:30 AM > See phone encounter 2.?Osteopenia? Refill Risedronate Sodium Tablet, 35 MG, TAKE 1 TABLET BY MOUTH ONCE A WEEK.. AT LEAST 30 MINUTES BEFORE THE FIRST FOOD OR DRINK, OTHER THAN WATER, OF THE DAY ORALLY, 28, 4 Tablet, Refills 2.? * Procedure Codes: G 2211 Complex e/m visit add on, 3077F SYST BP = 140 MM HG6 IT, 3078F DIAST BP < 80 MM HG * Follow Up: 3 Months * Images: Billing Information: * Visit Code: 07858 Office Visit, Est Pt., Level 4. * Procedure Codes: G2211 Complex e/m visit add on. 3077F SYST BP = 140 MM HG6 IT. 3078F DIAST BP < 80 MM HG. * Electronic signature of Jennyfer Whyte MD on 04/18/2025 at 09:24 AM EDT Sign off status: Pending * Provider: Jennyfer Whyte M.D. Date: 0 12/26/2024 Generated for Jennifer del real/Tammie/eTransmitting on: 0 04/18/2025 09:24 AM EDT History and Physical Notes * HPI (History of Present Illness) Category Sub-Category Detail Notes Category Not es Cardiology Short of Breath c/o edema an d has not been taking Furosemide. Chest Pain Palpitations Dizziness Examination Category Sub-Category Detail Notes Category Not es General Examination HEENT: healing repa ir of the right side of the nose Heart: RSR Lungs: clear to auscultatio n Abdomen: soft and nontender Extremities: no leg edema General Appearance: NAD Skin: normal, no rash Neurologic Exam: Intact, gait normal, median, radial, ulnar strength intact Neck: supple, no lymphaden opathy Oral cavity: no lesions, mucosa m oist and WNL, no erythema Peripheral pulses: normal Chest: normal shape and exp ansion
--- OUTSIDE RECORDS SUMMARY | 2025-03-27 07:00 | XMS_ITS ---
Author Organization [facility] Address [address] [facility] [address] [place] [phone] Care Team Providers Care Box Spinner Name Role Phone Jennyfer Whyte Primary Care Provider [phone] Allergies Allergen (clinical drug ingredient) Drug/Non Drug [...] Active Results Component Value Reference Range Notes CT Scan : Chest, low dose (N ot yet reviewed by provider) Interpretation:nothing suspicious, annual f/u Performing Lab: Notes/Report: nothing suspicious, annual f/u REASON FOR VISIT 3 month f/u, Needs mammogram in April, bone density screening, & low dose chest CT Medications Medication SIG (Take, Route, Frequency, Duration) Notes Start Date End Date Status Clotrimazole-Betamethasone 1-0.05 % 1 application Externally Twice a day; Duration: 30 days 03/27/2025 Active Jardiance 10 mg take 1 tablet orally once a day; Duration: 30 days Active Losartan Potassium 50 MG TAKE 1/2 TABLET BY MOUTH TWO TIMES A DAY; Duration: 90 Active amLODIPine Besylate 5 MG TAKE 1 TABLET B Y MOUTH TWICE A DAY; Duration: 90 Active cloNIDine HCl 0.2 MG TAKE 1 TABLET BY MO UT AT BEDTIME; Duration: 90 Active DULoxetine HCl 60 MG TAKE 1 CAPSULE BY M OUTH ONCE DAILY; Duration: 90 Active ALPRAZolam 0.5 MG 1 tab(s) orally 3 ti mes a day 01/02/2025 Active Risedronate Sodium 35 MG TAKE 1 TABLET B Y MOUTH ONCE A WEEK.. AT LEAST 30 MINUTES BEFORE THE FIRST FOOD OR DRINK, OTHER THAN WATER, OF THE DAY ORALLY; Duration: 28 Active Lasix 20 MG 1 tablet Orally Once a day as needed 07/19/2024 Active buPROPion HCl ER (XL) 150 MG TAKE 1 TABLET BY MOUTH TWICE DAILY; Duration: 90 Active Ventolin HFA 108 (90 Base) MCG/ACT 1 puff as needed Inhalation bid and q4h prn Activ e Aspirin Adult Low Dose 81 MG 1 tab(s) orally once a day A ctive Vitamin D3 125 MCG (5000 UT) 1 cap(s) orally once a day; Duration: 30 day(s) Active FiberCon 2 OR 3 P.O. Q DAY 01/20/2022 A ctive Exemestane 25 MG 1 tablet with a meal Orally Once a day; Duration: 30 day(s) Active Problems Problem Type SNOMED Code ICD Code Onset Dates Problem Status W/U Status Risk Notes Problem Stress at home (209722326) Stress at home (F43.9) Active confirmed Problem Obese class II ([id number] [id number]) BMI 39.0-39.9,jenni lt (Z68.39) Active confirmed Vital Signs Blood pressure systolic 150 mm Hg 03/27/20 25 Blood pressure diastolic 60 mm Hg 025 Heart Rate 92 /min 03/27/2025 Height 62.75 in 03/27/2025 Weight 219.8 lbs 03/27/2025 BMI 39.24 kg/m2 03/27/2025 Encounters Encounter Location Date Provider Diagnosis [facility] [address] [place], [place] [phone] 03/27/2025 Jennyfer Whyte Essential hypertensi on I10 ; Depression with anxiety F41.8 ; Stress at home F43.9 ; History of posttraumatic stress disorder (PTSD) Z86.59 ; Localized edema R60.0 ; BMI 39.0-39.9,adult Z68.39 ; Renal insufficiency N28.9 ; Intertrigo L30.4 ; Osteopenia, unspecified location M85.80 ; History of tobacco use Z87.891 ; Acquired hypothyroidism E03.9 and Mixed hyperlipidemia E78.2 Assessments Encounter Date Diagnosis (ICD Code) Assessment Notes Treatment Notes Treatment Clinical Notes Section Notes 03/27/2025 Essential hypertension (ICD-10 - I10) 03/27/2025 Depression with anxiety (ICD-10 - F41.8) 03/27/2025 Stress at home (ICD-10 - F43.9) 03/27/2025 History of posttraumatic stress disorder (PTSD) (ICD-10 - Z86.59) 03/27/2025 Localized edema (ICD-10 - R60.0) 03/27/2025 BMI 39.0-39.9,adult (ICD-10 - Z68.39) 03/27/2025 Renal insufficiency (ICD-10 - N28.9) 03/27/2025 Intertrigo (ICD-10 - L30.4) 03/27/2025 Osteopenia, unspecified location (ICD-10 - M85.80) 03/27/2025 History of tobacco use (ICD-10 - Z87.891) 03/27/2025 Acquired hypothyroidism (ICD-10 - E03.9) 03/27/2025 Mixed hyperlipidemia (ICD-10 - E78.2) Plan Of Treatment Medication Medication Name Sig Start Date Stop Date Notes Clotrimazole-Betamethasone 1-0.05 % 1 application Externally Twice a day; Duration: 30 days 03/27/2025 Jardiance 10 mg take 1 tablet orally once a day; Duration: 30 days Pending Test Test Name Order Date DEXA Hip and Spine 03/27/2025 CT Scan : Chest, low dose 03/27/2025 Next Appt Details Follow Up: 2 M, Reason: Provider Name:Jennyfer Watt er, 05/29/2025 10:30:00 AM, [address] [facility], [address] , [place], [place], [phone], Progress Notes * TOÑO PURCELL LDOB: 2 (75 yo F)Acc No.[id number]:03/27/2025 Progress Notes Patient: TOÑO THORNE Provider: Moo Aguillon:1950 A ge:75 Y S ex:Female Date:03/27/2025 Address:[facility], [place], [id number] Subjective: * Chief Complaints: * 1 . 3 month f/u. 2. Needs mammogram in April, bone density screening, & low dose chest CT. * HPI: H PI: 75 year old female presents with c/o Patient is here today for?Pt is here today for a 3 month check up. L eg: c/o Leg edema P t sts the swelling in her legs have been wanting to stay swollen. C onstitutional: c/o weight loss P t sts she would also like to discuss weight loss today as well. c/o stress Pt sts she has been very stressed lately and sts she believes it is due to her BP. P sychology: Poor marital relationship. Now her in ill health. * ROS: D ERMATOLOGY: no R sonido. n o H melanie. G ASTROENTEROLOGY: no N ausea. n o V omiting. n o D iarrhea.? U ROLOGY: no D ifficulty urinating. n o B lood in urine. * Medical History: n eg Cardiolyte GXT 08/19, neg cardiolyte 07/19/09, EF=77%, HBP, Diverticulosis, Anxiety disorder, GERD, Fibromyalgia, ABNORMAL MAMMOGRAM, Flu shot at [facility] 2016, Last chemo 05/12/19, Radiation 06/06/19, COVID 19 Moderna vaccine x2, last was 11/02/2020, 06/18/2021 Normal GXT, COVID Booster 08/02/2021, left Invasive ductal cancer. * Surgical History: t ubal ligation , Cataract surgery L eye Jan 19 2014, Cataract surgery R eye Feb 09 2014, cataract, both eyes , lumpectomy on left breast at [facility] with Dr Carlos 02/09/19, port placed 03/09/19, Cholecystectomy, Dr. Carlos, [facility] 08/03/22, Resection BCC of nose 08/03/2024. * Family History: F ather: , emphysema. M other: , diabetes, diagnosed with Diabetes. S iblings: brother with diabetes, sisters with lung disease, one with small cell lung cancer, sister with heart attack. C giovanna: no children. 2 brother(s) , 5 sister(s) [...] Inhalation bid and q4h prn , Taking buPROPion HCl ER (XL) 150 MG Tablet Extended Release 24 Hour TAKE 1 TABLET BY MOUTH TWICE DAILY , Taking Lasix 20 MG Tablet 1 tablet Orally Once a day as needed , Taking Risedronate Sodium 35 MG Tablet TAKE 1 TABLET BY MOUTH ONCE A WEEK.. AT LEAST 30 MINUTES BEFORE THE FIRST FOOD OR DRINK, OTHER THAN WATER, OF THE DAY ORALLY , Taking ALPRAZolam 0.5 MG Tablet 1 tab(s) orally 3 times a day , Taking Jardiance 10 mg Tablet take 1 tablet orally once a day , Taking DULoxetine HCl 60 MG Capsule Delayed Release Particles TAKE 1 CAPSULE BY MOUTH ONCE DAILY , Taking cloNIDine HCl 0.2 MG Tablet TAKE 1 TABLET BY MOUTH AT BEDTIME , Taking amLODIPine Besylate 5 MG Tablet TAKE 1 TABLET BY MOUTH TWICE A DAY , Taking Losartan Potassium 50 MG Tablet TAKE 1/2 TABLET BY MOUTH TWO TIMES A DAY , Medication List reviewed and reconciled with the patient * Allergies: R elafen DS, Daypro, CeleBREX, Sulfa Antibiotics, STEROIDS: make patient nervous, Iodinated Contrast Media: blisters on tongue and lips. Objective: * Vitals: W t: 219.8, Temp: 98.7, BP: 150/60, HR: 92, O2 Sat: 97% on RA, Nurse: mmh, Ht: 62.75, Repeat BP: 132/64, BMI:39.24. * Examination: G eneral Examination: General Appearance: [...] eripheral pulses: n ormal . E xtremities: l eft 2++ leg edema. Assessment: * Assessment: 1. E ssential hypertension - I10 (Primary) 2 . D epression with anxiety - F41.8 3 . S tress at home - F43.9 4 . H istory of posttraumatic stress disorder (PTSD) - Z86.59 5 . L ocalized edema - R60.0 6 . B PR 39.0-39.9,adult - Z68.39 7 . R enal insufficiency - N28.9 ? 8 . I ntertrigo - L30.4 9 . O steopenia, unspecified location - M85.80 1 0. H istory of tobacco use - Z87.891 1 1. A cquired hypothyroidism - E03.9 1 2. M ixed hyperlipidemia - E78.2 Plan: * Treatment: 2. I ntertrigo Start Clotrimazole-Betamethasone Cream, 1-0.05 %, 1 application, Externally, Twice a day, 30 days, 45 Gram, Refills 1. 3. O steopenia, unspecified location I maging: DEXA Hip and Spine 4.?History of tobacco use?Imaging: CT Scan : Chest, low dose (Performed Date - 04/10/2025)?nothing suspicious, annual f/u* Florence Madrid 03/29/2025 02:0 0:31 PM EDT > no auth required; CPT code 87478; faxed to [facility] Scheduling * Procedure Codes: G 2211 Complex e/m visit add on, G8950 PREHTN/HTN BP DOC INDCD F/U DOC, G8752 MOST RECENT SYSTOLIC BP < 140MM HG, G8754 MOST RECENT DIASTOLIC BP < 90MM HG * Follow Up: 2 M * Images: Billing Information: * Visit Code: 22460 Office Visit, Est Pt., Level 4. * Procedure Codes: G2211 Complex e/m visit add on. G8950 PREHTN/HTN BP DOC INDCD F/U DOC. G8752 MOST RECENT SYSTOLIC BP < 140MM HG. G8754 MOST RECENT DIASTOLIC BP < 90MM HG. * Electronic signature of Jennyfer Whyte MD on 04/18/2025 at 09:24 AM EDT Sign off status: Pending * Provider: Jennyfer Whyte M.D. Date: 0 03/27/2025 Generated for Jennifer del real/Tammie/Stephaniesmitting on: 0 04/18/2025 09:24 AM EDT History and Physical Notes * HPI (History of Present Illness) Category Sub-Category Detail Notes Category Not es Psychology Poor marital relationship. Now her in ill health. Constitutional weight loss Pt sts she would also like to discuss weight loss today as well stress Pt sts she has been very stressed lately and sts she believes it is due to her BP HPI Patient is here today for Pt is here toda y for a 3 month check up Leg Leg edema Pt sts the swell ing in her legs have been wanting to stay swollen Examination Category Sub-Category Detail Notes Category Not es General Examination HEENT: healing repa ir of the right side of the nose Heart: RSR Lungs: clear to auscultatio n Abdomen: soft and nontender Extremities: left 2++ leg edema General Appearance: NAD Skin: normal, no rash Neurologic Exam: Intact, gait normal, median, radial, ulnar strength intact Neck: supple, no lymphaden opathy Oral cavity: no lesions, mucosa m oist and WNL, no erythema Peripheral pulses: normal Chest: normal shape and exp ansion
--- NOTE | 2025-04-18 09:23 | XR_ITS ---
FINAL REPORT CLINICAL HISTORY: OSTEOPENIA COMPARISON: 01/29/2023 FINDINGS: Using L1-4, the bone mineral density of the spine is 1.132 g/cm2, corresponding to T-score of 0.8, within normal limits. Previously was 1.158 with a T-score of 1.0. Using the left hip, the bone mineral density of the femoral neck is 0.742 g/cm2, corresponding to a T-score of -1.0, within normal limits. Previously was 0.755 with a T-score of -0.9. Using the right hip, the bone mineral density of the femoral neck is 0.616 g/cm2, corresponding to a T-score of -2.1, consistent with osteopenia. Previously was 0.625 with a T-score of -2.0. FRAX not reported because the patient is being treated for osteoporosis. NOTE: T-score: Standard deviation compared with peak bone mass of young adult mean. *Following the recommendations of the International Society of Bone densitometry, classification of hip BMD is based on the lower of two T-scores; total hip or femoral neck. IMPRESSION: Normal bone mineral density of the lumbar spine and left hip, with diminished bone mineral density in the right hip consistent with osteopenia. Reviewed, Interpreted and Dictated by Benjamin Evans MD Transcribed by Carey De La O Authenticated and [facility]
--- OUTSIDE RECORDS SUMMARY | 2025-04-18 09:24 | XMS_ITS | Patient Health Record ---
Author Organization [facility] Address [address] [facility] [address] [place] [address] [place] [id number] Care Team Providers Care Manager Wastewater Name Role Phone Jennyfer Whyte Primary Care Provider Nicolle Denny Unavailable [phone] Brigida Anton Unavailable [phone] Allergies Allergen (clinical drug ingredient) Drug/Non Drug [...] Active Results Component Value Reference Range Notes P-Comprehensive Metabolic Pa davis (CMP) Reviewed date:05/02/2024 09:20:24 AM Interpretation:creat 1.29, gfr 44, alk phos 125 Performing Lab: Notes/Report: Test performed by [facility] , [address], [place] [address] Pio Paiz MD, Ward Service Supervisor CLIA: [id number] Sodium 138 135-145 mmol/L Potassium 4.0 3.5-5.3 [...] Negative P-Comprehensive Metabolic Pa davis (CMP) Reviewed date:10/04/2024 09:54:43 AM Interpretation:K+ 5.8, bun 27, Cr 1.56, Ca 11.1, gfr 35, alk phos 131 Performing Lab: Notes/Report: Test performed by [facility] [address] [place] [address] , [address], [place] [address] Pio Paiz MD, Ward Service Supervisor CLIA: [id number] Sodium 141 135-145 mmol/L Potassium 5.8 3.5-5.3 [...] 0.2 <0.2-1.2 mg/dL A/G Ratio 1.6 1.1-2.5 Glycohemoglobin A1c (in hous e) Reviewed date:10/04/2024 09:54:43 AM Interpretation:5.8% Performing Lab: Notes/Report: 5.8% glycohemoglobin 5.8% 5 - 6.5 % P-Basic Metabolic Panel (BMP ) Reviewed date:08/22/2024 01:17:17 PM Interpretation:Cr 1.45, gfr 38 Performing Lab: Notes/Report: Test performed by [facility] [address] [place] [address] [place] [address] Pio Paiz MD, Ward Service Supervisor CLIA: [id number] Sodium 139 135-145 mmol/L Potassium 5.0 3.5-5.3 [...] 44 Performing Lab: Notes/Report: Test performed by [facility] [address] [place] [address] [address] C, [place] [address] Pio Paiz MD, Ward Service Supervisor CLIA: [id number] Sodium 137 135-145 mmol/L Potassium 4.4 3.5-5.3 mmol/L Chloride 99 97-108 mmol/L CO2 29 22-32 mmol/L Glucose 90 65-99 mg/dL BUN 26 8-23 mg/dL Creatinine 1.30 0.50-1.00 mg/dL Calcium 10.5 8.6-10.4 mg/dL eGFR by Creatinine 44 >59 mL/min/1.73m2 P-Comprehensive Metabolic Pa davis (CMP) Reviewed date:07/19/2024 11:42:37 AM Interpretation:bun 24, creat 1.43, gfr 39 Performing Lab: Notes/Report: Test performed by [facility] [address] [place] [address] [place] [address] Pio Paiz MD, Ward Service Supervisor CLIA: [id number] Sodium 135 135-145 mmol/L Potassium 5.1 3.5-5.3 [...] 0.3 <0.2-1.2 mg/dL A/G Ratio 1.4 1.1-2.5 CT Scan : Chest, low dose (N ot yet reviewed by provider) Interpretation:nothing suspicious, annual f/u Performing Lab: Notes/Report: nothing suspicious, annual f/u P-Basic Metabolic Panel (BMP ) Reviewed date:12/30/2024 10:49:36 AM Interpretation:creat 1.32, eGFR 43 Performing Lab: Notes/Report: Test performed by [facility], [address] , [address], [place] [address] Pio Paiz MD, Ward Service Supervisor CLIA: [id number] Sodium 140 135-145 mmol/L Potassium 4.4 3.5-5.3 mmol/L Chloride 102 97-108 mmol/L CO2 26 22-32 mmol/L Glucose 93 65-99 mg/dL BUN 18 8-23 mg/dL Creatinine 1.32 0.50-1.00 mg/dL Calcium 10.1 8.6-10.4 mg/dL eGFR by Creatinine 43 >59 mL/min/1.73m2 Medications Medication SIG (Take, Route, Frequency, Duration) [...] 0.2 MG TAKE 1 TABLET BY [facility] AT BEDTIME; Duration: 90 Active DULoxetine HCl [...] Vaccine Route Administration Date Status Comme nts COVID 19 Moderna IM Intramuscular 10/05/2020 Administered COVID 19 Moderna Unknown 11/02/2020 Administered COVID 19 Moderna Unknown 08/02/2021 Administered COVID 19 Moderna Unknown 12/19/2021 Administered DT, 7 YEARS OR OLDER Unknown 11/16/1996 Administered Fluzone High Dose (65yr and older) IM Intramuscular 05/31/2018 Administered Fluzone High Dose (65yr and older) IM Intramuscular 07/29/2019 Administered Fluzone High Dose (65yr and older) IM Intramuscular 06/04/2020 Administered Fluzone High Dose (65yr and older) IM Intramuscular 06/11/2021 Administered Fluzone High Dose (65yr and older) IM Intramuscular 06/29/2023 Administered H1N1 flu vaccine IM Intramuscular 08/21/2009 Administered Hepatitis B (20 and more) Unknown 04/02/2004 Administer ed Hepatitis B (20 and more) Unknown 04/02/2004 Administer ed Hepatitis B (20 and more) Unknown 05/08/2004 Administer ed Hepatitis B (20 and more) Unknown 05/08/2004 Administer ed Hepatitis B (20 and more) Unknown 11/08/2004 Administer ed PNEUMOVAX 23 VACCINE IM Intramuscular 08/04/2016 Administe red Prevnar (PCV13) IM Intramuscular 11/03/2018 Administered Tetanus Tdap-Adacel (over 7yrs) IM Intramuscular 05/24/2010 Administered Tetanus Tdap-Adacel (over 7yrs) Unknown 02/20/2015 Administered xFlu shot-36 months and older IM Intramuscular 08/09/2007 Administered xFlu shot-36 months and older IM Intramuscular 08/01/2008 Administered xFlu shot-36 months and older IM Intramuscular 08/21/2009 Administered xFlu shot-36 months and older IM Intramuscular 05/24/2010 Administered xFluzone Intradermal (18-64yrs)-trivalent ID Intradermal 07/15/2012 Administered Problems Problem Type SNOMED Code ICD Code Onset Dates Problem Status W/U Status Risk Notes Problem Essential hypertension (04712596) Essential (primary) hypertension (I10) Active confirmed Problem Hyperkalemia (16219014) Hyperkalemia (E87.5) Active confirmed Problem Right upper quadrant pain (875500953) Right upper quadrant abdominal pain (R10.11) Active confirmed Problem Hypertension (34102456) HTN (hypertension) (I10) Active confirmed Problem Hypothyroidism (94545556) Hypothyroidism (acquired) (E03.9) Active confirmed Problem Essential hypertension (19993319) Essential hypertension (I10) Active confirmed Problem Osteopenia (424512563) Osteopenia (M85.80) Active confirmed Problem Personal history of primary malignant neoplasm of breast (407064393) History of breast cancer (Z85.3) Active confirmed Problem Mixed anxiety and depressive disorder (292198940) Depression with anxiety (F41.8) Active confirmed Problem Lymphedema (63555902) Lymphedema (I89.0) Active confirmed Problem Skin cancer of nose (C44.301) Active confirmed Problem Fibromyalgia (504956000) Fibromyalgia (M79.7) Active confirmed Problem Mixed hyperlipidemia (350027150) Mixed hyperlipidemia (E78.2) Active confirmed Problem Gastroesophageal reflux disease (705995029) GERD without esophagitis (K21.9) Active confirmed Problem History of polyp of colon (situation) (317220573) History of colon polyps (Z86.010) Active confirmed Problem Constipation (18409891) Constipation, unspecified constipation type (K59.00) Active confirmed Problem Gastroesophageal reflux disease without esophagitis (492220035) Gastroesophageal reflux disease without esophagitis (K21.9) Active confirmed Problem Acquired hypothyroidism (749839712) Acquired hypothyroidism (E03.9) Active confirmed Problem Reactive depression (situational) (68860572) Situational depression (F43.21) Active confirmed Problem Stress at home (847687485) Stress at home (F43.9) Active confirmed Problem Renal insufficiency (242411398) Renal insufficiency (N28.9) Active confirmed Problem Mammography abnormal (743034187) Abnormal mammogram of left breast (R92.8) Active confirmed Problem Iron deficiency anemia (74532557) Other iron deficiency anemia (D50.8) Active confirmed Problem Obese class II (075579752500326) BMI 39.0-39.9,adult (Z68.39) Active confirmed Problem Ductal carcinoma (49352732) Ductal carcinoma (C80.1) Active confirmed Problem Seasonal allergic rhinitis (865830390) Seasonal allergic rhinitis, unspecified allergic rhinitis trigger (J30.2) Active confirmed Problem Osteoarthritis (804116890) Osteoarthritis, unspecified osteoarthritis type, unspecified site (M19.90) Active confirmed Problem History of excision of intestinal structure (756316265) S/P cholecystectomy (Z90.49) Active confirmed Problem History of psychiatric disorder (045879681) History of posttraumatic stress disorder (PTSD) (Z86.59) Active confirmed Problem Fibrocystic breast changes (43792330) Fibrocystic breast disease (FCBD), unspecified laterality (N60.19) Active confirmed Problem Asthma without status asthmaticus (96478978) Asthmatic bronchitis without complication, unspecified asthma severity, unspecified whether persistent (J45.909) Active confirmed Problem Chronic kidney disease stage 3B (disorder) (295483575) Chronic renal impairment, stage 3b (N18.32) Active confirmed Vital Signs Heart Rate 92 /min 03/27/2025 Blood pressure diastolic 60 mm Hg 03/27/2025 Height 62.75 in 03/27/2025 Blood pressure systolic 150 mm Hg 03/27/2025 Weight 219.8 lbs 03/27/2025 BMI 39.24 kg/m2 03/27/2025 Encounters Encounter Location Date Provider Diagnosis [facility] [address] [place] [id number] 04/25/2024 Brigida Anton SOB (shortness of breath) R06.02 ; Lesion of nose J34.89 ; HTN (hypertension) I10 ; Leg swelling M79.89 and Lesion of lower extremity L98.9 [facility] [address] [facility] [address] [place] [id number] 05/09/2024 Brigida Anton Renal insufficiency N28.9 ; Essential hypertension I10 and Leg swelling M79.89 [facility] [address] [place] [id number] 06/06/2024 Brigida Anton Renal insufficiency N28.9 ; Essential hypertension I10 and Leg swelling M79.89 [facility] [address] [place] [id number] 07/18/2024 Brigida Anton Edema R60.9 and Essential hypertension I10 [facility] [address] [place] [id number] 08/15/2024 Jennyfer Whyte Essential hypertensi on I10 ; Renal insufficiency N28.9 and Skin cancer of nose C44.301 [facility] [address] [place], [place] [id number] 10/03/2024 Jennyfer Whyte Chronic renal impairment, stage 3b N18.32 ; Essential hypertension I10 ; Depression with anxiety F41.8 ; Fibromyalgia M79.7 and History of breast cancer Z85.3 [facility] [address] [place] [id number] 12/26/2024 Jennyfer Whyte Essential hypertensi on I10 ; Osteoarthritis, unspecified osteoarthritis type, unspecified site M19.90 ; Fibromyalgia M79.7 ; Seasonal allergic rhinitis, unspecified allergic rhinitis trigger J30.2 ; Renal insufficiency N28.9 ; History of breast cancer Z85.3 ; Hyperkalemia E87.5 ; Lymphedema I89.0 and Osteopenia M85.80 [facility] [address] [facility] [address] [place] [id number] 03/27/2025 Jennyfer Whyte Essential hypertensi on I10 ; Depression with anxiety F41.8 ; Stress at home F43.9 ; History of posttraumatic stress disorder (PTSD) Z86.59 ; Localized edema R60.0 ; BMI 39.0-39.9,adult Z68.39 ; Renal insufficiency N28.9 ; Intertrigo L30.4 ; Osteopenia, unspecified location M85.80 ; History of tobacco use Z87.891 ; Acquired hypothyroidism E03.9 and Mixed hyperlipidemia E78.2 [facility] [address] [facility] [address] [place], [place] [id number] 04/11/2025 Jennyfer Whyte [facility] [address] [facility] [address] [place], [place] [id number] 04/20/2024 Denny [place] Depression with anxi ety F41.8 [facility] [address] [facility] [address] [place], [place] [id number] 05/02/2024 Brigida Anton SOB (shortness of breath) R06.02 and Leg swelling M79.89 [facility] [address] [facility] [address] [place] [id number] 06/27/2024 Jennyfer Whyte Essential hypertensi on I10 [facility] [address] [facility] [address] [place], [place] [id number] 07/19/2024 Brigidadenia Anton Essential hypertensi on I10 and Edema R60.9 [facility] [address] [facility] [address] [place] [id number] 08/16/2024 Jennyfer Whyte Renal insufficiency N28.9 [facility] [address] [facility] [address] [place] [id number] 08/22/2024 Jennyfer Whyte [facility] [address] [facility] [address] [place], [place] [id number] 08/23/2024 Denny [place] Depression with anxi ety F41.8 [facility] [address] [facility] [address] [place] [id number] 08/26/2024 Jennyfer Whyte [facility] [address] [facility] [address] [place] [id number] 09/03/2024 Jennyfer Whyte [facility] [address] [facility] [address] [place], [place] [id number] 09/20/2024 Jennyfer Whyte Depression with anxi ety F41.8 [facility] [address] [facility] [address] [place], [place] [id number] 10/04/2024 Jennyfer Whyte Edema R60.9 [facility] [address] [facility] [address] [place] [id number] 12/30/2024 Jennyfer Whyte [facility] [address] [facility] [address] [place], [place] [id number] 01/02/2025 Jennyfer Whyte Depression with anxi ety F41.8 [facility] [address] [facility] [address] [place], [place] [id number] 02/22/2025 Jennyfer Whyte Assessments Encounter Date Diagnosis [...] renal impairment, stage 3b (ICD-10 - N18.32) [facility] 10/04/2024 Edema (ICD-10 - R60.9) 12/26/2024 Essential hypertension (ICD-10 - I10) 12/26/2024 Osteoarthritis, unspecified osteoarthritis type, unspecified site (ICD-10 - M19.90) 01/02/2025 Depression with anxiety (ICD-10 - F41.8) 03/27/2025 Essential hypertension (ICD-10 - I10) 03/27/2025 Depression with anxiety (ICD-10 - F41.8) 03/27/2025 Stress at home (ICD-10 - F43.9) 12/26/2024 Fibromyalgia (ICD-10 - M79.7) 08/15/2024 Skin cancer of nose (ICD-10 - C44.301) 10/03/2024 Depression with anxiety (ICD-10 - F41.8) 07/19/2024 Edema (ICD-10 - R60.9) 06/06/2024 Leg [...] that do not act like a tourniquet 10/03/2024 Fibromyalgia (ICD-10 - M79.7) 12/26/2024 Seasonal allergic rhinitis, unspecified allergic rhinitis trigger (ICD-10 - J30.2) 03/27/2025 History of posttraumatic stress disorder (PTSD) (ICD-10 - Z86.59) 12/26/2024 Renal insufficiency (ICD-10 - N28.9) 03/27/2025 Localized edema (ICD-10 - R60.0) 10/03/2024 History of breast cancer (ICD-10 - Z85.3) 04/25/2024 Lesion of lower extremity (ICD-10 - L98.9) 12/26/2024 History of breast cancer (ICD-10 - Z85.3) 03/27/2025 BMI 39.0-39.9,adult (ICD-10 - Z68.39) 12/26/2024 Hyperkalemia (ICD-10 - E87.5) 03/27/2025 Renal [...] dose 03/27/2025 Next Appt Details Provider Name:Jennyfer Watt er, 05/29/2025 10:30:00 AM, [address] [facility], [address], [place], [place], [id number], Insurance Providers Payer Name Payer Address Payer Phone Subscriber Number Group Number Insured Name Patient Relationship to Insured Coverage Start Date Coverage End Date [employer] (MEDICAR E) [address] [address] [place] [address] [id number] TOÑO PURCELL Self - patient is the insured Medications Administered Medication Instructions Date of Administration Dosage Notes Dexamethasone 06/05/2009 1 mL Medical (General) History Medical History History ICD Code neg Cardiolyte GXT 12/06 neg cardiolyte 07/19/09, EF=77% HBP Diverticulosis Anxiety [...] both eyes lumpectomy on left breast at [facility] with Dr Carlos 02/09/19 port placed 03/09/19 Cholecystectomy, Dr. Carlos, [facility] 2 Resection BCC of nose 08/03/2024
--- OUTSIDE RECORDS SUMMARY | 2025-04-18 09:24 | XMS_ITS | Clinical Summary ---
Author Organization [facility] Address [address] [place] [address] Care Team Providers Care Construction Flagger Name Role Phone Doni Whyte MD Primary Care Provider [phone] Allergies Active Allergy Reactions Criticality Noted Date [...] Description 01/27/2025 11:20 AM EDT Office Visit [facility] [address] [place] [id number] Kevin Mack MD Renal insufficiency [...] Screening 1950 [facility] Annual Wellness (AWV) 1950 [facility]-/Child/Adol SDOH Screenings 1950 [facility]- SDOH Screenings 01/07/1970 [...] - PCV20 or PCV21) 11/03/2023 11/03/2018, 08/04/2016 [id number] Vaccine ( - season) 2024 12/19/2021, 08/02/2021, [...] patient's age to complete this topic Insurance [facility] MEDICARE Care Teams Construction Flagger Relationship Specialty Start Date End Date Doni Whyte MD [address] [place] [address] PCP - General 10/25/24
--- OUTSIDE RECORDS SUMMARY | 2025-04-18 09:24 | XMS_ITS | CCD ---
Author Name Interface, [id number] lity Address [address] [place] [id number] Organization [facility] Address [address] [place], [place] [id number] Care Team Providers Care Conventional Underwriter Name Role Phone Noel WEST, [place] Unavailable Unavailable Allergies and Adverse Reactions Medication/Group Name Reaction Severity Date Sulfa (Sulfonamide Antibiotics) 01/18/2019 Reason for Visit [facility] DR. MARTE Functional Status Date [...] 12 hours prn active Cholecalciferol Oral orally 17091.0 unit daily active Citalopram Oral orally 10.0 mg daily active Clonidine Oral orally 0.1 mg 2 times pe r day active Aspirin Oral orally 81.0 mg daily act justyna Pravastatin Sodium Oral orally 20.0 mg daily active Amlodipine-Benazepr il Oral 5 mg-20 mg orally 1.0 daily a ctive Social History Date Name Value Sex Female
== END 2025-04-18 23:59 | disposition home or self-care (01) ==
LOC: RAD 09:21
PROVIDERS: PCP Family Medicine; Visit Provider Family Medicine
DX: M85.88 Other specified disorders of bone density and structure, other site (principal)
CPT/HCPCS: 77080

== ENCOUNTER 2025-08-09 11:00 | Outpatient (RCR) | payer MEDICARE, SELFPAY ==
--- NOTE | 2025-07-17 13:32 | [facility]H.PTOPEV ---
PT Evaluation Rehab PT Outpatient Evaluation Start: 07/17/25 10:58 Freq: Status: Active Protocol: Document 07/17/25 10:58 MARICRUZ (Rec: 07/17/25 13:32 MARICRUZ [id number]) E-signed By Leda Dahl, PT Outpatient Therapy Subjective History Subjective History Pt is a 75 y/o female referred to PT for hip pain, mobility impaired and history of shortness of breath. Pt reports chronic R hip pain for ~ 1 year without known trauma or injury. Pt denies having recent imaging of her hips but did have a recent bone scan with findings of R hip osteopenia. Pt reports her left hip started to hurt due to compensating as well but is not as bad as the right hip. Pt reports hip pain has improved with use of her 's rolling walker and using lidocaine patches for 2 weeks. Pt reports she recently transitioned back to ambulating with a SPC but states she feels safer with the walker and would like one with a seat to assist with SOB. Pt reports continued right > left anterolateral hip pain aggravated by prolonged sitting, laying on her sides and prolonged walking. Pt denies clicking, catching, popping, instability, swelling or paresthesia of the hip. Pt reports she plans on starting to set a timer to get up every hour and walk around the house to avoid hip pain due to prolonged sitting. Pt reports she has 2 steps without HR to enter her home with difficulty traversing these but is able to do so with use of her cane and holding onto her door knob. Pt reports her legs feel weak due meniscus tears in her knees due to falling 2 years ago, denies sense of instability. Pt denies falls this year. Pt reports she smoked for 40 years and quit in November although gained 35 lbs. Pt reports shortness of breath with exertion. Pt had a CT denney of her lungs with impression of No suspicious pulmonary nodule or mass. Pt states she gets a CT scan every 2 years due to history of smoking and family history of lung cancer. Medical History: Skin cancer of nose, HTN (hypertension ), Hypothyroidism, Pneumonia, History of COVID-19, Migraine, Osteoarthritis, History of gastroesophageal reflux (GERD), History of anemia, Fibromyalgia, Depression, Breast cancer, right, R hip osteopenia, Neuropathy Vitals at rest: SpO2 96% RA, HR 104 bpm New diagnosis of No: Hx of breast cancer with lumpectomy in 2019 cancer in past 12 months? Chief Complaint Pain Symptom Type Ache,Sharp,Dull Symptoms Relieved By Rest/Positioning,OTC Meds Symptoms Aggravated Sitting,Standing,Physical Activity,Walking By Current Functional Housework,Dressing,Sleeping,Standing,Recreation Limitations Activity,Walking,Stairs,Balance Symptom Description Intermittent Level of pain today 0 (0-10) Pain scale - at its 0 best (0-10) Pain scale - at its 6 worst (0-10) Hip/Knee Eval Gait Observation General Gait Pattern Antalgic Gait Observation Assistive Device Assistive Devices Straight Cane Palpation Tenderness bilateral Hip Palpation Tenderness Findings Hip Palpation R greater trochanter, hip flexor Overall Comment MMT Hip Flexion Strength 4- Good- Grade Hip Abduction 4- Good- Strength Grade Hip Adduction 4- Good- Strength Grade Hip Extension 4- Good- Strength Grade Knee Extension 4+ Good+ Strength Grade Knee Flexion 4+ Good+ Strength Grade ROM left Hip Flexion w/Knee 78 Flexed Active Range of Motion (degrees) Hip External 40 Rotation Active Range of Motion ( degrees) Hip Internal 35 Rotation Active Range of Motion ( degrees) Knee Extension 9 Active Range of Motion (degrees) Knee Flexion Active 90 Range of Motion ( degrees) right Hip Flexion w/Knee 88 Flexed Active Range of Motion (degrees) Hip External 35 Rotation Active Range of Motion ( degrees) Hip Internal 30 p! Rotation Active Range of Motion ( degrees) Knee Extension 0 Active Range of Motion (degrees) Knee Flexion Active 110 Range of Motion ( degrees) Vertigo Eval Balance Testing TUG (sec.): 41 Five Times Sit-to- 24 Stand (5xSTS) in seconds: Lower Extremity Functional Index Activities Today, do you or would you have any difficulty at all with: a.Any of your usual Moderate difficulty work, housework or school activities b. Your usual Quite a bit of difficulty hobbies, recreational or sporting activities c. Getting into or A little bit of difficulty out of the bath d. Walking between Moderate difficulty rooms e. Putting on your No difficulty shoes or socks f. Squatting Extreme difficulty or unable to perform activity g. Lifting an object A little bit of difficulty , like a bag of groceries from the floor h. Performing light Moderate difficulty activities around your home i. Performing heavy Extreme difficulty or unable to perform activity activities around your home j. Getting into or A little bit of difficulty out of a car k. Walking 2 blocks Extreme difficulty or unable to perform activity l. Walking a mile Extreme difficulty or unable to perform activity m. Going up or down Extreme difficulty or unable to perform activity 10 stairs (about 1 flight of stairs) n. Standing for 1 Extreme difficulty or unable to perform activity hour o. Sitting for 1 A little bit of difficulty hour p. Running on even Extreme difficulty or unable to perform activity ground q. Running on uneven Extreme difficulty or unable to perform activity ground r. Making sharp Extreme difficulty or unable to perform activity turns while running fast s. Hopping Extreme difficulty or unable to perform activity t. Rolling over in Quite a bit of difficulty bed LEFI Score Lower Extremity 24 Functional Index Score Outpatient Therapy Assessment Impairments Problems/ Palpation Tenderness,Impaired Range of Motion,Impaired Impairmments Strength,Impaired Transfers,Impaired Gait Pattern, Impaired Walking,Impaired Standing,Impaired Household Care,Impaired Stair Climbing,Impaired Incline Stepping, Impaired Stepping on Uneven Surface,Impaired Balance, Subjective C/O Pain,Impaired Self Care/Self Management Prognosis Rehab Potential Good Clinical Impression Consistent with Yes Diagnosis PT Patient Goals PT Patient Goals PT Short Term 3 weeks: Patient Goals 1. Verbalize compliance with HEP to assist with progress. 2. Improve pain at worst to 4/10 on VAS to improve overall QOL/function. 3. Improve LEFS score to 34/80 to improve overall QOL/ function. 4. Improve TUG time to 31 or less to decrease fall risk. 5. Perform NuStep x10' with RPE 5/10 or less and SpO2 96% or above to assist with endurance. PT Hand Surgeon Patient 6 weeks: Goals 1. Improve BLE MMT to 4-4+/5 grossly to assist with function. 2. Improve LEFS score to 44/80 to improve overall QOL/ function. 3. Improve TUG score to 21 or less to decrease fall risk. 4. Improve 5x sit to stand to 14 or less to decrease fall risk. 5. Improve pain at worst to 2/10 on VAS to improve overall QOL/function. 6. [place] 2 steps with SPC properly to assist with safe home navigation. Outpatient Therapy Plan of Care Treatment Plan May Include Therapeutic Exercise Yes Including Home Exercise Program Manual Therapy Yes Techniques Neuromuscular Re- Yes education Therapeutic Yes Activities to Return to Previous Functional/Work Level Gait Training Yes ADL/Self Care Yes Education Mechanical Traction Yes Dry Needling Yes Thermal Modalities Yes Electrical Yes Stimulation Ultrasound/ Yes Phonophoresis Iontophoresis Yes Massage Yes Group Therapy for Yes Medicare Eval/Re-Eval Yes Frequency Times per week 2 Duration Number of Weeks 4-6 Addendums This patient is a No candidate for social or vocational rehab ? Patient/Guardian Yes verbally acknowledges understanding of treatment program and consents to further treatment? Patient/Guardian Yes verbally acknowledges understanding of diagnosis, prognosis and goals for treatment? Eval Complexity PT Charges 77965 - Moderate Complexity Shoulder/Elbow Eval Shoulder Objective Measurements Elbow Objective Measurements PHYSICIAN CERTIFICATION: I certify the specified therapy services for Iveth Purcell are required, authorized, and reviewed every 30 days.
== END 2025-08-09 23:59 | disposition home or self-care (01) ==
LOC: PT 11:00
PROVIDERS: Visit Provider Nurse Practitioner Family
DX: M25.551 Pain in right hip (principal); Z74.09 Other reduced mobility; Z87.898 Personal history of other specified conditions; G89.29 Other chronic pain
CPT/HCPCS: 97110; 97162; 97530

== ENCOUNTER 2025-08-24 10:34 | Outpatient (CLI) | payer MEDICARE, SELFPAY ==
--- NOTE | 2025-08-24 10:35 | MM_ITS ---
PROCEDURE INFORMATION: Exam: MG Bilateral Screening 3D Mammography Exam date and time: 08/24/2025 10:37 AM Age: 75 years old Clinical indication: Screening examination TECHNIQUE: Imaging protocol: Bilateral Screening tomosynthesis and 2D mammography including computer-aided detection (CAD) when performed. COMPARISON: 1. MG MM DIG SCREENING MAMM BI W/CAD 04/26/2024 10:51 AM 2. MG MM DIG MAMM DX UNILAT LT CAD 08/03/2023 2:34 PM FINDINGS: MAMMOGRAPHY: Breast composition: The breasts are almost entirely fatty. Mass: None. Architectural distortion: Normal postlumpectomy changes are seen on the left including post surgical distortion, benign-type calcifications, parenchymal density, and skin thickening. Calcifications: No suspicious calcifications. Asymmetric density: None. Skin thickening: None. Axillary adenopathy: None. IMPRESSION: No mammographic evidence of malignancy. Annual screening is recommended unless otherwise clinically indicated. ASSESSMENT: BI-RADS Category 2: Benign.
== END 2025-08-24 23:59 | disposition home or self-care (01) ==
LOC: RAD 10:34
PROVIDERS: PCP Family Medicine; Visit Provider Family Medicine
DX: Z12.31 Encounter for screening mammogram for malignant neoplasm of breast (principal); R92.1 Mammographic calcification found on diagnostic imaging of breast; Z90.12 Acquired absence of left breast and nipple
CPT/HCPCS: 77063; 77067